=== PATIENT | female | born 1960 | race Caucasian/White ===

== ENCOUNTER 2024-01-08 13:11 | Outpatient (RCR) | payer MEDICARE, OTHER, SELFPAY ==
[2024-01-02] VITALS (9 sets, daily range): BP systolic 113–157; BP diastolic 47–86; BMI 32.2
[2024-01-02] MEDS: NSS 1000 IV (10:42)
[2024-01-02] MEDS: TYLENOL 650 MG PO (10:43)
[2024-01-02] MEDS: BENADRYL 51 MG IV (10:44)
[2024-01-02] MEDS: SOLU-CORTEF 100 MG IV (10:44)
[2024-01-02 10:47] LABS: % Basophils 0.8 % (0-2); % Eosinophils 0.8 % (0-6); % Lymphocytes 31.3 % (20.5-51.1); % Neutrophils 61.1 % (42.2-75.2); Absolute Lymphocytes 1.2 10^3/uL (1.2-3.4); Absolute Monocytes 0.2 10^3/uL (0.1-0.6); Absolute Neutrophils 2.4 10^3/uL (1.4-6.5); Hematocrit 38.1 % (37.0-47.0); Hemoglobin 13.3 g/dL (12.0-16.0); Mean Corp Hgb Conc. 34.9 g/dL (33.0-37.0); Mean Corpuscular Hgb 32.8 pg (27.0-31.0); Mean Corpuscular Volume 94.1 fL (81.0-99.0); Mean Platelet Volume 10.1 fL (7.4-10.4); Platelet Count 185 10^3/uL (130-400); Red Blood Cell Count 4.05 10^6/uL (4.20-5.40); Red Cell Dist. Width 13.3 % (11.5-14.5); White Blood Cell Count 3.8 10^3/uL (4.8-10.8)
[2024-01-02] MEDS: GAMMAGARD 50 IV (11:21)
[2024-01-02 11:45] LABS: ALT (SGPT) 18 U/L (0-35); AST (SGOT) 28 U/L (14-36); Alkaline Phosphatase 98 U/L (38-126); Blood Urea Nitrogen 9 mg/dl (7-17); Calcium 9.3 mg/dl (8.4-10.2); Carbon Dioxide 26 mmol/L (22-30); Chloride 105 mmol/L (98-107); Estimated Creatinine Clearance 57 ml/min; Glucose 118 mg/dl (70-99); IgG 1058 mg/dl (700-1600); Potassium 3.8 mmol/L (3.5-5.1); Sodium 137 mmol/L (135-145); Total Bilirubin 0.7 mg/dl (0.2-1.3); Total Protein 6.5 g/dl (6.3-8.2); eGFR > 60.00
[2024-01-02] MEDS: GAMMAGARD 300 IV (12:14)
[2024-01-08 13:24] VITALS: BP 154/94
[2024-01-08] MEDS: NUCALA 1 MG SC (13:34)
== END 2024-01-09 08:13 | disposition home or self-care (01) ==
LOC: OID 13:11
PROVIDERS: ATTENDING PHYSICIAN Internal Medicine Critical Care Medicine; FAMILY PHYSICIAN Family Medicine
DX: J45.50 Severe persistent asthma, uncomplicated (principal); L50.9 Urticaria, unspecified; J82.83 Eosinophilic asthma; D80.1 Nonfamilial hypogammaglobulinemia; R06.89 Other abnormalities of breathing; J98.4 Other disorders of lung; D80.9 Immunodeficiency with predominantly antibody defects, unspecified; R91.8 Other nonspecific abnormal finding of lung field
CPT/HCPCS: 36415; 80053; 82784; 85025; 96361; 96365; 96366; 96367; 96372; 96375; J1569; J2182

== ENCOUNTER 2024-02-04 13:23 | Outpatient (RCR) | payer MEDICARE, OTHER, SELFPAY ==
[2024-01-30] VITALS (9 sets, daily range): BP systolic 109–133; BP diastolic 63–81; BMI 31.8
[2024-01-30] MEDS: TYLENOL 650 MG PO (10:29)
[2024-01-30] MEDS: NSS 1000 IV (10:30)
[2024-01-30] MEDS: SOLU-CORTEF 100 MG IV (10:33)
[2024-01-30] MEDS: BENADRYL 51 MG IV (10:33)
[2024-01-30] MEDS: GAMMAGARD 50 IV (11:03)
[2024-01-30] MEDS: GAMMAGARD 300 IV (12:00)
[2024-02-04 13:25] VITALS: BP 146/84
[2024-02-04] MEDS: NUCALA 1 MG SC (13:42)
== END 2024-02-23 23:59 | disposition home or self-care (01) ==
LOC: OID 13:23
PROVIDERS: ATTENDING PHYSICIAN Internal Medicine Critical Care Medicine; FAMILY PHYSICIAN Family Medicine
DX: J45.50 Severe persistent asthma, uncomplicated (principal); L50.9 Urticaria, unspecified; J82.83 Eosinophilic asthma; D80.1 Nonfamilial hypogammaglobulinemia; R06.89 Other abnormalities of breathing; J98.4 Other disorders of lung; D80.9 Immunodeficiency with predominantly antibody defects, unspecified; R91.8 Other nonspecific abnormal finding of lung field
CPT/HCPCS: 96361; 96365; 96366; 96367; 96372; 96375; J1569; J2182

== ENCOUNTER 2024-03-03 12:54 | Outpatient (RCR) | payer MEDICARE, OTHER, SELFPAY ==
[2024-02-27] VITALS (10 sets, daily range): BP systolic 110–149; BP diastolic 48–82; BMI 32.0
[2024-02-27] MEDS: NSS 1000 IV (11:23)
[2024-02-27] MEDS: TYLENOL 650 MG PO (11:24)
[2024-02-27] MEDS: SOLU-CORTEF 100 MG IV (11:24)
[2024-02-27] MEDS: BENADRYL 51 MG IV (11:25)
[2024-02-27] MEDS: GAMMAGARD 50 IV (11:59)
[2024-02-27] MEDS: GAMMAGARD 300 IV (12:59)
[2024-03-03 13:25] VITALS: BP 141/79
[2024-03-03] MEDS: NUCALA 1 MG SC (13:39)
== END 2024-03-04 08:17 | disposition home or self-care (01) ==
LOC: OID 12:54
PROVIDERS: ATTENDING PHYSICIAN Internal Medicine Critical Care Medicine; FAMILY PHYSICIAN Family Medicine
DX: J45.50 Severe persistent asthma, uncomplicated (principal); L50.9 Urticaria, unspecified; J82.83 Eosinophilic asthma; D80.1 Nonfamilial hypogammaglobulinemia; R06.89 Other abnormalities of breathing; J98.4 Other disorders of lung; D80.9 Immunodeficiency with predominantly antibody defects, unspecified; R91.8 Other nonspecific abnormal finding of lung field
CPT/HCPCS: 96361; 96365; 96366; 96367; 96372; 96375; J1569; J2182

== ENCOUNTER 2024-04-23 10:02 | Outpatient (RCR) | payer MEDICARE, OTHER, SELFPAY ==
[2024-03-26] VITALS (10 sets, daily range): BP systolic 96–129; BP diastolic 55–70; BMI 32.2
[2024-03-26 11:10] LABS: % Basophils 0.2 % (0-2); % Eosinophils 0.6 % (0-6); % Immature Granulocytes 0.6 % (0-0.5); % Lymphocytes 21.2 % (20.5-51.1); % Monocytes 9.4 % (1.7-9.3); Absolute Lymphocytes 1.1 10^3/uL (1.2-3.4); Absolute Monocytes 0.5 10^3/uL (0.1-0.6); Absolute Neutrophils 3.4 10^3/uL (1.4-6.5); Hematocrit 30.7 % (37.0-47.0); Hemoglobin 10.5 g/dL (12.0-16.0); Mean Corp Hgb Conc. 34.2 g/dL (33.0-37.0); Mean Corpuscular Hgb 32.1 pg (27.0-31.0); Mean Corpuscular Volume 93.9 fL (81.0-99.0); Mean Platelet Volume 9.1 fL (7.4-10.4); Platelet Count 268 10^3/uL (130-400); Red Blood Cell Count 3.27 10^6/uL (4.20-5.40); Red Cell Dist. Width 12.5 % (11.5-14.5)
[2024-03-26] MEDS: TYLENOL 650 MG PO (11:14)
[2024-03-26] MEDS: NSS 1000 IV (11:15)
[2024-03-26] MEDS: SOLU-CORTEF 100 MG IV (11:15)
[2024-03-26] MEDS: BENADRYL 51 MG IV (11:16)
[2024-03-26] MEDS: GAMMAGARD 50 IV (11:49)
[2024-03-26 12:23] LABS: ALT (SGPT) 18 U/L (0-35); AST (SGOT) 25 U/L (14-36); Albumin 3.2 g/dl (3.5-5.0); Alkaline Phosphatase 229 U/L (38-126); Blood Urea Nitrogen 5 mg/dl (7-17); Calcium 8.9 mg/dl (8.4-10.2); Carbon Dioxide 31 mmol/L (22-30); Chloride 100 mmol/L (98-107); Estimated Creatinine Clearance 74 ml/min; Glucose 110 mg/dl (70-99); Potassium 3.3 mmol/L (3.5-5.1); Sodium 136 mmol/L (135-145); Total Bilirubin 0.8 mg/dl (0.2-1.3); Total Protein 5.9 g/dl (6.3-8.2); eGFR > 60.00
[2024-03-26] MEDS: GAMMAGARD 300 IV (13:19)
[2024-03-26 14:37] LABS: IgG 827 mg/dl (700-1600)
[2024-03-30 13:00] VITALS: BP 144/77
[2024-03-30] MEDS: NUCALA 1 MG SC (13:49)
[2024-04-23] VITALS (9 sets, daily range): BP systolic 106–156; BP diastolic 80–97; BMI 31.6
[2024-04-23] MEDS: TYLENOL 650 MG PO (10:37)
[2024-04-23] MEDS: NSS 1000 IV (10:37)
[2024-04-23] MEDS: SOLU-CORTEF 100 MG IV (10:50)
[2024-04-23] MEDS: BENADRYL 51 MG IV (10:51)
[2024-04-23] MEDS: GAMMAGARD 50 IV (11:21)
[2024-04-23] MEDS: GAMMAGARD 300 IV (12:20)
== END 2024-04-24 10:22 | disposition home or self-care (01) ==
LOC: OID 10:02
PROVIDERS: ATTENDING PHYSICIAN Internal Medicine Critical Care Medicine; FAMILY PHYSICIAN Family Medicine
DX: J45.50 Severe persistent asthma, uncomplicated (principal); L50.9 Urticaria, unspecified; J82.83 Eosinophilic asthma; D80.1 Nonfamilial hypogammaglobulinemia; R06.89 Other abnormalities of breathing; J98.4 Other disorders of lung; D80.9 Immunodeficiency with predominantly antibody defects, unspecified; R91.8 Other nonspecific abnormal finding of lung field
CPT/HCPCS: 36415; 80053; 82784; 85025; 96361; 96365; 96366; 96367; 96372; 96375; J1569; J2182

== ENCOUNTER 2024-05-21 10:17 | Outpatient (RCR) | payer MEDICARE, OTHER, SELFPAY ==
[2024-04-28 13:21] VITALS: BP 122/80
[2024-04-28] MEDS: NUCALA 1 MG SC (13:39)
[2024-05-21] VITALS (10 sets, daily range): BP systolic 107–149; BP diastolic 66–93
[2024-05-21] MEDS: NSS 1000 IV (11:24)
[2024-05-21] MEDS: TYLENOL 650 MG PO (11:24)
[2024-05-21] MEDS: BENADRYL 51 MG IV (11:27)
[2024-05-21] MEDS: SOLU-CORTEF 100 MG IV (11:32)
[2024-05-21] MEDS: GAMMAGARD 50 IV (12:33)
[2024-05-21] MEDS: GAMMAGARD 300 IV (13:39)
== END 2024-05-22 11:09 | disposition home or self-care (01) ==
LOC: OID 10:17
PROVIDERS: ATTENDING PHYSICIAN Internal Medicine Critical Care Medicine; FAMILY PHYSICIAN Family Medicine
DX: J45.50 Severe persistent asthma, uncomplicated (principal); L50.9 Urticaria, unspecified; J82.83 Eosinophilic asthma; D80.1 Nonfamilial hypogammaglobulinemia; R06.89 Other abnormalities of breathing; J98.4 Other disorders of lung; D80.9 Immunodeficiency with predominantly antibody defects, unspecified; R91.8 Other nonspecific abnormal finding of lung field
CPT/HCPCS: 96360; 96365; 96366; 96367; 96372; 96374; 96375; J1569; J2182

== ENCOUNTER → 2024-05-27 11:24 | Outpatient (REF) | payer MEDICARE, OTHER, SELFPAY | LOC: HWRCS 11:24 | PROVIDERS: ATTENDING PHYSICIAN Internal Medicine Cardiovascular Disease; FAMILY PHYSICIAN Family Medicine | DX: I45.81 Long QT syndrome (principal) | CPT/HCPCS: 93306 ==

== ENCOUNTER 2024-06-18 10:10 | Outpatient (RCR) | payer MEDICARE, OTHER, SELFPAY ==
[2024-06-02 13:10] VITALS: BP 139/69
[2024-06-02] MEDS: NUCALA 1 MG SC (13:49)
[2024-06-18] VITALS (8 sets, daily range): BP systolic 99–142; BP diastolic 48–79; BMI 31.4
[2024-06-18] MEDS: TYLENOL 650 MG PO (10:47)
[2024-06-18] MEDS: NSS 1000 IV (10:47)
[2024-06-18] MEDS: SOLU-CORTEF 100 MG IV (10:48)
[2024-06-18] MEDS: BENADRYL 51 MG IV (10:50)
[2024-06-18] MEDS: GAMMAGARD 50 IV (11:31)
[2024-06-18] MEDS: GAMMAGARD 300 IV (12:31)
== END 2024-06-19 08:19 | disposition home or self-care (01) ==
LOC: OID 10:10
PROVIDERS: ATTENDING PHYSICIAN Internal Medicine Critical Care Medicine; FAMILY PHYSICIAN Family Medicine
DX: J45.50 Severe persistent asthma, uncomplicated (principal); L50.9 Urticaria, unspecified; J82.83 Eosinophilic asthma; D80.1 Nonfamilial hypogammaglobulinemia; R06.89 Other abnormalities of breathing; J98.4 Other disorders of lung; D80.9 Immunodeficiency with predominantly antibody defects, unspecified; R91.8 Other nonspecific abnormal finding of lung field
CPT/HCPCS: 96361; 96365; 96366; 96367; 96372; 96375; J1569; J2182

== ENCOUNTER 2024-07-16 09:52 | Outpatient (RCR) | payer MEDICARE, OTHER, SELFPAY ==
[2024-07-01 13:26] VITALS: BP 148/82
[2024-07-01 13:50] LABS: % Basophils 0.2 % (0-2); % Eosinophils 0.2 % (0-6); % Immature Granulocytes 0.2 % (0-0.5); % Lymphocytes 31.3 % (20.5-51.1); % Monocytes 6.1 % (1.7-9.3); Absolute Lymphocytes 1.3 10^3/uL (1.2-3.4); Absolute Monocytes 0.3 10^3/uL (0.1-0.6); Absolute Neutrophils 2.6 10^3/uL (1.4-6.5); Hematocrit 36.9 % (37.0-47.0); Hemoglobin 12.4 g/dL (12.0-16.0); Mean Corp Hgb Conc. 33.6 g/dL (33.0-37.0); Mean Corpuscular Hgb 31.4 pg (27.0-31.0); Mean Corpuscular Volume 93.4 fL (81.0-99.0); Mean Platelet Volume 10.7 fL (7.4-10.4); Platelet Count 136 10^3/uL (130-400); Red Blood Cell Count 3.95 10^6/uL (4.20-5.40); Red Cell Dist. Width 13.5 % (11.5-14.5); White Blood Cell Count 4.1 10^3/uL (4.8-10.8)
[2024-07-01] MEDS: NUCALA 1 MG SC (13:52)
[2024-07-01 15:44] LABS: ALT (SGPT) 18 U/L (0-35); AST (SGOT) 30 U/L (14-36); Albumin 3.9 g/dl (3.5-5.0); Alkaline Phosphatase 91 U/L (38-126); Blood Urea Nitrogen 11 mg/dl (7-17); Calcium 9.1 mg/dl (8.4-10.2); Carbon Dioxide 30 mmol/L (22-30); Chloride 105 mmol/L (98-107); Glucose 111 mg/dl (70-99); Potassium 4.9 mmol/L (3.5-5.1); Sodium 139 mmol/L (135-145); Total Bilirubin 0.7 mg/dl (0.2-1.3); Total Protein 6.5 g/dl (6.3-8.2); eGFR > 60.00
[2024-07-16] VITALS (9 sets, daily range): BP systolic 94–135; BP diastolic 51–81; BMI 32.0
[2024-07-16] MEDS: NSS 1000 IV (10:37)
[2024-07-16] MEDS: TYLENOL 650 MG PO (10:37)
[2024-07-16] MEDS: SOLU-CORTEF 100 MG IV (10:43)
[2024-07-16] MEDS: BENADRYL 51 MG IV (10:44)
[2024-07-16 10:47] LABS: % Basophils 0.3 % (0-2); % Eosinophils 0.2 % (0-6); % Immature Granulocytes 0.2 % (0-0.5); % Lymphocytes 15.8 % (20.5-51.1); % Monocytes 8.8 % (1.7-9.3); % Neutrophils 74.7 % (42.2-75.2); Absolute Monocytes 0.6 10^3/uL (0.1-0.6); Absolute Neutrophils 4.8 10^3/uL (1.4-6.5); Hematocrit 33.7 % (37.0-47.0); Hemoglobin 11.5 g/dL (12.0-16.0); Mean Corp Hgb Conc. 34.1 g/dL (33.0-37.0); Mean Corpuscular Hgb 31.9 pg (27.0-31.0); Mean Corpuscular Volume 93.4 fL (81.0-99.0); Platelet Count 175 10^3/uL (130-400); Red Blood Cell Count 3.61 10^6/uL (4.20-5.40); Red Cell Dist. Width 13.7 % (11.5-14.5); White Blood Cell Count 6.5 10^3/uL (4.8-10.8)
[2024-07-16] MEDS: GAMMAGARD 50 IV (11:16)
[2024-07-16 11:20] LABS: Erythrocyte Sed Rate 59 mm/hour (0-20)
[2024-07-16 11:38] LABS: ALT (SGPT) 11 U/L (0-35); AST (SGOT) 25 U/L (14-36); Albumin 3.4 g/dl (3.5-5.0); Alkaline Phosphatase 100 U/L (38-126); Blood Urea Nitrogen 10 mg/dl (7-17); Calcium 8.9 mg/dl (8.4-10.2); Carbon Dioxide 30 mmol/L (22-30); Chloride 100 mmol/L (98-107); Estimated Creatinine Clearance 56 ml/min; Glucose 102 mg/dl (70-99); Potassium 3.9 mmol/L (3.5-5.1); Sodium 138 mmol/L (135-145); Total Protein 5.8 g/dl (6.3-8.2); eGFR > 60.00
[2024-07-16 11:50] LABS: IgG 873 mg/dl (700-1600)
[2024-07-16] MEDS: GAMMAGARD 300 IV (12:09)
== END 2024-07-17 10:50 | disposition home or self-care (01) ==
LOC: OID 09:52
PROVIDERS: ATTENDING PHYSICIAN Internal Medicine Critical Care Medicine; FAMILY PHYSICIAN Family Medicine
DX: J45.50 Severe persistent asthma, uncomplicated; J82.83 Eosinophilic asthma; L50.9 Urticaria, unspecified; D80.1 Nonfamilial hypogammaglobulinemia; R06.89 Other abnormalities of breathing; J98.4 Other disorders of lung; D80.9 Immunodeficiency with predominantly antibody defects, unspecified; R91.8 Other nonspecific abnormal finding of lung field
CPT/HCPCS: 36415; 80053; 82784; 85025; 85652; 96361; 96365; 96366; 96372; 96375; J1569; J2182

== ENCOUNTER 2024-08-13 10:12 | Outpatient (RCR) | payer MEDICARE, OTHER, SELFPAY ==
[2024-07-28 13:25] VITALS: BP 135/70
[2024-07-28] MEDS: NUCALA 1 MG SC (13:33)
[2024-08-13] VITALS (8 sets, daily range): BP systolic 136–161; BP diastolic 68–95
[2024-08-13] MEDS: NSS 1000 IV (10:59)
[2024-08-13] MEDS: TYLENOL 650 MG PO (10:59)
[2024-08-13] MEDS: SOLU-CORTEF 100 MG IV (11:00)
[2024-08-13] MEDS: BENADRYL 51 MG IV (11:02)
[2024-08-13] MEDS: GAMMAGARD 50 IV (11:32)
[2024-08-13] MEDS: GAMMAGARD 300 IV (12:17)
== END 2024-08-14 09:53 | disposition home or self-care (01) ==
LOC: OID 10:12
PROVIDERS: ATTENDING PHYSICIAN Internal Medicine Critical Care Medicine; FAMILY PHYSICIAN Family Medicine
DX: J45.50 Severe persistent asthma, uncomplicated (principal); L50.9 Urticaria, unspecified; J82.83 Eosinophilic asthma; D80.1 Nonfamilial hypogammaglobulinemia; R06.89 Other abnormalities of breathing; J98.4 Other disorders of lung; D80.9 Immunodeficiency with predominantly antibody defects, unspecified; R91.8 Other nonspecific abnormal finding of lung field
CPT/HCPCS: 96365; 96366; 96367; 96372; 96374; 96375; J1569; J2182

== ENCOUNTER 2024-09-22 13:17 | Outpatient (RCR) | payer MEDICARE, OTHER, SELFPAY ==
[2024-08-25 13:33] VITALS: BP 124/84
[2024-08-25] MEDS: NUCALA 1 MG SC (14:06)
[2024-09-10] VITALS (10 sets, daily range): BP systolic 138–159; BP diastolic 47–88; BMI 31.9
[2024-09-10] MEDS: NSS 1000 IV (10:45)
[2024-09-10] MEDS: SOLU-CORTEF 100 MG IV (10:46)
[2024-09-10] MEDS: TYLENOL 650 MG PO (10:47)
[2024-09-10] MEDS: BENADRYL 51 MG IV (10:47)
[2024-09-10] MEDS: GAMMAGARD 50 IV (11:20)
[2024-09-10] MEDS: GAMMAGARD 300 IV (12:20)
[2024-09-22 13:28] VITALS: BP 152/77
[2024-09-22] MEDS: NUCALA 1 MG SC (13:36)
== END 2024-09-23 10:25 | disposition home or self-care (01) ==
LOC: OID 13:17
PROVIDERS: ATTENDING PHYSICIAN Internal Medicine Critical Care Medicine; FAMILY PHYSICIAN Family Medicine
DX: J45.50 Severe persistent asthma, uncomplicated (principal); L50.9 Urticaria, unspecified; J82.83 Eosinophilic asthma; D80.1 Nonfamilial hypogammaglobulinemia; R06.89 Other abnormalities of breathing; J98.4 Other disorders of lung; D80.9 Immunodeficiency with predominantly antibody defects, unspecified; R91.8 Other nonspecific abnormal finding of lung field
CPT/HCPCS: 96361; 96365; 96366; 96367; 96372; 96375; J1569; J2182

== ENCOUNTER 2024-10-20 13:03 | Outpatient (RCR) | payer MEDICARE, OTHER, SELFPAY ==
[2024-09-30] VITALS (10 sets, daily range): BP systolic 91–134; BP diastolic 44–86
[2024-09-30 10:56] LABS: % Basophils 0.4 % (0-2); % Eosinophils 0.7 % (0-6); % Lymphocytes 31.3 % (20.5-51.1); % Monocytes 6.9 % (1.7-9.3); % Neutrophils 60.7 % (42.2-75.2); Absolute Lymphocytes 1.4 10^3/uL (1.2-3.4); Absolute Monocytes 0.3 10^3/uL (0.1-0.6); Absolute Neutrophils 2.7 10^3/uL (1.4-6.5); Hematocrit 37.7 % (37.0-47.0); Hemoglobin 12.9 g/dL (12.0-16.0); Mean Corp Hgb Conc. 34.2 g/dL (33.0-37.0); Mean Corpuscular Hgb 31.5 pg (27.0-31.0); Mean Corpuscular Volume 92.2 fL (81.0-99.0); Mean Platelet Volume 10.3 fL (7.4-10.4); Platelet Count 201 10^3/uL (130-400); Red Blood Cell Count 4.09 10^6/uL (4.20-5.40); Red Cell Dist. Width 13.4 % (11.5-14.5); White Blood Cell Count 4.5 10^3/uL (4.8-10.8)
[2024-09-30] MEDS: NSS 1000 IV (11:00)
[2024-09-30] MEDS: TYLENOL 650 MG PO (11:01)
[2024-09-30] MEDS: SOLU-CORTEF 100 MG IV (11:02)
[2024-09-30] MEDS: BENADRYL 51 MG IV (11:02)
[2024-09-30] MEDS: GAMMAGARD 50 IV (11:57)
[2024-09-30] MEDS: GAMMAGARD 300 IV (12:58)
[2024-09-30 13:56] LABS: ALT (SGPT) 24 U/L (0-35); AST (SGOT) 31 U/L (14-36); Albumin 4.2 g/dl (3.5-5.0); Alkaline Phosphatase 96 U/L (38-126); Blood Urea Nitrogen 19 mg/dl (7-17); Calcium 9.5 mg/dl (8.4-10.2); Carbon Dioxide 23 mmol/L (22-30); Chloride 104 mmol/L (98-107); Glucose 87 mg/dl (70-99); Potassium 3.7 mmol/L (3.5-5.1); Sodium 141 mmol/L (135-145); Total Bilirubin 1.1 mg/dl (0.2-1.3); Total Protein 6.8 g/dl (6.3-8.2); eGFR > 60.00
[2024-09-30 23:35] LABS: IgG 1174 mg/dl (700-1600)
[2024-10-20 13:10] VITALS: BP 144/89
[2024-10-20] MEDS: NUCALA 1 MG SC (13:40)
== END 2024-10-21 11:17 | disposition home or self-care (01) ==
LOC: OID 13:03
PROVIDERS: ATTENDING PHYSICIAN Internal Medicine Critical Care Medicine; FAMILY PHYSICIAN Family Medicine
DX: J45.50 Severe persistent asthma, uncomplicated (principal); L50.9 Urticaria, unspecified; J82.83 Eosinophilic asthma; D80.1 Nonfamilial hypogammaglobulinemia; R06.89 Other abnormalities of breathing; J98.4 Other disorders of lung; D80.9 Immunodeficiency with predominantly antibody defects, unspecified; R91.8 Other nonspecific abnormal finding of lung field
CPT/HCPCS: 36415; 80053; 82784; 85025; 96365; 96366; 96367; 96372; 96375; J1569; J2182

== ENCOUNTER 2024-11-17 10:20 | Outpatient (RCR) | payer MEDICARE, OTHER, SELFPAY ==
[2024-11-05] VITALS (10 sets, daily range): BP systolic 132–170; BP diastolic 72–91
[2024-11-05] MEDS: NSS 1000 IV (10:34)
[2024-11-05] MEDS: BENADRYL 51 MG IV (10:34)
[2024-11-05] MEDS: TYLENOL 650 MG PO (10:35)
[2024-11-05] MEDS: SOLU-CORTEF 100 MG IV (10:35)
[2024-11-05] MEDS: GAMMAGARD 50 IV (11:00)
[2024-11-05] MEDS: GAMMAGARD 300 IV (11:57)
[2024-11-17 10:25] VITALS: BP 152/84
[2024-11-17] MEDS: NUCALA 1 MG SC (10:42)
== END 2024-11-19 08:27 | disposition home or self-care (01) ==
LOC: OID 10:20
PROVIDERS: ATTENDING PHYSICIAN Internal Medicine Critical Care Medicine; FAMILY PHYSICIAN Family Medicine
DX: J45.50 Severe persistent asthma, uncomplicated (principal); L50.9 Urticaria, unspecified; J82.83 Eosinophilic asthma; D80.1 Nonfamilial hypogammaglobulinemia; R06.89 Other abnormalities of breathing; J98.4 Other disorders of lung; D80.9 Immunodeficiency with predominantly antibody defects, unspecified; R91.8 Other nonspecific abnormal finding of lung field
CPT/HCPCS: 96361; 96365; 96366; 96367; 96372; 96375; J1569; J2182

== ENCOUNTER 2024-12-15 13:05 | Outpatient (RCR) | payer MEDICARE, OTHER, SELFPAY ==
[2024-12-03] VITALS (9 sets, daily range): BP systolic 130–157; BP diastolic 65–83; BMI 32.9
[2024-12-03] MEDS: TYLENOL 650 MG PO (10:42)
[2024-12-03] MEDS: SOLU-CORTEF 100 MG IV (10:44)
[2024-12-03] MEDS: BENADRYL 51 MG IV (10:45)
[2024-12-03] MEDS: NSS 1000 IV (10:52)
[2024-12-03] MEDS: GAMMAGARD 50 IV (11:20)
[2024-12-03] MEDS: GAMMAGARD 300 IV (12:13)
[2024-12-15 13:30] VITALS: BP 139/75
[2024-12-15] MEDS: NUCALA 1 MG SC (13:50)
== END 2024-12-16 10:19 | disposition home or self-care (01) ==
LOC: OID 13:05
PROVIDERS: ATTENDING PHYSICIAN Internal Medicine Critical Care Medicine; FAMILY PHYSICIAN Family Medicine
DX: J45.50 Severe persistent asthma, uncomplicated (principal); L50.9 Urticaria, unspecified; J82.83 Eosinophilic asthma; D80.1 Nonfamilial hypogammaglobulinemia; R06.89 Other abnormalities of breathing; J98.4 Other disorders of lung; D80.9 Immunodeficiency with predominantly antibody defects, unspecified; R91.8 Other nonspecific abnormal finding of lung field
CPT/HCPCS: 96361; 96365; 96366; 96372; 96374; 96375; J1569; J2182

== ENCOUNTER 2025-01-12 13:11 | Outpatient (RCR) | payer MEDICARE, OTHER, SELFPAY ==
[2025-01-04] VITALS (10 sets, daily range): BP systolic 114–145; BP diastolic 63–95
[2025-01-04 11:27] LABS: % Basophils 0.5 % (0-2); % Eosinophils 0.2 % (0-6); % Lymphocytes 23.9 % (20.5-51.1); % Neutrophils 68.4 % (42.2-75.2); Absolute Monocytes 0.3 10^3/uL (0.1-0.6); Absolute Neutrophils 2.8 10^3/uL (1.4-6.5); Hemoglobin 12.3 g/dL (12.0-16.0); Mean Corp Hgb Conc. 34.2 g/dL (33.0-37.0); Mean Corpuscular Hgb 29.6 pg (27.0-31.0); Mean Corpuscular Volume 86.5 fL (81.0-99.0); Platelet Count 211 10^3/uL (130-400); Red Blood Cell Count 4.16 10^6/uL (4.20-5.40); Red Cell Dist. Width 13.6 % (11.5-14.5); White Blood Cell Count 4.1 10^3/uL (4.8-10.8)
[2025-01-04] MEDS: NSS 1000 IV (11:32)
[2025-01-04] MEDS: TYLENOL 650 MG PO (11:36)
[2025-01-04] MEDS: SOLU-CORTEF 100 MG IV (11:38)
[2025-01-04] MEDS: BENADRYL 51 MG IV (11:38)
[2025-01-04] MEDS: GAMMAGARD 50 IV (12:07)
[2025-01-04 12:47] LABS: ALT (SGPT) 21 U/L (0-35); AST (SGOT) 33 U/L (14-36); Albumin 4.3 g/dl (3.5-5.0); Alkaline Phosphatase 102 U/L (38-126); Blood Urea Nitrogen 10 mg/dl (7-17); Calcium 9.5 mg/dl (8.4-10.2); Carbon Dioxide 23 mmol/L (22-30); Chloride 100 mmol/L (98-107); Glucose 131 mg/dl (70-99); Potassium 3.8 mmol/L (3.5-5.1); Sodium 138 mmol/L (135-145); Total Bilirubin 1.3 mg/dl (0.2-1.3); Total Protein 6.6 g/dl (6.3-8.2); eGFR > 60.00
[2025-01-04] MEDS: GAMMAGARD 300 IV (13:08)
[2025-01-04 14:22] LABS: IgG 1025 mg/dl (700-1600)
[2025-01-12 13:20] VITALS: BP 134/69
[2025-01-12] MEDS: NUCALA 1 MG SC (13:47)
== END 2025-01-13 09:44 | disposition home or self-care (01) ==
LOC: OID 13:11
PROVIDERS: ATTENDING PHYSICIAN Internal Medicine Critical Care Medicine; FAMILY PHYSICIAN Family Medicine
DX: J45.50 Severe persistent asthma, uncomplicated (principal); L50.9 Urticaria, unspecified; J82.83 Eosinophilic asthma; D80.1 Nonfamilial hypogammaglobulinemia; R06.89 Other abnormalities of breathing; J98.4 Other disorders of lung; D80.9 Immunodeficiency with predominantly antibody defects, unspecified; R91.8 Other nonspecific abnormal finding of lung field
CPT/HCPCS: 36415; 80053; 82784; 85025; 96361; 96365; 96366; 96367; 96372; 96375; J1569; J2182

== ENCOUNTER 2025-02-09 13:03 | Outpatient (RCR) | payer MEDICARE, OTHER, SELFPAY ==
[2025-01-28] VITALS (10 sets, daily range): BP systolic 134–158; BP diastolic 67–90; BMI 32.4
[2025-01-28] MEDS: NSS 1000 IV (10:23)
[2025-01-28] MEDS: TYLENOL 650 MG PO (10:23)
[2025-01-28] MEDS: SOLU-CORTEF 100 MG IV (10:27)
[2025-01-28] MEDS: BENADRYL 51 MG IV (10:28)
[2025-01-28] MEDS: GAMMAGARD 50 IV (10:57)
[2025-01-28] MEDS: GAMMAGARD 300 IV (11:54)
[2025-02-09 13:45] VITALS: BP 144/90
[2025-02-09] MEDS: NUCALA 1 MG SC (13:56)
== END 2025-02-22 14:51 | disposition home or self-care (01) ==
LOC: OID 13:03
PROVIDERS: ATTENDING PHYSICIAN Internal Medicine Critical Care Medicine; FAMILY PHYSICIAN Family Medicine
DX: J45.50 Severe persistent asthma, uncomplicated (principal); L50.9 Urticaria, unspecified; J82.83 Eosinophilic asthma; D80.1 Nonfamilial hypogammaglobulinemia; R06.89 Other abnormalities of breathing; J98.4 Other disorders of lung; D80.9 Immunodeficiency with predominantly antibody defects, unspecified; R91.8 Other nonspecific abnormal finding of lung field
CPT/HCPCS: 96361; 96365; 96366; 96367; 96372; 96375; J1569; J2182

== ENCOUNTER 2025-03-09 12:59 | Outpatient (RCR) | payer MEDICARE, OTHER, SELFPAY ==
[2025-02-25] VITALS (9 sets, daily range): BP systolic 120–145; BP diastolic 66–81; BMI 32.0
[2025-02-25] MEDS: TYLENOL 650 MG PO (10:40)
[2025-02-25] MEDS: SOLU-CORTEF 100 MG IV (10:41)
[2025-02-25] MEDS: NSS 1000 IV (10:42)
[2025-02-25] MEDS: BENADRYL 51 MG IV (10:43)
[2025-02-25] MEDS: GAMMAGARD 50 IV (11:15)
[2025-02-25] MEDS: GAMMAGARD 300 IV (12:10)
[2025-03-09 13:13] VITALS: BP 153/84
[2025-03-09] MEDS: NUCALA 1 MG SC (13:28)
== END 2025-03-24 10:36 | disposition home or self-care (01) ==
LOC: OID 12:59
PROVIDERS: ATTENDING PHYSICIAN Internal Medicine Critical Care Medicine; FAMILY PHYSICIAN Family Medicine
DX: J45.50 Severe persistent asthma, uncomplicated (principal); L50.9 Urticaria, unspecified; J82.83 Eosinophilic asthma; D80.1 Nonfamilial hypogammaglobulinemia; R06.89 Other abnormalities of breathing; J98.4 Other disorders of lung; D80.9 Immunodeficiency with predominantly antibody defects, unspecified; R91.8 Other nonspecific abnormal finding of lung field
CPT/HCPCS: 96361; 96365; 96366; 96367; 96372; 96375; J1569; J2182

== ENCOUNTER 2025-04-22 10:27 | Outpatient (RCR) | payer MEDICARE, OTHER, SELFPAY ==
[2025-03-25] VITALS (10 sets, daily range): BP systolic 122–141; BP diastolic 63–83; BMI 32.2
[2025-03-25] MEDS: TYLENOL 650 MG PO (10:47)
[2025-03-25] MEDS: NSS 1000 IV (10:47)
[2025-03-25] MEDS: SOLU-CORTEF 100 MG IV (10:48)
[2025-03-25] MEDS: BENADRYL 51 MG IV (10:49)
[2025-03-25] MEDS: GAMMAGARD 50 IV (11:20)
[2025-03-25 11:34] LABS: % Basophils 0.5 % (0-2); % Eosinophils 0.7 % (0-6); % Immature Granulocytes 0.4 % (0-0.5); % Lymphocytes 20.9 % (20.5-51.1); % Monocytes 7.8 % (1.7-9.3); % Neutrophils 69.7 % (42.2-75.2); Absolute Lymphocytes 1.2 10^3/uL (1.2-3.4); Absolute Monocytes 0.4 10^3/uL (0.1-0.6); Absolute Neutrophils 3.9 10^3/uL (1.4-6.5); Hematocrit 36.6 % (37.0-47.0); Hemoglobin 12.6 g/dL (12.0-16.0); Mean Corp Hgb Conc. 34.4 g/dL (33.0-37.0); Mean Corpuscular Hgb 31.3 pg (27.0-31.0); Nucleated Red Blood Cells % 0 %; Platelet Count 184 10^3/uL (130-400); Red Blood Cell Count 4.02 10^6/uL (4.20-5.40); Red Cell Dist. Width 14.6 % (11.5-14.5); White Blood Cell Count 5.6 10^3/uL (4.8-10.8)
[2025-03-25 11:49] LABS: ALT (SGPT) 21 U/L (0-35); AST (SGOT) 26 U/L (14-36); Albumin 4.3 g/dl (3.5-5.0); Alkaline Phosphatase 88 U/L (38-126); Blood Urea Nitrogen 15 mg/dl (7-17); Calcium 9.4 mg/dl (8.4-10.2); Carbon Dioxide 27 mmol/L (22-30); Chloride 104 mmol/L (98-107); Estimated Creatinine Clearance 42 ml/min; Glucose 84 mg/dl (70-99); Potassium 3.6 mmol/L (3.5-5.1); Sodium 141 mmol/L (135-145); Total Bilirubin 1.2 mg/dl (0.2-1.3); Total Protein 6.8 g/dl (6.3-8.2); eGFR 50.55
[2025-03-25 11:57] LABS: IgG 1102 mg/dl (700-1600)
[2025-03-25] MEDS: GAMMAGARD 300 IV (12:09)
[2025-04-06 13:35] VITALS: BP 145/80
[2025-04-06] MEDS: NUCALA 1 MG SC (13:46)
[2025-04-22] VITALS (9 sets, daily range): BP systolic 122–137; BP diastolic 63–78; BMI 33.0
[2025-04-22] MEDS: NSS 1000 IV (10:46)
[2025-04-22] MEDS: TYLENOL 650 MG PO (10:47)
[2025-04-22] MEDS: SOLU-CORTEF 100 MG IV (10:50)
[2025-04-22] MEDS: BENADRYL 51 MG IV (10:51)
[2025-04-22] MEDS: GAMMAGARD 50 IV (11:21)
[2025-04-22] MEDS: GAMMAGARD 300 IV (12:21)
== END 2025-04-23 10:00 | disposition home or self-care (01) ==
LOC: OID 10:27
PROVIDERS: ATTENDING PHYSICIAN Internal Medicine Critical Care Medicine; FAMILY PHYSICIAN Family Medicine
DX: J45.50 Severe persistent asthma, uncomplicated (principal); L50.9 Urticaria, unspecified; J82.83 Eosinophilic asthma; D80.1 Nonfamilial hypogammaglobulinemia; R06.89 Other abnormalities of breathing; J98.4 Other disorders of lung; D80.9 Immunodeficiency with predominantly antibody defects, unspecified; R91.8 Other nonspecific abnormal finding of lung field
CPT/HCPCS: 80053; 82784; 85025; 96361; 96365; 96366; 96367; 96372; 96375; J1569; J2182

== ENCOUNTER 2025-05-20 10:15 | Outpatient (RCR) | payer MEDICARE, OTHER, SELFPAY ==
[2025-05-04 13:25] VITALS: BP 137/70
[2025-05-04] MEDS: NUCALA 1 MG SC (13:58)
[2025-05-20] VITALS (9 sets, daily range): BP systolic 118–157; BP diastolic 72–89; BMI 32.2
[2025-05-20] MEDS: NSS 1000 IV (10:43)
[2025-05-20] MEDS: SOLU-CORTEF 100 MG IV (10:43)
[2025-05-20] MEDS: TYLENOL 650 MG PO (10:44)
[2025-05-20] MEDS: BENADRYL 51 MG IV (10:44)
[2025-05-20] MEDS: GAMMAGARD 50 IV (11:21)
[2025-05-20] MEDS: GAMMAGARD 300 IV (12:19)
== END 2025-05-21 09:53 | disposition home or self-care (01) ==
LOC: OID 10:15
PROVIDERS: ATTENDING PHYSICIAN Internal Medicine Critical Care Medicine; FAMILY PHYSICIAN Family Medicine
DX: J45.50 Severe persistent asthma, uncomplicated (principal); L50.9 Urticaria, unspecified; J82.83 Eosinophilic asthma; D80.1 Nonfamilial hypogammaglobulinemia; R06.89 Other abnormalities of breathing; J98.4 Other disorders of lung; D80.9 Immunodeficiency with predominantly antibody defects, unspecified; R91.8 Other nonspecific abnormal finding of lung field
CPT/HCPCS: 96361; 96365; 96366; 96367; 96372; 96375; J1569; J2182

== ENCOUNTER 2025-06-17 10:19 | Outpatient (RCR) | payer MEDICARE, OTHER, SELFPAY ==
[2025-06-02 14:09] VITALS: BP 114/63
[2025-06-02] MEDS: NUCALA 1 MG SC (14:19)
[2025-06-17] VITALS (9 sets, daily range): BP systolic 115–137; BP diastolic 61–76; BMI 32.4
[2025-06-17] MEDS: NSS 1000 IV (10:54)
[2025-06-17] MEDS: TYLENOL 650 MG PO (10:54)
[2025-06-17] MEDS: SOLU-CORTEF 100 MG IV (10:55)
[2025-06-17] MEDS: BENADRYL 51 MG IV (10:56)
[2025-06-17 11:04] LABS: Hematocrit 38.1 % (37.0-47.0); Hemoglobin 12.9 g/dL (12.0-16.0); Mean Corp Hgb Conc. 33.9 g/dL (33.0-37.0); Mean Corpuscular Volume 91.1 fL (81.0-99.0); Platelet Count 208 10^3/uL (130-400); Red Cell Dist. Width 14.2 % (11.5-14.5)
[2025-06-17] MEDS: GAMMAGARD 50 IV (11:26)
[2025-06-17 11:59] LABS: ALT (SGPT) 23 U/L (0-35); AST (SGOT) 30 U/L (14-36); Albumin 4.4 g/dl (3.5-5.0); Alkaline Phosphatase 85 U/L (38-126); Blood Urea Nitrogen 9 mg/dl (7-17); Calcium 9.5 mg/dl (8.4-10.2); Carbon Dioxide 24 mmol/L (22-30); Chloride 107 mmol/L (98-107); Estimated Creatinine Clearance 50 ml/min; Glucose 90 mg/dl (70-99); Potassium 3.5 mmol/L (3.5-5.1); Sodium 139 mmol/L (135-145); Total Protein 7.1 g/dl (6.3-8.2); eGFR > 60.00
[2025-06-17] MEDS: GAMMAGARD 300 IV (12:32)
== END 2025-06-18 08:49 | disposition home or self-care (01) ==
LOC: OID 10:19
PROVIDERS: ATTENDING PHYSICIAN Internal Medicine Critical Care Medicine; FAMILY PHYSICIAN Family Medicine
DX: J45.50 Severe persistent asthma, uncomplicated (principal); J82.83 Eosinophilic asthma; L50.9 Urticaria, unspecified; D80.1 Nonfamilial hypogammaglobulinemia; R06.89 Other abnormalities of breathing; J98.4 Other disorders of lung; D80.9 Immunodeficiency with predominantly antibody defects, unspecified; R91.8 Other nonspecific abnormal finding of lung field
CPT/HCPCS: 36415; 80053; 82784; 85025; 96361; 96365; 96366; 96367; 96372; 96375; J1569; J2182

== ENCOUNTER 2025-07-15 10:17 | Outpatient (RCR) | payer MEDICARE, OTHER, SELFPAY ==
[2025-06-29 13:23] VITALS: BP 152/81
[2025-06-29] MEDS: NUCALA 1 MG SC (13:38)
[2025-07-15] VITALS (9 sets, daily range): BP systolic 135–151; BP diastolic 74–89
[2025-07-15] MEDS: TYLENOL 650 MG PO (10:30)
[2025-07-15] MEDS: BENADRYL 51 MG IV (10:46)
[2025-07-15] MEDS: NSS 1000 IV (10:47)
[2025-07-15] MEDS: SOLU-CORTEF 100 MG IV (10:52)
[2025-07-15] MEDS: GAMMAGARD 50 IV (11:21)
[2025-07-15] MEDS: GAMMAGARD 300 IV (12:37)
== END 2025-07-16 08:50 | disposition home or self-care (01) ==
LOC: OID 10:17
PROVIDERS: ATTENDING PHYSICIAN Internal Medicine Critical Care Medicine; FAMILY PHYSICIAN Family Medicine
DX: J45.50 Severe persistent asthma, uncomplicated (principal); D80.1 Nonfamilial hypogammaglobulinemia; L50.9 Urticaria, unspecified; J82.83 Eosinophilic asthma; R06.89 Other abnormalities of breathing; J98.4 Other disorders of lung; D80.9 Immunodeficiency with predominantly antibody defects, unspecified; R91.8 Other nonspecific abnormal finding of lung field
CPT/HCPCS: 96361; 96365; 96366; 96367; 96372; J1569; J2182

== ENCOUNTER 2025-08-24 11:02 | Outpatient (RCR) | payer MEDICARE, OTHER, SELFPAY ==
[2025-07-27 11:10] VITALS: BP 121/75
[2025-07-27] MEDS: NUCALA 1 MG SC (11:32)
[2025-08-12] VITALS (9 sets, daily range): BP systolic 98–150; BP diastolic 52–85
[2025-08-12] MEDS: TYLENOL 650 MG PO (10:51)
[2025-08-12] MEDS: SOLU-CORTEF 100 MG IV (10:51)
[2025-08-12] MEDS: BENADRYL 51 MG IV (10:52)
[2025-08-12] MEDS: NSS 1000 IV (10:52)
[2025-08-12] MEDS: GAMMAGARD 50 IV (11:22)
[2025-08-12] MEDS: GAMMAGARD 300 IV (12:21)
[2025-08-24 11:00] VITALS: BP 134/72
[2025-08-24] MEDS: NUCALA 1 MG SC (11:24)
== END 2025-08-24 23:59 | disposition home or self-care (01) ==
LOC: OID 11:02
PROVIDERS: ATTENDING PHYSICIAN Internal Medicine Critical Care Medicine; FAMILY PHYSICIAN Family Medicine
DX: J45.50 Severe persistent asthma, uncomplicated (principal); D80.1 Nonfamilial hypogammaglobulinemia; L50.9 Urticaria, unspecified; J82.83 Eosinophilic asthma; R06.09 Other forms of dyspnea; R06.89 Other abnormalities of breathing; J98.4 Other disorders of lung; D80.9 Immunodeficiency with predominantly antibody defects, unspecified; R91.8 Other nonspecific abnormal finding of lung field
CPT/HCPCS: 96372; 96361; 96365; 96366; 96367; 96375; J1569; J2182

== ENCOUNTER 2025-09-09 10:59 | Outpatient (RCR) | payer MEDICARE, OTHER, SELFPAY ==
[2025-09-09] VITALS (9 sets, daily range): BP systolic 135–144; BP diastolic 64–94; BMI 32.4
[2025-09-09 11:34] LABS: Hematocrit 37.5 % (37.0-47.0); Hemoglobin 12.9 g/dL (12.0-16.0); Mean Corp Hgb Conc. 34.4 g/dL (33.0-37.0); Mean Corpuscular Volume 90.1 fL (81.0-99.0); Platelet Count 217 10^3/uL (130-400); Red Cell Dist. Width 13.0 % (11.5-14.5)
[2025-09-09] MEDS: NSS 1000 IV (11:37)
[2025-09-09] MEDS: SOLU-CORTEF 100 MG IV (11:38)
[2025-09-09] MEDS: BENADRYL 51 MG IV (11:38)
[2025-09-09] MEDS: TYLENOL 650 MG PO (11:38)
[2025-09-09] MEDS: GAMMAGARD 50 IV (12:07)
[2025-09-09 12:18] LABS: ALT (SGPT) 22 U/L (0-35); AST (SGOT) 30 U/L (14-36); Albumin 4.3 g/dl (3.5-5.0); Alkaline Phosphatase 98 U/L (38-126); Blood Urea Nitrogen 10 mg/dl (7-17); Calcium 9.4 mg/dl (8.4-10.2); Carbon Dioxide 24 mmol/L (22-30); Chloride 103 mmol/L (98-107); Estimated Creatinine Clearance 56 ml/min; Glucose 115 mg/dl (70-99); Potassium 3.8 mmol/L (3.5-5.1); Sodium 136 mmol/L (135-145); Total Protein 7.0 g/dl (6.3-8.2); eGFR > 60.00
[2025-09-09] MEDS: GAMMAGARD 300 IV (13:06)
== END 2025-09-24 23:59 | disposition home or self-care (01) ==
LOC: OID 10:59
PROVIDERS: ATTENDING PHYSICIAN Internal Medicine Critical Care Medicine; FAMILY PHYSICIAN Family Medicine
DX: J45.50 Severe persistent asthma, uncomplicated (principal); D80.1 Nonfamilial hypogammaglobulinemia; L50.9 Urticaria, unspecified; J82.83 Eosinophilic asthma; R06.89 Other abnormalities of breathing; J98.4 Other disorders of lung; D80.9 Immunodeficiency with predominantly antibody defects, unspecified; R91.8 Other nonspecific abnormal finding of lung field
CPT/HCPCS: 36415; 80053; 82784; 85025; 96361; 96365; 96366; 96367; 96375; J1569

== ENCOUNTER 2025-09-21 11:11 | Outpatient (RCR) | payer MEDICARE, OTHER, SELFPAY ==
[2025-09-21 11:25] VITALS: BP 147/74
[2025-09-21] MEDS: NUCALA 1 MG SC (11:31)
== END 2025-09-24 23:59 | disposition home or self-care (01) ==
LOC: OID 11:11
PROVIDERS: ATTENDING PHYSICIAN Internal Medicine Critical Care Medicine; FAMILY PHYSICIAN Family Medicine
DX: J45.50 Severe persistent asthma, uncomplicated (principal); D80.1 Nonfamilial hypogammaglobulinemia; L50.9 Urticaria, unspecified; J82.83 Eosinophilic asthma; R06.89 Other abnormalities of breathing; J98.4 Other disorders of lung; D80.9 Immunodeficiency with predominantly antibody defects, unspecified; R91.8 Other nonspecific abnormal finding of lung field
CPT/HCPCS: 96372; J2182

== ENCOUNTER 2025-10-07 10:09 | Outpatient (RCR) | payer MEDICARE, OTHER, SELFPAY ==
[2025-10-07] VITALS (9 sets, daily range): BP systolic 125–138; BP diastolic 63–85; BMI 32.1
[2025-10-07] MEDS: NSS 1000 IV (10:57)
[2025-10-07] MEDS: SOLU-CORTEF 100 MG IV (10:58)
[2025-10-07] MEDS: BENADRYL 51 MG IV (10:59)
[2025-10-07] MEDS: TYLENOL 650 MG PO (10:59)
[2025-10-07] MEDS: GAMMAGARD 50 IV (11:32)
[2025-10-07] MEDS: GAMMAGARD 300 IV (12:25)
== END 2025-10-22 14:28 | disposition home or self-care (01) ==
LOC: OID 10:09
PROVIDERS: ATTENDING PHYSICIAN Internal Medicine Critical Care Medicine; FAMILY PHYSICIAN Family Medicine
DX: J45.50 Severe persistent asthma, uncomplicated (principal); D80.1 Nonfamilial hypogammaglobulinemia; L50.9 Urticaria, unspecified; J82.83 Eosinophilic asthma; R06.89 Other abnormalities of breathing; J98.4 Other disorders of lung; D80.9 Immunodeficiency with predominantly antibody defects, unspecified; R91.8 Other nonspecific abnormal finding of lung field
CPT/HCPCS: 96361; 96365; 96366; 96367; 96375; J1569

== ENCOUNTER 2025-10-08 14:03 | Emergency (ER) | payer MEDICARE, OTHER, SELFPAY ==
[2025-10-08 14:10] VITALS: BP 139/85
[2025-10-08 18:45] VITALS: BMI 31.9
[2025-10-08 18:52] VITALS: BP 143/88
[2025-10-08 19:00] VITALS: BP 158/91
[2025-10-08 19:10] LABS: COVID-19 Antigen Positive (Negative); Hematocrit 36.9 % (37.0-47.0); Hemoglobin 12.8 g/dL (12.0-16.0); Mean Corp Hgb Conc. 34.7 g/dL (33.0-37.0); Mean Corpuscular Volume 88.7 fL (81.0-99.0); Nucleated Red Blood Cells % 0 %; Platelet Count 160 10^3/uL (130-400); Red Cell Dist. Width 13.8 % (11.5-14.5)
[2025-10-08 19:22] LABS: ALT (SGPT) 29 U/L (0-35); AST (SGOT) 34 U/L (14-36); Albumin 4.5 g/dl (3.5-5.0); Alkaline Phosphatase 122 U/L (38-126); Blood Urea Nitrogen 5 mg/dl (7-17); Calcium 9.2 mg/dl (8.4-10.2); Carbon Dioxide 29 mmol/L (22-30); Chloride 100 mmol/L (98-107); Estimated Creatinine Clearance 63 ml/min; Glucose 95 mg/dl (70-99); Potassium 4.1 mmol/L (3.5-5.1); Sodium 136 mmol/L (135-145); Total Protein 8.3 g/dl (6.3-8.2); eGFR > 60.00
--- NOTE | 2025-10-08 19:37 | ED.GENMED ---
History of Present Illness
General
Chief Complaint: Cold/Flu/URI Symptoms
Source: patient
Exam Limitations: none
Time Seen by Provider: 10/08/25 18:32
Nursing documentation reviewed up to this point in time: agreed with
History of Present Illness
History of Present Illness:
Patient to the emergency department with complaint of fever, body aches, worsening cough, nasal congestion, headache. Symptoms started yesterday. She has a prior history of COPD and is concerned that she has pneumonia. Brought to the emergency
department by friend for evaluation.
Past History
Past History
ED Past Medical History: Asthma, COPD, HTN, Hypercholesterolemia, NIDDM and Other (IgG Immune deficiency, pulmonary emboli, Long QT, hand tremors, Degenerative disc disease)
ED Past Surgical History: Cholecystectomy, Gynecological, Orthopedic and Other (IVC filter placement and removal, Hernia,)
Social History
Tobacco: Non-smoker
Alcohol: None
Drug: None
Personal: Single
Living: with family
Family History
Family History: Negative Diabetes, Hypertension or CAD
Review of Systems
Review of Systems
Constitutional: Reports fever and fatigue
EENT: Reports no symptoms
Respiratory: Reports cough
Cardiac: Reports no symptoms
ABD/GI: Reports no symptoms
: Reports no symptoms
Musculoskeletal: Reports no symptoms
Skin: Reports no symptoms
Neurological: Reports headache
Psychiatric: Reports no symptoms
Phy Exam
General Physical Exam
General Presentation: mild distress
General age: appears stated age
General Skin: warm and dry
General Habitus: normal
General Mental: alert
Cardiovascular Exam
Cardiovascular Exam: regular rate/rhythm
Pulmonary Exam
Pulmonary Exam: lungs clear and no respiratory distress
Cough: coarse cough
Gastrointestinal Exam
Gastrointestinal Exam: non tender and soft
Musculoskeletal Exam
Musculoskeletal Exam: full ROM and neuro vasc intact
Skin Exam
Skin Exam: normal color, warm/dry and no rash
Psychiatric Exam
Psychiatric Exam: normal mood/affect
Course
Orders/Labs/Results
Orders:
Orders
10/08/25 14:15
CXR2 [CR Chest - 2 Views ] Urgent
Comment:
Reason For Exam: cough
10/08/25 14:31
INF RAPID [Influenza A+B Rapid Molecular] Urgent
[facility] Source: Nasal Swab
Specimen Description:
10/08/25 18:55
CMP [Comprehensive Metabolic Panel] Urgent
COVID-19 Antigen Urgent
Source: Nasal Swab
Complete Blood Count/With Diff Urgent
Influenza A+B Rapid Molecular Routine
[facility] Source: [facility]
Specimen Description:
Abnormal Lab Results
10/08/25
18:55
RBC 4.16 L 10^6/uL
(4.20-5.40)
Hct 36.9 L %
(37.0-47.0)
Absolute Lymphs (auto) 0.9 L 10^3/uL
(1.2-3.4)
Lymphocytes % 18.4 L %
(20.5-51.1)
Monocytes % 9.9 H %
(1.7-9.3)
BUN 5 L mg/dl
(7-17)
Total Bilirubin 1.4 H mg/dl
(0.2-1.3)
Total Protein 8.3 H g/dl
(6.3-8.2)
SARS-CoV-2 Antigen Positive A
(Negative)
10/08/25 18:55
10/08/25 18:55
Vital Signs
Initial and Last Documented VS:
Initial Vital Signs
Temp Pulse Resp BP Pulse Ox
98.6 F 89 20 139/85 100
10/08/25 14:10 10/08/25 14:10 10/08/25 14:10 10/08/25 14:10 10/08/25 14:10
Last Documented Vital Signs
Temp Pulse Resp BP Pulse Ox
98.6 F 89 20 158/91 100
10/08/25 14:10 10/08/25 14:10 10/08/25 14:10 10/08/25 19:00 10/08/25 19:37
*Radiology
Radiology exam reviewed: radiology read reviewed
*Pulse Oximetry
SaO2: 100
Oxygen Mode of Delivery: Room air
Patient hypoxic: no
*Critical Care Note
Total Time (30-74mins, 75-104mins- exclusive of procedures): Not Applicable
Update Note
Update Note:
Patient to the emergency department for evaluation of flulike symptoms. Symptoms started yesterday. On arrival she is awake alert and oriented, in no distress. Vital signs stable temp of 98.6. Pulse ox is 98% on room air. Labs reviewed WBC is
4.8. She is COVID-positive, influenza negative. Chest x-ray reviewed no acute findings noted. On exam her lungs are clear to auscultation. No evidence of respiratory distress. she is able to talk in full sentences. Cough is coarse and
productive secretions. Discussed findings of testing with her. She will continue with her nebulized treatments at home. She will be discharged home tonight and will follow-up with her family doctor on Saturday. She was given instructions on signs
and symptoms to return to the emergency department and she is agreeable with this plan.
ED Attending Note
-
Portions of this chart may have been created with voice recognition software.� Occasional wrong word or��sound alike� substitutions may have occurred due to the inherent limitations of voice recognition software.
Discharge Plan
Departure
Patient Disposition: Home (Routine Discharge)
Date of Disposition: 10/08/25
Time of Disposition: 19:37
Patient with high blood pressure during this ER visit?: No
Condition: Good
Covid-19: Not Applicable
Discharge Problem:
COVID-19
Instructions: COVID-19 in adults (DC), Coronavirus Home Quarantine
Prescriptions:
No Action
alprazolam 1 MG tablet
1 mg PO .Q12H PRN (Reason: anxiety)
Patient Comments:
PATIENT TELEVISION NEWS ANCHOR ON 08/01/21 #45
Xarelto 20 MG tablet
20 mg PO DAILY
ipratropium-albuterol 3 ML solution for nebulization
3 ml inhalation R Q4HPRN PRN (Reason: SOB) Qty: 0 0RF
ascorbic acid (vitamin C) [Vitamin C] 1,000 MG tablet
1,000 mg PO DAILY
estradiol 1 APPLIC cream
1 applic vaginal ./TH
bupropion HCl 150 MG tablet extended release 24 hr
300 mg PO DAILY
oxycodone-acetaminophen [Percocet] 1 EACH tablet
1 tab PO Q6HPRN PRN (Reason: mod-severe pain)
Patient Comments:
PATIENT TELEVISION NEWS ANCHOR ON 08/01/21 #120
metformin 500 MG tablet
500 mg PO BID@0800,1700
Patient Comments:
takes if glucose oveer 120.
fluticasone propion-salmeterol [Advair Diskus] 1 EACH blister with device
1 puff IH R BID
valacyclovir 500 MG tablet
500 mg PO DAILY
Patient Comments:
PATIENT TELEVISION NEWS ANCHOR ON 07/03/21 #90
losartan-hydrochlorothiazide 1 EACH tablet
1 tab PO DAILY
buspirone 10 MG tablet
15 mg PO BID
atorvastatin 10 MG tablet
20 mg PO QPM
albuterol sulfate 1 PUFF HFA aerosol inhaler
2 puff inhalation R Q4HPRN PRN (Reason: SOB)
Nucala 100 MG/ML recon soln
100 mg SC [id number]
famotidine 40 MG tablet
20 mg PO BID
cyclobenzaprine 10 MG tablet
1 tab PO PRN PRN (Reason: muscle pain)
fluticasone propionate 1 SPRAY spray,suspension
1 spray intranasal PRN PRN (Reason: allergies)
acetaminophen [Tylenol] 325 MG capsule
2 cap PO .Q4H PRN (Reason: pain/fever)
ivermectin [Soolantra] 45 GM cream
1 applic topical BID
pimecrolimus [Elidel] 1 APPLIC cream
1 applic topical HS
L.acidoph,paracasei,B.animalis 1 EACH capsule
1 cap PO DAILY
prednisone 10 MG tablet
6 mg PO DAILY
Patient Comments:
ALTERNATES WITH 7MG
guaifenesin [Mucus Relief ER] 600 MG tablet extended release 12hr
1,200 mg PO Q12 PRN (Reason: congestion)
Trintellix 5 mg Tablet
5 mg PO DAILY
Referrals:
Breana Paul DO [Family Provider, Family Practice] - Follow up in 2-3 days
Activity Restrictions/Additional Instructions:
Return to the emergency department immediately for any changes in/worsening of your symptoms.
Interventions
Interventions:
*Risk Screen - Suicide Last Done: 10/08/25 14:14
*General Assessment Last Done: 10/08/25 18:56
*Neglect/Abuse Screening Last Done: 10/08/25 18:56
*ED- Fall Risk Assessment Last Done: 10/08/25 18:56
*ED COVID-19 Vaccine History Last Done: 10/08/25 18:56
*ED Influenza Vaccine History Last Done: 10/08/25 18:56
ED- Pulmonary Assessment Last Done: 10/08/25 18:56
Discharge Date and Time
Print Language: PERSIAN
== END 2025-10-08 19:51 | disposition home or self-care (01) ==
LOC: EMR 14:03
PROVIDERS: Emergency Medicine; Nurse Practitioner; EMERGENCY PHYSICIAN Emergency Medicine; FAMILY PHYSICIAN Family Medicine
DX: U07.1 COVID-19 (principal); E11.9 Type 2 diabetes mellitus without complications; I10 Essential (primary) hypertension; E78.00 Pure hypercholesterolemia, unspecified; J44.89 Other specified chronic obstructive pulmonary disease; D80.3 Selective deficiency of immunoglobulin G [IgG] subclasses; M51.9 Unspecified thoracic, thoracolumbar and lumbosacral intervertebral disc disorder; Z79.84 Long term (current) use of oral hypoglycemic drugs; Z79.01 Long term (current) use of anticoagulants; Z86.711 Personal history of pulmonary embolism
CPT/HCPCS: 99284; 71046; 80053; 85025; 87502; 87811

== ENCOUNTER 2025-10-14 21:50 | Inpatient (IN) | payer MEDICARE, OTHER, SELFPAY ==
[2025-10-14] VITALS (11 sets, daily range): BP systolic 112–160; BP diastolic 72–109; BMI 33.2; BMI 32.6
--- NOTE | 2025-10-14 15:45 | ED.GENMED ---
History of Present Illness
<ALINE Woodall - Last Filed: 10/14/25 21:16>
General
Chief Complaint: Breathing Problem
Source: patient
Exam Limitations: none
Time Seen by Provider: 10/14/25 15:45
Nursing documentation reviewed up to this point in time: agreed with
History of Present Illness
History of Present Illness:
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 Patient was
seen here 6 days ago for fever body aches cough nasal congestion and headache and diagnosed with COVID. Patient reports she has had increased shortness of breath and wheezing. She is typically on 6 mg of steroids alternating with 7 mg every other
day but reports that she increase her steroids to 30 mg both yesterday and the day prior. She did not take any steroids today. She is followed by pulmonology here at [facility]. She does have history of intubation in the past( had COVID in 2020
) patient denies any fevers. .
Past History
<ALINE Woodall - Last Filed: 10/14/25 21:16>
Past History
ED Past Medical History: Asthma, COPD, HTN, Hypercholesterolemia, NIDDM and Other (IgG Immune deficiency, pulmonary emboli, Long QT, hand tremors, Degenerative disc disease)
ED Past Surgical History: Cholecystectomy, Gynecological, Orthopedic and Other (IVC filter placement and removal, Hernia,)
Social History
Tobacco: Non-smoker
Alcohol: None
Drug: None
Personal: Single
Living: with family
Family History
Family History: Negative Diabetes, Hypertension or CAD
Phy Exam
<ALINE Woodall - Last Filed: 10/14/25 21:16>
General Physical Exam
General Presentation: no apparent distress
General age: appears stated age
General Skin: warm and dry
General Habitus: normal
General Mental: alert
General Hydration: appears well hydrated
Cardiovascular Exam
Cardiovascular Exam: regular rate/rhythm, no murmur and normal peripheral pulses
Pulmonary Exam
Pulmonary Exam: no respiratory distress and other (wheezing throughout b/l )
Neurological Exam
Neurological Exam: alert and oriented x3
Musculoskeletal Exam
Musculoskeletal Exam: full ROM
Skin Exam
Skin Exam: normal color and warm/dry
Psychiatric Exam
Psychiatric Exam: normal mood/affect
Scores
<ALINE Woodall - Last Filed: 10/14/25 21:16>
Heart Failure Risk
Heart Failure Risk Score: Not Applicable
Course
<ALINE Woodall - Last Filed: 10/14/25 21:16>
Orders/Labs/Results
Orders:
Orders
10/14/25 Breakfast
Regular
At Your Request: Full Participation
10/14/25 15:17
EKG [Electrocardiogram (*1)] Urgent
Reason for Study: Chest Pain
EKG- Treatment ONCE
10/14/25 15:57
Cardiac Monitoring- Treatment ONCE
IV Insert/Care/Rem.- Treatment PRN
Albuterol Sulfate [Ventolin Nebules] 7.5 mg INH R NOW STA
Dexamethasone Sod Phosphate [Decadron] 10 mg IV NOW STA
Ipratropium Nebs [Atrovent Nebules] 1 mg INH R NOW STA
10/14/25 16:00
Chest [CR Chest - 2 Views ] Urgent
Comment:
Reason For Exam: SOB
10/14/25 16:38
Complete Blood Count/With Diff Urgent
Comprehensive Metabolic Panel Urgent
10/14/25 21:08
Admit/Transfer Patient As Directed
Co-Sign Provider:
Level of Care: Inpatient admission
Assign to:: Telemetry
Physician / Group: Osmany
Diagnosis: Asthma with Acute Exacerbation, COVID-19
Reason for Telemetry: Arrhythmia
Date to Stop Telemetry: 10/17/25
Time to Stop Telemetry: 11:00
Reason for Hospitalization: Asthma with Acute Exacerbation, COVID-19
Expected length of stay greater than two midnights?: Yes
ELOS- Estimated Length of Stay in days: 3
I certify the patient meets the requirements for IP care: Yes
10/14/25 21:09
PRN Pain Medication Management As Directed
May give lesser potent ordered pain med per pt: Yes
preference::
Protocol:: Medication orders for pain may be administered in a
manner that supports deferring to patient preference
when the pt is:
- Requesting an ordered lesser potent pain medication.
Least to most potent pain medications are defined
as: acetaminophen < NSAID < tramadol < opioids
(morphine, oxycodone, hydromorphone).
- Requesting a lesser dose of the same medication IF
ORDERED.
- Requesting a less intrusive route of administration
if both routes are prescribed by the provider (PO <
IV).
10/14/25 21:12
Code Status As Directed
Resuscitation Status: Full Code
10/14/25 21:29
ABG [Arterial Blood Gas] Routine
%Oxygen/Room Air: Hypoxemia / Resp Failure
10/14/25 23:15
Acetaminophen [Tylenol] 650 mg PO Q4HPRN PRN
Albuterol [ProAIR HFA INHALER] 2 puff INH R Q4HPRN PRN SOB
Alprazolam [Xanax] 1 mg PO [id number] PRN anxiety
Dextrose 50%-Water [Dextrose 50% Syringe] 12.5 grams IV [id number] PRN
Doxycycline [Vibramycin] 100 mg PO Q12
Glucagon [GlucaGen] 1 mg IM PRN PRN
Guaifenesin [Mucinex] 1,200 mg PO Q12 PRN congestion
oxycodone-acetaminophen [Percocet] 1 tablet PO Q6HPRN PRN
10/14/25 23:15
PULMONARY CONSULT Routine
Consulting Provider: Manny Longoria
Was physician already notified: Yes
Reason for consult: Asthma with Acute Exacerbation, COVID-19
Activity As Directed
Activity Level: Ambulate
With Assistance
Bedside Glucose Monitoring As Directed
Frequency: AC&HS
Additional Instructions:: Change to q6h if pt on TPN, tube feeding or not eating
EKG with chest pain [ECG as needed] As Directed
ECG as needed for:: Chest Pain
I/O [Intake/ Output] As Directed
Frequency: Per unit guidelines
Precautions As Directed
Type of Precautions: Droplet
Vital Signs As Directed
Frequency: Per unit guidelines
Weight As Directed
Frequency: Daily
Oxygen Therapy [O2 Therapy] [RESP] Routine
Titrate/Wean O2 to maintain O2 sat greater than (%): 94
10/15/25 00:00
CefTRIAXone [Rocephin] 1,000 mg IV Q24H
Dexamethasone Sod Phosphate [Decadron] 4 mg IV Q8H
10/15/25 06:15
Basic Metabolic Panel IN AM
Complete Blood Count/No Diff IN AM
Glycohemoglobin (HgbA1c) IN AM
10/15/25 07:30
Insulin Aspart Corrective Low [Novolog Flexpen-Low Resistance] See Protocol SC AC
10/15/25 08:00
Bupropion(24Hr)Extended Releas [WELLBUTRIN XL (24 hour extended release)] 150 mg PO DAILY
Buspirone [Buspar] 15 mg PO TID
Famotidine [Pepcid] 20 mg PO BID
Fluticasone/Salmeterol 115/21 [Advair Hfa 115/21 Mcg Inhaler] 2 puff INH R BID
Rivaroxaban [Xarelto] 20 mg PO DAILY
Valacyclovir HCl [Valtrex] 500 mg PO DAILY
vortioxetine [Trintellix] See Dose Instructions PO DAILY
10/15/25 18:00
Atorvastatin [Lipitor] 20 mg PO QPM
10/17/25 11:00
DC Protocol for Telemetry ONCE
Abnormal Lab Results
10/14/25 10/14/25
16:38 21:29
RBC 3.95 L 10^6/uL
(4.20-5.40)
Hct 34.7 L %
(37.0-47.0)
MPV 10.5 H fL
(7.4-10.4)
Abs Immat Gran (auto) 0.1 H 10^3/uL
(0-0.05)
Absolute Lymphs (auto) 1.1 L 10^3/uL
(1.2-3.4)
Immature Gran % 0.8 H %
(0-0.5)
Neutrophils % 78.6 H %
(42.2-75.2)
Lymphocytes % 15.1 L %
(20.5-51.1)
ABG O2 Sat (Measured) 98.5 H %
(94-98)
Glucose 141 H mg/dl
(70-99)
10/14/25 16:38
10/14/25 16:38
Vital Signs
Initial and Last Documented VS:
Initial Vital Signs
Temp Pulse Resp BP Pulse Ox
97.3 F 91 16 157/99 99
10/14/25 15:14 10/14/25 15:14 10/14/25 15:14 10/14/25 15:14 10/14/25 15:14
Last Documented Vital Signs
Temp Pulse Resp BP Pulse Ox
97.7 F 85 18 135/84 93
10/18/25 08:07 10/18/25 08:07 10/18/25 08:07 10/18/25 09:35 10/18/25 08:07
Property Developer consulted with Physician
Property Developer consulted with physician?: Yes
Name of Physician Consulted: Sterling
<Jose Daniel Katz MD - Last Filed: 10/14/25 20:26>
Orders/Labs/Results
Orders:
Orders
10/14/25 Breakfast
Regular
At Your Request: Full Participation
10/14/25 15:17
EKG [Electrocardiogram (*1)] Urgent
Reason for Study: Chest Pain
EKG- Treatment ONCE
10/14/25 15:57
Cardiac Monitoring- Treatment ONCE
IV Insert/Care/Rem.- Treatment PRN
Albuterol Sulfate [Ventolin Nebules] 7.5 mg INH R NOW STA
Dexamethasone Sod Phosphate [Decadron] 10 mg IV NOW STA
Ipratropium Nebs [Atrovent Nebules] 1 mg INH R NOW STA
10/14/25 16:00
Chest [CR Chest - 2 Views ] Urgent
Comment:
Reason For Exam: SOB
10/14/25 16:38
Complete Blood Count/With Diff Urgent
Comprehensive Metabolic Panel Urgent
10/14/25 21:08
Admit/Transfer Patient As Directed
Co-Sign Provider:
Level of Care: Inpatient admission
Assign to:: Telemetry
Physician / Group: Osmany
Diagnosis: Asthma with Acute Exacerbation, COVID-19
Reason for Telemetry: Arrhythmia
Date to Stop Telemetry: 10/17/25
Time to Stop Telemetry: 11:00
Reason for Hospitalization: Asthma with Acute Exacerbation, COVID-19
Expected length of stay greater than two midnights?: Yes
ELOS- Estimated Length of Stay in days: 3
I certify the patient meets the requirements for IP care: Yes
10/14/25 21:09
PRN Pain Medication Management As Directed
May give lesser potent ordered pain med per pt: Yes
preference::
Protocol:: Medication orders for pain may be administered in a
manner that supports deferring to patient preference
when the pt is:
- Requesting an ordered lesser potent pain medication.
Least to most potent pain medications are defined
as: acetaminophen < NSAID < tramadol < opioids
(morphine, oxycodone, hydromorphone).
- Requesting a lesser dose of the same medication IF
ORDERED.
- Requesting a less intrusive route of administration
if both routes are prescribed by the provider (PO <
IV).
10/14/25 21:12
Code Status As Directed
Resuscitation Status: Full Code
10/14/25 21:29
ABG [Arterial Blood Gas] Routine
%Oxygen/Room Air: Hypoxemia / Resp Failure
10/14/25 23:15
Acetaminophen [Tylenol] 650 mg PO Q4HPRN PRN
Albuterol [ProAIR HFA INHALER] 2 puff INH R Q4HPRN PRN SOB
Alprazolam [Xanax] 1 mg PO [id number] PRN anxiety
Dextrose 50%-Water [Dextrose 50% Syringe] 12.5 grams IV [id number] PRN
Doxycycline [Vibramycin] 100 mg PO Q12
Glucagon [GlucaGen] 1 mg IM PRN PRN
Guaifenesin [Mucinex] 1,200 mg PO Q12 PRN congestion
oxycodone-acetaminophen [Percocet] 1 tablet PO Q6HPRN PRN
10/14/25 23:15
PULMONARY CONSULT Routine
Consulting Provider: Manny Longoria
Was physician already notified: Yes
Reason for consult: Asthma with Acute Exacerbation, COVID-19
Activity As Directed
Activity Level: Ambulate
With Assistance
Bedside Glucose Monitoring As Directed
Frequency: AC&HS
Additional Instructions:: Change to q6h if pt on TPN, tube feeding or not eating
EKG with chest pain [ECG as needed] As Directed
ECG as needed for:: Chest Pain
I/O [Intake/ Output] As Directed
Frequency: Per unit guidelines
Precautions As Directed
Type of Precautions: Droplet
Vital Signs As Directed
Frequency: Per unit guidelines
Weight As Directed
Frequency: Daily
Oxygen Therapy [O2 Therapy] [RESP] Routine
Titrate/Wean O2 to maintain O2 sat greater than (%): 94
10/15/25 00:00
CefTRIAXone [Rocephin] 1,000 mg IV Q24H
Dexamethasone Sod Phosphate [Decadron] 4 mg IV Q8H
10/15/25 06:15
Basic Metabolic Panel IN AM
Complete Blood Count/No Diff IN AM
Glycohemoglobin (HgbA1c) IN AM
10/15/25 07:30
Insulin Aspart Corrective Low [Novolog Flexpen-Low Resistance] See Protocol SC AC
10/15/25 08:00
Bupropion(24Hr)Extended Releas [WELLBUTRIN XL (24 hour extended release)] 150 mg PO DAILY
Buspirone [Buspar] 15 mg PO TID
Famotidine [Pepcid] 20 mg PO BID
Fluticasone/Salmeterol 115/21 [Advair Hfa 115/21 Mcg Inhaler] 2 puff INH R BID
Rivaroxaban [Xarelto] 20 mg PO DAILY
Valacyclovir HCl [Valtrex] 500 mg PO DAILY
vortioxetine [Trintellix] See Dose Instructions PO DAILY
10/15/25 18:00
Atorvastatin [Lipitor] 20 mg PO QPM
10/17/25 11:00
DC Protocol for Telemetry ONCE
Abnormal Lab Results
10/14/25 10/14/25
16:38 21:29
RBC 3.95 L 10^6/uL
(4.20-5.40)
Hct 34.7 L %
(37.0-47.0)
MPV 10.5 H fL
(7.4-10.4)
Abs Immat Gran (auto) 0.1 H 10^3/uL
(0-0.05)
Absolute Lymphs (auto) 1.1 L 10^3/uL
(1.2-3.4)
Immature Gran % 0.8 H %
(0-0.5)
Neutrophils % 78.6 H %
(42.2-75.2)
Lymphocytes % 15.1 L %
(20.5-51.1)
ABG O2 Sat (Measured) 98.5 H %
(94-98)
Glucose 141 H mg/dl
(70-99)
10/14/25 16:38
10/14/25 16:38
Vital Signs
Initial and Last Documented VS:
Initial Vital Signs
Temp Pulse Resp BP Pulse Ox
97.3 F 91 16 157/99 99
10/14/25 15:14 10/14/25 15:14 10/14/25 15:14 10/14/25 15:14 10/14/25 15:14
Last Documented Vital Signs
Temp Pulse Resp BP Pulse Ox
97.7 F 85 18 135/84 93
10/18/25 08:07 10/18/25 08:07 10/18/25 08:07 10/18/25 09:35 10/18/25 08:07
<ALINE Woodall - Last Filed: 10/14/25 21:16>
MDM/Problems Addressed
Differential Diagnosis Includes:
Not limited to COPD exacerbation caused from COVID/viral syndrome, pneumonia
MDM/Problems Addressed:
As documented patient is a 65-year-old female with COPD presents for wheezing shortness of breath. Patient was seen here several days ago diagnosed with COVID however complains of persistent cough. She does have inhalers at home. She presents
with scattered wheezing however not hypoxic. Patient is afebrile with normal white count. Patient was given an hour-long neb here and Decadron. Though she is in no acute distress she has continued scattered wheezing and still complains of
shortness of breath. Will require admission especially with history of intubated in the past with history of COPD and asthma. Case discussed ED physician evaluated patient.
Chronic conditions affecting care:
Asthma COPD
<ALINE Woodall - Last Filed: 10/14/25 21:16>
*Radiology
Radiology exam reviewed: preliminary read by ED provider (madeline )
*Pulse Oximetry
SaO2: 99
Oxygen Mode of Delivery: Room air
Patient hypoxic: no
*Critical Care Note
Total Time (30-74mins, 75-104mins- exclusive of procedures): Not Applicable
ED Attending Note
<ALINE Woodall - Last Filed: 10/14/25 21:16>
-
Portions of this chart may have been created with voice recognition software.� Occasional wrong word or��sound alike� substitutions may have occurred due to the inherent limitations of voice recognition software.
<Jose Daniel Katz MD - Last Filed: 10/14/25 20:26>
ED Attending Note
Patient seen and examined by attending physician: Yes
ED Attending Note:
I have seen and evaluated the patient with a [id number] encounter. I have spoken to the advance practicer provider and involved in the medical history, the physical exam, medical decision making.
Evaluation and management service: agree unless noted differently below.
Results interpretation: agree unless noted differently below.
Focused HPI: 65-year-old female with history as noted significant for COPD, PE on Xarelto who presents to the ER for evaluation of cough and shortness of breath in the setting of recent COVID infection. Patient says that she started feeling malaise
last was having some congestion and mild cough. Over the weekend started having increasing shortness of breath and wheezing, worsening cough. Last night could not catch her breath. Came to the ER for evaluation.
Physical exam: Awake and alert not in distress. She is tachypneic but not hypoxic. Mild hypertension, heart rate acceptable. She has diffuse bilateral wheezing with prolonged expiration and frequent hacking cough. No edema in the legs. No
cardiac rubs gallops or murmurs appreciated.
Medical Decision Makin-year-old female presents for evaluation of worsening cough and shortness of breath, wheezing in the setting of recent COVID infection. Vitals and exam as above. X-ray no pneumonia. Labs unremarkable. She received IV
steroids and nebs here with only marginal improvement�will need admission for continued treatment of COPD exacerbation likely triggered by viral illness.
Discharge Plan
Departure
Patient Disposition: Admit
Date of Disposition: 10/14/25
Time of Disposition: 20:40
Admit to doctor: Gian
Presentation/result/management discussed w/ accepting MD/DO: Hospitalist
Patient with high blood pressure during this ER visit?: Yes
Discharge Problem:
COPD exacerbation, COVID-19
Interventions
Interventions:
*Risk Screen - Suicide Last Done: 10/14/25 15:14
*General Assessment Last Done: 10/14/25 16:41
*Neglect/Abuse Screening Last Done: 10/14/25 15:14
*ED- Fall Risk Assessment Last Done: 10/14/25 16:41
*ED COVID-19 Vaccine History Last Done: 10/14/25 16:41
*ED Influenza Vaccine History Last Done: 10/14/25 16:41
*Nursing Disposition Last Done: 10/14/25 23:11
ED- Cardiac Assessment Last Done: 10/14/25 16:41
ED- Pulmonary Assessment Last Done: 10/14/25 16:41
Discharge Date and Time
Discharge Date/Time: 10/14/25 23:11
[2025-10-14] MEDS: ATROVENT NEBULES 1 MG INH (16:20)
[2025-10-14] MEDS: VENTOLIN NEBULES 7.5 MG INH (16:20)
[2025-10-14] MEDS: DECADRON 10 MG IV (16:37)
[2025-10-14 16:52] LABS: Hematocrit 34.7 % (37.0-47.0); Hemoglobin 12.1 g/dL (12.0-16.0); Mean Corp Hgb Conc. 34.9 g/dL (33.0-37.0); Mean Corpuscular Volume 87.8 fL (81.0-99.0); Nucleated Red Blood Cells % 0 %; Platelet Count 211 10^3/uL (130-400); Red Cell Dist. Width 13.3 % (11.5-14.5)
[2025-10-14 17:09] LABS: ALT (SGPT) 22 U/L (0-35); AST (SGOT) 26 U/L (14-36); Albumin 4.1 g/dl (3.5-5.0); Alkaline Phosphatase 111 U/L (38-126); Blood Urea Nitrogen 10 mg/dl (7-17); Calcium 9.8 mg/dl (8.4-10.2); Carbon Dioxide 27 mmol/L (22-30); Chloride 101 mmol/L (98-107); Estimated Creatinine Clearance 70 ml/min; Glucose 141 mg/dl (70-99); Potassium 4.3 mmol/L (3.5-5.1); Sodium 135 mmol/L (135-145); Total Protein 7.5 g/dl (6.3-8.2); eGFR > 60.00
--- NOTE | 2025-10-14 21:18 | HPS.HSE ---
Family Physician
-
Family Physician: Breana Paul
Chief Complaint
-
Cough, Wheeze, SOB
History of Present Illness
Patient is a 65y F with PMH significant for severe persistent asthma, immunoglobulin deficiency, long QT and prior VTE who presents to ED complaining of cough, wheezing and shortness of breath. Patient notes that she started with headache, sinus
congestion and sore throat about 1 week ago. She was seen in the ED here on 10/08 and diagnosed with COVID-19 at that time. Patient was not hypoxemic and had no cough, etc at that time. She states that she went home and increased her nebs to 4
times daily and increased her usual prednisone (6-7mg daily) to 30mg daily. Her symptoms did not significantly improve. About 2 days ago she began to develop cough and wheezing. Her symptoms have become progressively more severe and she presented
to the ED for further evaluation.
Patient is followed by Dr. Menjivar of the pulmonary group.
She has monthly IVIG infusions (last was ) and monthly Nucala injections.
Patient had her last SARS-CoV-2 vaccination 09/2022.
In the ED, patient has conversational dyspnea and audible wheezing. She is saturating well at rest, but has significant desaturations (70s-80s) with activity / ambulation.
Medical History
Past Medical History
Past Medical History: Reports Other
Additional Past Medical History:
IgG Deficiency
Severe Persistent Asthma
Chronic Steroid Dependence
History of DVT / PE
Hypertension
DM-II
Prolonged QT Syndrome
Breast Cancer
h/o Respiratory Failure / VDRF
Anxiety / Depression
Past Surgical History: Reports Other
Additional Past Surgical History:
Bilateral Mastectomies
Bilateral Breast Reconstruction
Left Breast Implant Removal
Cholecystectomy
Cervical Fusion
Bilateral TSA
Bilateral TKA
T&A
IVC Filter
Social History
Tobacco: Former Smoker (Quit smoking > 10 years ago.)
Alcohol: None
Drug: None
Family History
Family History: Not pertinent
Allergies / Home Medications
Allergies reflects when Allergies were last updated in [facility].
Home Medications with original date entered in [facility]
Allergy/Medication List:
Allergies
Allergy/AdvReac Type Severity Reaction Status Date / Time
levofloxacin (From Levaquin) Allergy Intermediate Swelling Verified 10/14/25 15:14
bee pollen Allergy Unknown-STI Verified 10/14/25 15:14
NGS
latex Allergy Itching Verified 10/14/25 15:14
methylprednisolone Allergy Swelling Verified 10/14/25 15:18
mirabegron Allergy Unknown Verified 10/14/25 15:14
prolonged QT syndrome Allergy Unknown Uncoded 10/14/25 15:14
Home Medications
alprazolam 1 mg tablet 1 mg PO .Q12H PRN anxiety 01/31/15
rivaroxaban 20 mg tablet (Xarelto) 20 mg PO DAILY Blood clot prevention/tx 01/31/15
ipratropium 0.5 mg-albuterol 3 mg (2.5 mg base)/3 mL nebulization soln 3 ml inhalation R Q4HPRN PRN SOB ##0 08/24/15
ascorbic acid (vitamin C) 1,000 mg tablet (Vitamin C) 1,000 mg PO DAILY Supplement 10/09/16
estradiol 0.01% (0.1 mg/gram) vaginal cream 1 applic vaginal .QM/TH Hormonal agent 10/09/16
bupropion HCl 150 mg 24 hr tablet, extended release 300 mg PO DAILY Mental Health/Anxiety 12/26/17
fluticasone 250 mcg-salmeterol 50 mcg/dose blistr powdr for inhalation (Advair Diskus) 1 puff IH R BID Lung/breathing issues 01/20/18
metformin 500 mg tablet 500 mg PO BID@0800,1700 Diabetes 01/20/18
oxycodone-acetaminophen 10 mg-325 mg tablet (Percocet) 1 tab PO Q6HPRN PRN mod-severe pain 01/20/18
valacyclovir 500 mg tablet 500 mg PO DAILY Infection 01/20/18
losartan 100 mg-hydrochlorothiazide 12.5 mg tablet 1 tab PO DAILY Blood pressure 07/24/18
buspirone 10 mg tablet 15 mg PO BID Mental Health/Anxiety 08/13/18
albuterol sulfate 90 mcg/actuation aerosol inhaler 2 puff inhalation R Q4HPRN PRN SOB 08/07/21
atorvastatin 10 mg tablet 20 mg PO QPM High cholesterol 08/07/21
mepolizumab 100 mg subcutaneous solution (Nucala) 100 mg SC .[id number] Lung/breathing issues 08/07/21
famotidine 40 mg tablet 20 mg PO BID Gastrointestinal issue 08/10/21
L.acidoph,paracasei,B.animalis 10 billion cell capsule 1 cap PO DAILY 08/31/21
acetaminophen 325 mg capsule (Tylenol) 2 cap PO .Q4H PRN pain/fever 08/31/21
cyclobenzaprine 10 mg tablet 1 tab PO PRN PRN muscle pain 08/31/21
fluticasone propionate 50 mcg/actuation nasal spray,suspension 1 spray intranasal PRN PRN allergies 08/31/21
ivermectin 1 % topical cream (Soolantra) 1 applic topical BID 08/31/21
pimecrolimus 1 % topical cream (Elidel) 1 applic topical HS 08/31/21
prednisone 10 mg tablet 6 mg PO DAILY 08/31/21
guaifenesin 600 mg tablet, extended release 12 hr (Mucus Relief ER) 1,200 mg PO Q12 PRN congestion 12/05/23
vortioxetine 5 mg tablet (Trintellix) 5 mg PO DAILY 01/02/24
Review of Systems
-
History Source: Patient
A 12 point ROS was completed and negative except as noted: Yes
Constitutional: Reports Fatigue; Denies Fever or Chills
EENT: Denies Sore Throat
Respiratory: Reports Cough and Trouble Breathing; Denies Hemoptysis
Cardiac: Denies Chest Pain or Palpitations
Abdomen/GI: Denies Abdominal Pain, Nausea, Vomiting or Diarrhea
: Denies Dysuria or Frequency
Musculoskeletal: Denies Joint Pain or Edema
Neurological: Denies Dizzy or Headache
Psych: Denies Depression or Anxiety
Physical Exam
Vital Signs
Vital Signs
Temp Pulse Resp BP Pulse Ox
97.3 F 93 26 141/78 97
10/14/25 15:14 10/14/25 19:45 10/14/25 19:45 10/14/25 19:00 10/14/25 19:45
Physical Exam
General: Other (65y F in mild distress secondary to dyspnea. Increased WOB and conversational dyspnea.)
HEENT: Moist mucous membranes and PERRLA
Respiratory: Other (Diffuse wheezing. No focal rhonchi.)
Cardiac: S1/S2 and Tachycardia; No Murmur
GI: Soft, Non Tender, Non Distended and Normal Bowel Sounds
Musculoskeletal: No Clubbing, No Cyanosis and No Edema
Neuro: AO x 3
Laboratory Results
-
10/14/25 16:38
10/14/25 16:38
Laboratory Results
Total Bilirubin 0.8 mg/dl (0.2-1.3) 10/14/25 16:38
AST 26 U/L (14-36) 10/14/25 16:38
ALT 22 U/L (0-35) 10/14/25 16:38
Alkaline Phosphatase 111 U/L (38-126) 10/14/25 16:38
Impression/Plan
-
A/P: Patient is a 65y F with PMH significant for severe asthma, chronic steroid dependence and IgG deficiency who presents to ED complainig of cough and SOB.
Severe Persistent Asthma with Acute Exacerbation
COVID-19 Infection
IgG Deficiency
Chronic Steroid Dependence
- Admit for further evaluation and treatment.
- COVID positive on 10/08. Not up to date with vaccinations.
- Continue IV steroids, O2 support, albuterol MDI PRN.
- Will cover with abx for now given secondary change in symptoms in the past few days, immunocompromised state, etc.
- Follow temp curve, symptoms, etc.
- Follow proper precautions for now as patient remains symptomatic.
- Pulmonary evaluation for additional recommendations.
- Continue prophylactic valacyclovir.
Benign Hypertension
- Stable. Needs formal med rec as patient does not have current list with her.
DM-II
- Hold PO meds acutely.
- Follow glucose and cover with SSI as needed - especially while on IV steroids.
- Update A1C.
Anxiety / Depression
- Confirm / continue usual meds in the AM.
- Continue alprazolam PRN (confirmed via PDMP).
Chronic Pain Syndrome
- Continue Percocet PRN pain.
- Rx confirmed via PDMP.
History of DVT
DVT Prophylaxis
- Continue Xarelto
Code Status: Full
[2025-10-14 21:38] LABS: B.E. -2.3 mmol/L; HCO3 21.2 mmol/L (21-28); O2 Saturation % 98.5 % (94-98); PCO2 32 mmHg (32-35); PO2 87 mmHg (83-108)
[2025-10-14 23:22] LABS: Glucose - Point of Care 164 mg/dl (70-99)
[2025-10-14] MEDS: ROCEPHIN 1000 MG IV (23:29)
[2025-10-14] MEDS: VIBRAMYCIN 100 MG PO (23:29)
[2025-10-14] MEDS: DECADRON 4 MG IV (23:30)
[2025-10-14] MEDS: STERILE WATER FOR INJECTION 10 ML IV (23:37)
[2025-10-15] VITALS (8 sets, daily range): BP systolic 109–146; BP diastolic 65–99; BMI 32.5
[2025-10-15] MEDS: XANAX 1 MG PO ×2 (00:10→20:52)
[2025-10-15] MEDS: AMBIEN 5 MG PO ×2 (00:10→22:42)
[2025-10-15] MEDS: PHENERGAN SYRUP 12.5 MG PO (01:47)
[2025-10-15 07:08] LABS: Hematocrit 32.4 % (37.0-47.0); Hemoglobin 11.2 g/dL (12.0-16.0); Mean Corp Hgb Conc. 34.6 g/dL (33.0-37.0); Mean Corpuscular Volume 87.6 fL (81.0-99.0); Platelet Count 198 10^3/uL (130-400); Red Cell Dist. Width 13.2 % (11.5-14.5)
--- NOTE | 2025-10-15 07:18 | W.PN.HOSP.TC ---
Today's Communication/Plan
-
Continue steroids, antibiotics, continue to monitor on telemetry
See plan
Assessment / Plan
Assessment / Plan
Physical Exam
General: Not in acute distress
HEENT: Moist mucous membranes
Respiratory: Decreased breath sounds, some wheezing bilaterally
Cardiac: S1/S2 and RRR
GI: Soft, Non Tender, Non Distended and Normal Bowel Sounds
Musculoskeletal: No Cyanosis and No Edema
Neuro: AAO x 3
Assessment/Plan
65y F with H significant for severe persistent asthma (followed outpatient by Dr. Menjivar), immunoglobulin deficiency, long QT and prior VTE who presented to [facility] ED complaining of cough, wheezing and shortness of breath. Patient notes that she
started with headache, sinus congestion and sore throat around 10/07/25-10/08/25. She was seen in the ED here on 10/08/25 and diagnosed with COVID-19 at that time. Patient was not hypoxemic and had no cough, etc at that time. She stated that she
went home and increased her nebs to 4 times daily and increased her usual prednisone (6-7mg daily) to 30mg daily. Her symptoms did not significantly improve. About 2 days prior to presentation, she began to develop cough and wheezing. Her symptoms
have become progressively more severe and she presented to the emergency room for further evaluation.
Severe Persistent Asthma (on outpatient Nucala) with Acute Exacerbation
COVID-19 Infection
History respiratory failure/ventilator dependence when had COVID years ago
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
Chronic Steroid Dependence
Immunocompromised State
- COVID positive on 10/08. Not up to date with vaccinations.
- Continue IV steroids, O2 support, albuterol MDI PRN.
- Continue abx for now given secondary change in symptoms in the past few days, immunocompromised state, etc.
- Follow temp curve, symptoms, etc.
- Follow proper precautions for now as patient remains symptomatic.
- Pulmonary evaluation for additional recommendations.
- Continue prophylactic valacyclovir.
Prolonged QT syndrome
- Avoid QTc prolonging medications
Benign Hypertension
- Stable.
DM-II
- Hold PO meds acutely.
- Follow glucose and cover with SSI as needed - especially while on IV steroids.
- A1C 5.0%
History of lung nodules
Urticaria
Atopy
Chronic sinusitis
History of Breast cancer status post bilateral mastectomy/reconstruction.
GERD
Cholecystectomy
Cervical fusion
Bilateral total knee replacement
Tonsillectomy.
Right shoulder replacement.
Bunionectomy.
Anxiety / Depression
- Confirm / continue usual meds in the AM.
- Continue alprazolam PRN (confirmed via PDMP).
Chronic Pain Syndrome
- Continue Percocet PRN pain.
- Rx confirmed via PDMP.
Resting Tremor
History of DVT/PE -- IVC filter-removed 2019.
-Continue Xarelto
DVT Prophylaxis: Xarelto
Code Status: Full
Anticipated Discharge: > 48 hours
Subjective/Interval History
-
Date of Service: October 15, 2025
Patient was seen and examined. She reported still feeling shortness of breath, no new symptoms, somewhat better compared to when she came in.
Objective Data
-
Labs:
Laboratory Results
10/14/25 10/15/25
21:29 06:15
WBC 6.6
Hgb 11.2 L
Hct 32.4 L
Plt Count 198
HCO3 21.2
Sodium Pending
Potassium Pending
Chloride Pending
Carbon Dioxide Pending
BUN Pending
Creatinine Pending
Glucose Pending
Calcium Pending
Vital Signs:
Vital Signs
Temp Pulse Resp BP Pulse Ox
98.5 F 90 16 109/65 96
10/15/25 03:07 10/15/25 03:07 10/15/25 03:07 10/15/25 03:07 10/15/25 03:07
I&O
10/14/25 10/15/25 10/16/25
06:59 06:59 06:59
Intake Total 720 / 720
Balance 720 / 720
[2025-10-15] MEDS: ADVAIR HFA 115/21 MCG INHALER 2 PUFF INH ×2 (07:40→19:42)
[2025-10-15 07:52] LABS: Blood Urea Nitrogen 9 mg/dl (7-17); Calcium 9.2 mg/dl (8.4-10.2); Carbon Dioxide 27 mmol/L (22-30); Chloride 100 mmol/L (98-107); Estimated Creatinine Clearance 70 ml/min; Glucose 214 mg/dl (70-99); Potassium 4.4 mmol/L (3.5-5.1); Sodium 132 mmol/L (135-145); eGFR > 60.00
[2025-10-15 08:26] LABS: Glycohemoglobin (HgbA1c) 5.0 % (4.0-5.9)
[2025-10-15] MEDS: BUSPAR 15 MG PO ×3 (08:59→22:38)
[2025-10-15] MEDS: VIBRAMYCIN 100 MG PO ×2 (08:59→20:29)
[2025-10-15] MEDS: PEPCID 20 MG PO ×2 (08:59→20:29)
[2025-10-15] MEDS: XARELTO 20 MG PO (08:59)
[2025-10-15] MEDS: WELLBUTRIN XL (24 hour extended release) 150 MG PO (09:00)
[2025-10-15] MEDS: VALTREX 500 MG PO (09:00)
[2025-10-15] MEDS: DECADRON 4 MG IV ×2 (09:00→16:54)
[2025-10-15 09:04] LABS: Glucose - Point of Care 171 mg/dl (70-99)
--- NOTE | 2025-10-15 09:17 | CON.PUL ---
Consultation
Consultation Request
Date/Time Consultation Requested: 10/15/2025-7:30 AM
Date/Time Consultation Performed: 10/15/2025-8 AM
Requesting Provider: Hospitalist
Performing Provider: Dr. Guidry
Reason for Consultation: Shortness of breath/asthma exacerbation
Medical History
-
Chief Complaint: Shortness of breath and wheezing
History of Present Illness:
65-year-old former smoking female with history of severe persistent asthma on immunoglobulin replacement therapy as well as IL-5 inhibitor, long QT, DVT and pulm embolism, hypertension, diabetes and breast cancer presented with covid infection 1
week ago and had increasing wheezing, cough, shortness of breath presented to the emergency room with an asthma exacerbation-pulmonary consulted for asthma exacerbation/ covid infection 10/15/2025. The patient feels much improved since she came.
She got a dose of Decadron which she feels like this helped her significantly. She continues to have some wheezing, some mild chest tightness but no productive cough or chest congestion. She denies any abdominal pain, nausea, leg swelling or focal
weakness.
Past Medical History
Past Medical History: None (Asthma-severe persistent on IL-5 inhibitor. History respiratory failure/ventilator dependence. Prolonged QT syndrome. 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 Chronic steroid dependence. History of DVT/PE.
Hypertension. Diabetes. Breast cancer. Anxiety/depression.) and Hypothyroidism
Past Surgical History: None (Bilateral mastectomy/reconstruction. Cholecystectomy. Cervical fusion. Bilateral total knee replacement. Tonsillectomy. IVC filter.)
Social History
Tobacco: Former Smoker (Quit years ago greater than 10)
Alcohol: None
Drug: None
Living: With Family
Occupational Exposures: No known asbestos exposure
Environmental Exposures: No known tuberculosis exposure
Family History
Family History: Reviewed & Not Pertinent
Allergies / Home Medications
Allergies
Allergy/AdvReac Type Severity Reaction Status Date / Time
levofloxacin (From Levaquin) Allergy Intermediate Swelling Verified 10/14/25 15:14
bee pollen Allergy Unknown-STI Verified 10/14/25 15:14
NGS
latex Allergy Itching Verified 10/14/25 15:14
methylprednisolone Allergy Swelling Verified 10/14/25 15:18
mirabegron Allergy Unknown Verified 10/14/25 15:14
prolonged QT syndrome Allergy Unknown Uncoded 10/14/25 15:14
Home Medications
�Medication �Instructions �Recorded �Confirmed �Last Taken �Type
alprazolam 1 mg tablet 1 mg PO .Q12H PRN anxiety 01/31/15 10/07/25 10/06/25 History
rivaroxaban 20 mg tablet (Xarelto) 20 mg PO DAILY Blood clot 01/31/15 09/21/25 10/07/25 History
prevention/tx
ipratropium 0.5 mg-albuterol 3 mg 3 ml inhalation R Q4HPRN PRN SOB 08/24/15 10/07/25 10/06/25 Rx
(2.5 mg base)/3 mL nebulization ##0
soln
ascorbic acid (vitamin C) 1,000 mg 1,000 mg PO DAILY Supplement 10/09/16 10/07/25 10/06/25 History
tablet (Vitamin C)
estradiol 0.01% (0.1 mg/gram) 1 applic vaginal .QM/TH Hormonal 10/09/16 10/07/25 10/06/25 History
vaginal cream agent
bupropion HCl 150 mg 24 hr tablet, 300 mg PO DAILY Mental 12/26/17 10/07/25 10/07/25 History
extended release Health/Anxiety
fluticasone 250 mcg-salmeterol 50 1 puff IH R BID Lung/breathing 01/20/18 10/07/25 10/06/25 History
mcg/dose blistr powdr for issues
inhalation (Advair Diskus)
metformin 500 mg tablet 500 mg PO BID@0800,1700 Diabetes 01/20/18 10/07/25 10/07/25 History
oxycodone-acetaminophen 10 mg-325 1 tab PO Q6HPRN PRN mod-severe pain 01/20/18 10/07/25 10/06/25 History
mg tablet (Percocet)
valacyclovir 500 mg tablet 500 mg PO DAILY Infection 01/20/18 10/07/25 10/06/25 History
losartan 100 1 tab PO DAILY Blood pressure 07/24/18 10/07/25 10/07/25 History
mg-hydrochlorothiazide 12.5 mg
tablet
buspirone 10 mg tablet 15 mg PO BID Mental Health/Anxiety 08/13/18 10/07/25 10/07/25 History
albuterol sulfate 90 mcg/actuation 2 puff inhalation R Q4HPRN PRN SOB 08/07/21 10/07/25 10/06/25 History
aerosol inhaler
atorvastatin 10 mg tablet 20 mg PO QPM High cholesterol 08/07/21 10/07/25 10/06/25 History
mepolizumab 100 mg subcutaneous 100 mg SC .[id number] Lung/breathing 08/07/21 10/07/25 09/21/25 History
solution (Nucala) issues
famotidine 40 mg tablet 20 mg PO BID Gastrointestinal issue 08/10/21 10/07/25 10/07/25 History
L.acidoph,paracasei,B.animalis 10 1 cap PO DAILY 08/31/21 10/07/25 10/06/25 History
billion cell capsule
acetaminophen 325 mg capsule 2 cap PO .Q4H PRN pain/fever 08/31/21 10/07/25 10/07/25 History
(Tylenol)
cyclobenzaprine 10 mg tablet 1 tab PO PRN PRN muscle pain 08/31/21 10/07/25 10/06/25 History
fluticasone propionate 50 1 spray intranasal PRN PRN 08/31/21 10/07/25 07/15/25 History
mcg/actuation nasal allergies
spray,suspension
ivermectin 1 % topical cream 1 applic topical BID 08/31/21 10/07/25 10/06/25 History
(Soolantra)
pimecrolimus 1 % topical cream 1 applic topical HS 08/31/21 10/07/25 10/06/25 History
(Elidel)
prednisone 10 mg tablet 6 mg PO DAILY 08/31/21 10/07/25 10/06/25 History
guaifenesin 600 mg tablet, 1,200 mg PO Q12 PRN congestion 12/05/23 10/07/25 07/15/25 History
extended release 12 hr (Mucus
Relief ER)
vortioxetine 5 mg tablet 5 mg PO DAILY 01/02/24 10/07/25 10/07/25 History
(Trintellix)
zolpidem 5 mg tablet (Ambien) 5 mg PO HS 10/15/25 10/15/25 10/15/25 History
Review of Systems
-
Unable to Obtain full review of systems at this time due to: Other ( Per HPI)
Vitals / Labs / Diagnostic Testing
Vital Signs
Temp Pulse Resp BP Pulse Ox
98.7 F 91 20 125/73 96
10/15/25 07:00 10/15/25 07:00 10/15/25 07:00 10/15/25 07:00 10/15/25 07:00
Lab Data
10/15/25 06:15
10/15/25 06:15
Laboratory Results
10/14/25
21:29
pH 7.43
pCO2 32
pO2 87
HCO3 21.2
O2 Delivery Level
Diagnostic Testing:
Physical Exam
-
Exam:
well-nourished and well-developed in no apparent distress
HEENT-atraumatic, normocephalic
Neck-supple, no JVD, no bruit
Heart-regular rate and rhythm-no murmurs, rubs or gallops
Chest with diminished breath sounds, prolonged expiratory time, expiratory wheezes and no crackles
Back-no tenderness
Abdomen-soft, nontender, nondistended, no hepatosplenomegaly
Extremities-no cyanosis, clubbing, edema and good peripheral pulses
Integument-intact, no rashes, lesions or ecchymosis
Neurology-alert and oriented, nonfocal motor and sensory exam
Assessment
-
65-year-old former smoking female with history of severe persistent asthma on immunoglobulin replacement therapy as well as IL-5 inhibitor, long QT, DVT and pulm embolism, hypertension, diabetes and breast cancer presented with covid infection 1
week ago and had increasing wheezing, cough, shortness of breath presented to the emergency room with an asthma exacerbation-pulmonary consulted for asthma exacerbation/ covid infection 10/15/2025.
Asthma-severe persistent with acute exacerbation
Covid infection
IgG deficiency
Chronic steroid dependence
Mild normocytic anemia-hemoglobin 11.2
Hyperglycemia
Conditions present prior to admission:
Asthma-severe persistent on IL-5 inhibitor Nucala
History respiratory failure/ventilator dependence.
History of lung nodules
Urticaria
Atopy
Chronic sinusitis
Prolonged QT syndrome.
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
Chronic steroid dependence.
History of DVT/PE.
Hypertension.
Diabetes.
Breast cancer.
Anxiety/depression
Resting tremor
GERD
Bilateral mastectomy/reconstruction. Cholecystectomy. Cervical fusion. Bilateral total knee replacement. Tonsillectomy. IVC filter-removed 2019. Right shoulder replacement. Bunionectomy.
Plan
Respiratory decompensation likely due to viral infection inducing asthma exacerbation in a patient with severe persistent asthma
Of note patient had multiple repetitive hospitalizations until IV GG and IL-5 inhibitor was initiated-has been wheeze free for nearly 2 years prior to this event
20 pages of office notes were reviewed and radiographs, echocardiogram, pulmonary function tests and labs are summarized below
Supplemental oxygen if needed-currently on 2 L-attempt to wean off
Assess discharge supplemental oxygen needs prior to discharge
Aspiration precautions
Advair continues
Nebulizers
Decadron 4 mg IV every 8 hours-fairly rapid taper-patient on chronic low-dose prednisone
Mucolytic's
No obvious bacterial infection
Covid infection 7 days ago-not a candidate for antivirals
Of note patient with 3 previous vaccinations and 1 natural infection leading to significant immunity
IV GG as outpatient
Check cultures
Sputum culture if possible
Ceftriaxone and doxycycline initiated empirically
DVT prophylaxis-on Xarelto
Nutrition
Early mobilization
Reviewed with nursing
Patient last saw Dr. Menjivar 10/19 and has an appointment with Christel MIRELES 10/27/2025 at 11 AM
Diagnostic data:
Chest x-ray 10/08/2025-lungs clear
Chest x-ray 10/14/2025-NAD
Echocardiogram 05/27/2024-EF 56%, trace mitral regurgitation,
PFTs 01/14/25:Spirometry demonstrated mild restrictive lung disease. Total lung capacity was 73% of predicted and previously was 73% of predictedand previously was 78% predicted.Forced vital capacity was 2.15 L or 83% of predicted and previously 1.87
L or 71% of predicted and 2.16 L, 1.98 L,, 1.86 L, 1.93 L, 2.10 L 2.09 LFEV1 was 1.76 L or 89% of predicted and previously 1.57 L or 78% of predicted, 1.78 L, 1.64 L, 1.57 L, 1.76 L, 1.84 L and 1.63 L,Total lung capacity was 73% of predicted
indicating mild restrictive lung disease. The total lung capacity was stable.
04-12-09: IgG level 876. IgG 3 low at 16. IgA 124. IgM 2244-5-10:
RAST screen-[place]- high specific IgE antibody titers
Data Reviewed
-
PFT: Report reviewed by me
EKG: Report reviewed by me
Radiology: Image personally visualized and interpreted and Report reviewed by me
CT Scan: Report reviewed by me
Medical Tests (Nuc Med, Echo etc): Report reviewed by me
Labs: Labs reviewed by me
Old Records: Reviewed
Total Time Spent with Patient (in minutes): 65
[2025-10-15] MEDS: NOVOLOG FLEXPEN-LOW RESISTANCE SC (11:33)
[2025-10-15] MEDS: DUONEB 3 ML INH ×3 (11:38→19:42)
--- NOTE | 2025-10-15 12:38 | CM ---
Addendum entered by Maritza Moses 10/15/25 12:55:
Spoke with pt who is upset about pending discharge. States she hasn't practiced walking in the boot yet and wants to speak to DR. Ochoa. Dr. Ochoa TT
Original Note:
Met with patient bedside. IA completed. IMM given verbally and placed on chart.
Pt is independent in ADLs and IADLs. [facility] with 2 steps at the entrance and 13 steps to the 2nd floor where the full bath is located. DME : dual nebulizer.Does not know DME provider. Remote HX of VN with Ellie
redeemer. REmote hx of SNF; unknown. NO food insecurities identified. NO hx of home O2. Confirmed PCP, rx, insurance and drug coverage.
ON room air. +Covid. IV steroids and IV ABXs continue
Plan: Home no needs. Will watch for dc needs.
[2025-10-15 13:02] LABS: Glucose - Point of Care 334 mg/dl (70-99)
[2025-10-15] MEDS: NOVOLOG FLEXPEN-LOW RESISTANCE 4 UNITS SC (13:18)
[2025-10-15 16:19] LABS: Glucose - Point of Care 280 mg/dl (70-99)
[2025-10-15] MEDS: LIPITOR 20 MG PO (16:55)
[2025-10-15] MEDS: NOVOLOG FLEXPEN-LOW RESISTANCE 3 UNITS SC (16:55)
[2025-10-15] MEDS: MUCINEX 1200 MG PO (20:52)
[2025-10-15 21:35] LABS: Glucose - Point of Care 330 mg/dl (70-99)
[2025-10-15] MEDS: NOVOLOG FLEXPEN 4 UNITS SC (22:37)
[2025-10-16] MEDS: ROCEPHIN 1000 MG IV (00:07)
[2025-10-16] MEDS: STERILE WATER FOR INJECTION 10 ML IV (00:07)
[2025-10-16] MEDS: DECADRON 4 MG IV ×3 (00:08→17:07)
[2025-10-16] MEDS: ROBITUSSIN DM 5 ML PO (01:50)
[2025-10-16 03:31] VITALS: BP 140/85
[2025-10-16 06:00] VITALS: BMI 32.6
[2025-10-16 07:02] LABS: Glucose - Point of Care 183 mg/dl (70-99)
[2025-10-16 07:05] VITALS: BP 154/100
[2025-10-16 07:15] LABS: Hematocrit 36.3 % (37.0-47.0); Hemoglobin 12.4 g/dL (12.0-16.0); Mean Corp Hgb Conc. 34.2 g/dL (33.0-37.0); Mean Corpuscular Volume 91.4 fL (81.0-99.0); Platelet Count 215 10^3/uL (130-400); Red Cell Dist. Width 13.3 % (11.5-14.5)
[2025-10-16] MEDS: ADVAIR HFA 115/21 MCG INHALER 2 PUFF INH (07:17)
[2025-10-16] MEDS: DUONEB 3 ML INH ×4 (07:17→19:36)
[2025-10-16 07:58] LABS: Blood Urea Nitrogen 12 mg/dl (7-17); Calcium 9.3 mg/dl (8.4-10.2); Carbon Dioxide 25 mmol/L (22-30); Chloride 101 mmol/L (98-107); Estimated Creatinine Clearance 61 ml/min; Glucose 200 mg/dl (70-99); Potassium 4.3 mmol/L (3.5-5.1); Sodium 134 mmol/L (135-145); eGFR > 60.00
[2025-10-16 08:08] LABS: Magnesium 1.9 mg/dl (1.6-2.3)
[2025-10-16] MEDS: WELLBUTRIN XL (24 hour extended release) 150 MG PO (08:22)
[2025-10-16] MEDS: VALTREX 500 MG PO (08:22)
[2025-10-16] MEDS: XARELTO 20 MG PO (08:22)
[2025-10-16] MEDS: BUSPAR 15 MG PO ×3 (08:22→21:50)
[2025-10-16] MEDS: VIBRAMYCIN 100 MG PO ×2 (08:22→21:27)
[2025-10-16] MEDS: PEPCID 20 MG PO ×2 (08:22→21:27)
[2025-10-16] MEDS: NOVOLOG FLEXPEN-LOW RESISTANCE 1 UNITS SC (08:23)
[2025-10-16 11:40] VITALS: BP 152/89
[2025-10-16 12:09] LABS: Glucose - Point of Care 345 mg/dl (70-99)
[2025-10-16] MEDS: COZAAR 100 MG PO (12:16)
[2025-10-16] MEDS: XANAX 1 MG PO (12:16)
[2025-10-16] MEDS: NOVOLOG FLEXPEN-LOW RESISTANCE 4 UNITS SC (12:16)
[2025-10-16] MEDS: ORETIC 12.5 MG PO (12:16)
--- NOTE | 2025-10-16 15:00 | W.PN.PUL3 ---
Today's Communication / Plan
-
- Continue IV steroids and scheduled DuoNeb
- Hold Advair, initiate budesonide nebulized twice a day
- Continue doxycycline. Discontinue ceftriaxone, chest x-ray essentially unremarkable
- Additional as needed albuterol
- O2 support as needed
- Anticipate transition to oral steroids over next 24 to 48 hours
Assessment
-
65-year-old former smoking female with history of severe persistent asthma on immunoglobulin replacement therapy as well as IL-5 inhibitor, long QT, DVT and pulm embolism, hypertension, diabetes and breast cancer presented with covid infection 1
week ago and had increasing wheezing, cough, shortness of breath presented to the emergency room with an asthma exacerbation-pulmonary consulted for asthma exacerbation/ covid infection 10/15/2025.
Asthma-severe persistent with acute exacerbation
Covid-19 infection, recent (10/08/2025)
IgG deficiency
Chronic steroid dependence
Mild normocytic anemia-hemoglobin 11.2
Hyperglycemia
Conditions present prior to admission:
Asthma-severe persistent on IL-5 inhibitor Nucala
History respiratory failure/ventilator dependence.
History of lung nodules
Urticaria
Atopy
Chronic sinusitis
Prolonged QT syndrome.
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
Chronic steroid dependence.
History of DVT/PE.
Hypertension.
Diabetes.
Breast cancer.
Anxiety/depression
Resting tremor
GERD
Bilateral mastectomy/reconstruction. Cholecystectomy. Cervical fusion. Bilateral total knee replacement. Tonsillectomy. IVC filter-removed 2019. Right shoulder replacement. Bunionectomy.
Plan
Respiratory decompensation likely due to viral infection inducing asthma exacerbation in a patient with severe persistent asthma
Of note patient had multiple repetitive hospitalizations until IvIg and IL-5 inhibitor were initiated-has been wheeze free for nearly 2 years prior to this event
Continue DuoNeb 4 times daily, IV Decadron for now. Switch Advair to budesonide nebulized twice a day.
No obvious consolidation noted on chest x-ray, discontinue ceftriaxone. Can continue doxycycline for presumed acute bronchitis.
No obvious bacterial infection
Covid infection 7 days ago-not a candidate for antivirals
Of note patient with 3 previous vaccinations and 1 natural infection leading to significant immunity
Resume Nucala and IVIG post discharge.
WBC count normal, afebrile.
DVT prophylaxis-on Xarelto
Nutrition
Early mobilization
Reviewed with nursing
Patient last saw Dr. Menjivar 10/19 and has an appointment with Christel MIRELES 10/27/2025 at 11 AM
Diagnostic data:
Chest x-ray 10/08/2025-lungs clear
Chest x-ray 10/14/2025-NAD
Echocardiogram 05/27/2024-EF 56%, trace mitral regurgitation,
PFTs 01/14/25:Spirometry demonstrated mild restrictive lung disease. Total lung capacity was 73% of predicted and previously was 73% of predictedand previously was 78% predicted.Forced vital capacity was 2.15 L or 83% of predicted and previously 1.87
L or 71% of predicted and 2.16 L, 1.98 L,, 1.86 L, 1.93 L, 2.10 L 2.09 LFEV1 was 1.76 L or 89% of predicted and previously 1.57 L or 78% of predicted, 1.78 L, 1.64 L, 1.57 L, 1.76 L, 1.84 L and 1.63 L,Total lung capacity was 73% of predicted
indicating mild restrictive lung disease. The total lung capacity was stable.
04-12-09: IgG level 876. IgG 3 low at 16. IgA 124. IgM 2244-5-10:
RAST screen-[place]- high specific IgE antibody titers
Subjective Data
-
Date of Service:
Date of Service: October 16, 2025
Subjective:
Patient comfortably lying in bed in no acute distress, reports feeling overall better than her initial presentation to emergency room
Review of Systems
Genitourinary: Other (All 14 systems reviewed and negative except as stated above in the history of present illness.)
Objective Data
Data Reviewed
Vital Signs / I&O / Oxygen:
Vital Signs
Temp Pulse Resp BP Pulse Ox
98.3 F 77 16 152/89 99
10/16/25 11:40 10/16/25 12:06 10/16/25 12:06 10/16/25 11:40 10/16/25 12:06
Intake and Output
10/15/25 10/16/25 10/17/25
06:59 06:59 06:59
Intake Total 720 / 720 1140 / 1140
Balance 720 / 720 1140 / 1140
SaO2 99
Physical Exam
General: Comfortable
HEENT: Normocephalic
Cardiovascular: S1-S2
Respiratory: Wheeze
GI: Soft and Non Distended
Neurology: Awake and Alert
Skin: Warm
Labs/Micro/Reports
Lab Data
10/16/25 06:12
10/16/25 06:12
[2025-10-16 15:15] VITALS: BP 131/89
--- NOTE | 2025-10-16 15:57 | W.PN.HOSP.TC ---
Today's Communication/Plan
-
See plan
Assessment / Plan
Assessment / Plan
Physical Exam
General: Not in acute distress
HEENT: Moist mucous membranes
Respiratory: Decreased breath sounds and expiratory wheezing bilaterally
Cardiac: S1/S2 and RRR
GI: Soft, Non Tender, Non Distended and Normal Bowel Sounds
Musculoskeletal: No Cyanosis and No Edema
Neuro: AAO x 3
Assessment/Plan
65y F with [facility] significant for severe persistent asthma (followed outpatient by Dr. Menjivar), immunoglobulin deficiency, long QT and prior VTE who presented to [facility] ED complaining of cough, wheezing and shortness of breath. Patient notes that she
started with headache, sinus congestion and sore throat around 10/07/25-10/08/25. She was seen in the ED here on 10/08/25 and diagnosed with COVID-19 at that time. Patient was not hypoxemic and had no cough, etc at that time. She stated that she
went home and increased her nebs to 4 times daily and increased her usual prednisone (6-7mg daily) to 30mg daily. Her symptoms did not significantly improve. About 2 days prior to presentation, she began to develop cough and wheezing. Her symptoms
have become progressively more severe and she presented to the emergency room for further evaluation.
[facility] with Acute Exacerbation
COVID-19 Infection
History respiratory failure/ventilator dependence when had COVID years ago
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
Chronic Steroid Dependence
Immunocompromised State
- COVID positive on 10/08. Not up to date with vaccinations.
- Continue scheduled Duonebs, IV steroids, O2 support, budesonide. Hold home Advair.
- Continue antibiotics for now given secondary change in symptoms in the past few days, immunocompromised state, etc.
- Follow temp curve, symptoms, etc.
- Follow proper precautions for now as patient remains symptomatic.
- Pulmonary evaluation for additional recommendations.
- Continue prophylactic valacyclovir.
Prolonged QT syndrome
- Avoid QTc prolonging medications
Benign Hypertension
History of Hypertensive Emergency with Ocular Side Effects
- Stable.
- Resume home Losartan-HCTZ
DM-II
- Hold PO meds acutely.
- Follow glucose and cover with SSI as needed - especially while on IV steroids.
- A1C 5.0%
- On 10/16/25, I communicated via [facility] [employer] with pharmacist Alana Foley and we noted that patient's blood glucose had been elevated despite sliding scale insulin with being on Dexamethasone, the decision was made to start insulin glargine 8 units
this evening and increase the sliding scale to moderate resistance
History of lung nodules
Urticaria
Atopy
Chronic sinusitis
History of Breast cancer status post bilateral mastectomy/reconstruction.
GERD
Cholecystectomy
Cervical fusion
Bilateral total knee replacement
Tonsillectomy.
Right shoulder replacement.
Bunionectomy.
Anxiety / Depression
- Confirm / continue usual meds in the AM.
- Continue alprazolam PRN (confirmed via PDMP).
Chronic Pain Syndrome
- Continue Percocet PRN pain.
- Rx confirmed via PDMP.
Resting Tremor
History of DVT/PE -- IVC filter-removed 2019.
-Continue Xarelto
DVT Prophylaxis: Xarelto
Code Status: Full
Anticipated Discharge: 24 - 48 hours
Subjective/Interval History
-
Date of Service: October 16, 2025
Patient was seen and examined. She reported shortness of breath is better but still wheezing a lot.
Objective Data
-
Labs:
Laboratory Results
10/16/25
06:12
WBC 7.9
Hgb 12.4
Hct 36.3 L
Plt Count 215
Sodium 134 L
Potassium 4.3
Chloride 101
Carbon Dioxide 25
BUN 12
Creatinine 0.8
Glucose 200 H
Calcium 9.3
Vital Signs:
Vital Signs
Temp Pulse Resp BP Pulse Ox
98.3 F 80 16 131/89 99
10/16/25 15:15 10/16/25 15:16 10/16/25 15:16 10/16/25 15:15 10/16/25 15:16
I&O
10/15/25 10/16/25 10/17/25
06:59 06:59 06:59
Intake Total 720 / 720 1140 / 1140
Balance 720 / 720 1140 / 1140
[2025-10-16 16:57] LABS: Glucose - Point of Care 255 mg/dl (70-99)
[2025-10-16] MEDS: LIPITOR 20 MG PO (17:07)
[2025-10-16] MEDS: NOVOLOG FLEXPEN-MODERATE RESISTANCE 5 UNITS SC (17:08)
[2025-10-16 19:13] VITALS: BP 128/82
[2025-10-16] MEDS: PULMICORT 0.5 MG INH (19:37)
[2025-10-16] MEDS: AMBIEN 5 MG PO (21:51)
[2025-10-16] MEDS: LANTUS 0.08 UNITS SC (21:59)
[2025-10-16 22:08] LABS: Glucose - Point of Care 337 mg/dl (70-99)
[2025-10-16 23:21] VITALS: BP 147/83
[2025-10-17] MEDS: DECADRON 4 MG IV ×3 (00:50→15:51)
[2025-10-17 03:32] VITALS: BP 138/87
[2025-10-17 06:00] VITALS: BMI 32.7
[2025-10-17 07:15] LABS: Hematocrit 35.1 % (37.0-47.0); Hemoglobin 12.0 g/dL (12.0-16.0); Mean Corp Hgb Conc. 34.2 g/dL (33.0-37.0); Mean Corpuscular Volume 89.3 fL (81.0-99.0); Platelet Count 196 10^3/uL (130-400); Red Cell Dist. Width 13.2 % (11.5-14.5)
[2025-10-17] MEDS: PULMICORT 0.5 MG INH ×2 (07:31→19:24)
[2025-10-17] MEDS: DUONEB 3 ML INH ×4 (07:31→19:22)
[2025-10-17 07:32] LABS: Blood Urea Nitrogen 17 mg/dl (7-17); Calcium 9.4 mg/dl (8.4-10.2); Carbon Dioxide 26 mmol/L (22-30); Chloride 101 mmol/L (98-107); Estimated Creatinine Clearance 54 ml/min; Glucose 200 mg/dl (70-99); Potassium 4.6 mmol/L (3.5-5.1); Sodium 131 mmol/L (135-145); eGFR > 60.00
[2025-10-17 08:00] VITALS: BP 158/85
[2025-10-17 09:26] LABS: Glucose - Point of Care 166 mg/dl (70-99)
[2025-10-17] MEDS: BUSPAR 15 MG PO ×3 (11:12→22:04)
[2025-10-17] MEDS: VIBRAMYCIN 100 MG PO ×2 (11:13→19:46)
[2025-10-17] MEDS: ORETIC 12.5 MG PO (11:22)
[2025-10-17] MEDS: VALTREX 500 MG PO (11:23)
[2025-10-17] MEDS: NOVOLOG FLEXPEN-MODERATE RESISTANCE 1 UNITS SC ×2 (11:26→17:18)
[2025-10-17] MEDS: WELLBUTRIN XL (24 hour extended release) 150 MG PO (11:27)
[2025-10-17] MEDS: XARELTO 20 MG PO (11:27)
[2025-10-17] MEDS: COZAAR 100 MG PO (11:28)
[2025-10-17] MEDS: PEPCID PO (11:30)
[2025-10-17 12:23] LABS: Glucose - Point of Care 228 mg/dl (70-99)
[2025-10-17 12:24] VITALS: BP 150/85
[2025-10-17] MEDS: NOVOLOG FLEXPEN-MODERATE RESISTANCE 3 UNITS SC (12:37)
--- NOTE | 2025-10-17 14:32 | W.PN.PUL3 ---
Today's Communication / Plan
-
- Continue current dose of IV steroid for another day, gradually improving wheezing
- Continue scheduled DuoNeb and budesonide
Assessment
-
65-year-old former smoking female with history of severe persistent asthma on immunoglobulin replacement therapy as well as IL-5 inhibitor, long QT, DVT and pulm embolism, hypertension, diabetes and breast cancer presented with covid infection 1
week ago and had increasing wheezing, cough, shortness of breath presented to the emergency room with an asthma exacerbation-pulmonary consulted for asthma exacerbation/ covid infection 10/15/2025.
Asthma-severe persistent with acute exacerbation
Covid-19 infection, recent (10/08/2025)
IgG deficiency
Chronic steroid dependence
Mild normocytic anemia-hemoglobin 11.2
Hyperglycemia
Conditions present prior to admission:
Asthma-severe persistent on IL-5 inhibitor Nucala
History respiratory failure/ventilator dependence.
History of lung nodules
Urticaria
Atopy
Chronic sinusitis
Prolonged QT syndrome.
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
Chronic steroid dependence.
History of DVT/PE.
Hypertension.
Diabetes.
Breast cancer.
Anxiety/depression
Resting tremor
GERD
Bilateral mastectomy/reconstruction. Cholecystectomy. Cervical fusion. Bilateral total knee replacement. Tonsillectomy. IVC filter-removed 2019. Right shoulder replacement. Bunionectomy.
Plan
Respiratory decompensation likely due to viral infection inducing asthma exacerbation in a patient with severe persistent asthma
Of note patient had multiple repetitive hospitalizations until IvIg and IL-5 inhibitor were initiated-has been wheeze free for nearly 2 years prior to this event
Continue DuoNeb 4 times daily, IV Decadron for now. Switched Advair to budesonide nebulized twice a day.
No obvious consolidation noted on chest x-ray, discontinued ceftriaxone. Can continue doxycycline for presumed acute bronchitis x 5 days.
No obvious bacterial infection
Covid-19 infection 7 days ago-not a candidate for antivirals
Of note patient with 3 previous vaccinations and 1 natural infection leading to significant immunity
Resume Nucala and IVIG post discharge.
WBC count normal, afebrile.
DVT prophylaxis-on Xarelto
Nutrition
Early mobilization
Patient last saw Dr. Menjivar 10/19 and has an appointment with Christel MIRELES 10/27/2025 at 11 AM
Diagnostic data:
Chest x-ray 10/08/2025-lungs clear
Chest x-ray 10/14/2025-NAD
Echocardiogram 05/27/2024-EF 56%, trace mitral regurgitation,
PFTs 01/14/25:Spirometry demonstrated mild restrictive lung disease. Total lung capacity was 73% of predicted and previously was 73% of predictedand previously was 78% predicted.Forced vital capacity was 2.15 L or 83% of predicted and previously 1.87
L or 71% of predicted and 2.16 L, 1.98 L,, 1.86 L, 1.93 L, 2.10 L 2.09 LFEV1 was 1.76 L or 89% of predicted and previously 1.57 L or 78% of predicted, 1.78 L, 1.64 L, 1.57 L, 1.76 L, 1.84 L and 1.63 L,Total lung capacity was 73% of predicted
indicating mild restrictive lung disease. The total lung capacity was stable.
04-12-09: IgG level 876. IgG 3 low at 16. IgA 124. IgM 2244-5-10:
RAST screen-[place]- high specific IgE antibody titers
Subjective Data
-
Date of Service:
Date of Service: October 17, 2025
Subjective:
Comfortably lying in bed, on room air, reports mild improvement.
Review of Systems
Genitourinary: Other (All 14 systems reviewed and negative except as stated above in the history of present illness.)
Objective Data
Data Reviewed
Vital Signs / I&O / Oxygen:
Vital Signs
Temp Pulse Resp BP Pulse Ox
98.3 F 98 18 150/85 96
10/17/25 12:24 10/17/25 12:24 10/17/25 12:24 10/17/25 12:24 10/17/25 12:24
Intake and Output
10/16/25 10/17/25 10/18/25
06:59 06:59 06:59
Intake Total 1140 / 1140 1440 / 1440
Balance 1140 / 1140 1440 / 1440
SaO2 96
Physical Exam
General: Comfortable
HEENT: Normocephalic
Cardiovascular: S1-S2
Respiratory: Wheeze (Gradually improving wheezing)
GI: Soft and Non Distended
Neurology: Awake and Alert
Skin: Warm
Labs/Micro/Reports
Lab Data
10/17/25 06:14
10/17/25 06:14
[2025-10-17] MEDS: FLUSH (NSS) 2 FLUSH IV (15:45)
[2025-10-17 16:49] LABS: Glucose - Point of Care 171 mg/dl (70-99)
[2025-10-17 16:55] VITALS: BP 161/98
[2025-10-17] MEDS: LIPITOR 20 MG PO (17:17)
[2025-10-17] MEDS: XANAX 1 MG PO (17:23)
--- NOTE | 2025-10-17 17:35 | W.PN.HOSP.TC ---
Today's Communication/Plan
-
Still coughing and wheezing a lot
Continue IV steroids
See plan
Assessment / Plan
Assessment / Plan
Physical Exam
General: Not in acute distress
HEENT: Moist mucous membranes
Respiratory: Decreased breath sounds and expiratory wheezing bilaterally
Cardiac: S1/S2 and RRR
GI: Soft, Non Tender, Non Distended and Normal Bowel Sounds
Musculoskeletal: No Cyanosis and No Edema
Neuro: AAO x 3
Assessment/Plan
65y F with [facility] significant for severe persistent asthma (followed outpatient by Dr. Menjivar), immunoglobulin deficiency, long QT and prior VTE who presented to [facility] ED complaining of cough, wheezing and shortness of breath. Patient notes that she
started with headache, sinus congestion and sore throat around 10/07/25-10/08/25. She was seen in the ED here on 10/08/25 and diagnosed with COVID-19 at that time. Patient was not hypoxemic and had no cough, etc at that time. She stated that she
went home and increased her nebs to 4 times daily and increased her usual prednisone (6-7mg daily) to 30mg daily. Her symptoms did not significantly improve. About 2 days prior to presentation, she began to develop cough and wheezing. Her symptoms
have become progressively more severe and she presented to the emergency room for further evaluation.
Severe Persistent Asthma (on outpatient Nucala) with Acute Exacerbation
COVID-19 Infection
History respiratory failure/ventilator dependence when had COVID years ago
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
Chronic Steroid Dependence
Immunocompromised State
- COVID positive on 10/08. Not up to date with vaccinations.
- Continue scheduled Duonebs, IV steroids, O2 support, budesonide. Hold home Advair.
- Continue antibiotics for now given secondary change in symptoms in the past few days, immunocompromised state, etc.
- Follow temp curve, symptoms, etc.
- Follow proper precautions for now as patient remains symptomatic.
- Pulmonary evaluation for additional recommendations.
- Continue prophylactic valacyclovir.
Prolonged QT syndrome
- Avoid QTc prolonging medications
Benign Hypertension
History of Hypertensive Emergency with Ocular Side Effects
- Stable.
- Continue home Losartan-HCTZ
DM-II
- Hold PO meds acutely.
- Follow glucose and cover with SSI as needed - especially while on IV steroids.
- A1C 5.0%
- Lantus Insulin -- will likely need to be reduced/stopped as patient is tapered off steroids/steroids dose decreased
- Sliding Scale Insulin
History of lung nodules
Urticaria
Atopy
Chronic sinusitis
History of Breast cancer status post bilateral mastectomy/reconstruction.
GERD
Cholecystectomy
Cervical fusion
Bilateral total knee replacement
Tonsillectomy.
Right shoulder replacement.
Bunionectomy.
Anxiety / Depression
- Confirm / continue usual meds in the AM.
- Continue alprazolam PRN (confirmed via PDMP).
Chronic Pain Syndrome
- Continue Percocet PRN pain.
- Rx confirmed via PDMP.
Resting Tremor
History of DVT/PE -- IVC filter-removed 2019.
-Continue Xarelto
DVT Prophylaxis: Xarelto
Code Status: Full
Anticipated Discharge: 24 - 48 hours
Subjective/Interval History
-
Date of Service: October 17, 2025
Patient was seen and examined. She reported continued SOB and cough.
Objective Data
-
Labs:
Laboratory Results
10/17/25
06:14
WBC 9.1
Hgb 12.0
Hct 35.1 L
Plt Count 196
Sodium 131 L
Potassium 4.6
Chloride 101
Carbon Dioxide 26
BUN 17
Creatinine 0.9
Glucose 200 H
Calcium 9.4
Vital Signs:
Vital Signs
Temp Pulse Resp BP Pulse Ox
98.5 F 99 18 161/98 100
10/17/25 16:55 10/17/25 16:55 10/17/25 16:55 10/17/25 16:55 10/17/25 16:55
I&O
10/16/25 10/17/25 10/18/25
06:59 06:59 06:59
Intake Total 1140 / 1140 1440 / 1440
Balance 1140 / 1140 1440 / 1440
[2025-10-17 19:20] VITALS: BP 150/84
[2025-10-17 21:56] LABS: Glucose - Point of Care 303 mg/dl (70-99)
[2025-10-17] MEDS: MUCINEX 1200 MG PO (22:10)
[2025-10-17] MEDS: AMBIEN 5 MG PO (22:11)
[2025-10-17] MEDS: LANTUS 0.05 UNITS SC (22:11)
[2025-10-17] MEDS: NOVOLOG FLEXPEN 7 UNITS SC (22:38)
[2025-10-17 23:33] VITALS: BP 136/87
[2025-10-18] MEDS: DECADRON 4 MG IV ×4 (00:30→23:23)
[2025-10-18] MEDS: DUONEB 3 ML INH ×5 (02:32→19:20)
[2025-10-18 03:35] VITALS: BP 122/73
[2025-10-18 04:29] LABS: Glucose - Point of Care 197 mg/dl (70-99)
[2025-10-18 06:00] VITALS: BMI 32.6
[2025-10-18 07:01] LABS: Hematocrit 34.1 % (37.0-47.0); Hemoglobin 12.0 g/dL (12.0-16.0); Mean Corp Hgb Conc. 35.2 g/dL (33.0-37.0); Mean Corpuscular Volume 89.3 fL (81.0-99.0); Platelet Count 197 10^3/uL (130-400); Red Cell Dist. Width 13.4 % (11.5-14.5)
[2025-10-18 07:31] LABS: Blood Urea Nitrogen 22 mg/dl (7-17); Calcium 9.2 mg/dl (8.4-10.2); Carbon Dioxide 26 mmol/L (22-30); Chloride 103 mmol/L (98-107); Estimated Creatinine Clearance 54 ml/min; Glucose 191 mg/dl (70-99); Potassium 4.6 mmol/L (3.5-5.1); Sodium 133 mmol/L (135-145); eGFR > 60.00
[2025-10-18] MEDS: PULMICORT 0.5 MG INH ×2 (07:55→19:20)
[2025-10-18 08:06] LABS: Glucose - Point of Care 171 mg/dl (70-99)
[2025-10-18 08:07] VITALS: BP 135/84
--- NOTE | 2025-10-18 08:20 | W.PN.HOSP.TC ---
Today's Communication/Plan
-
see a/p
Assessment / Plan
Assessment / Plan
Physical Exam
General: Not in acute distress
HEENT: Moist mucous membranes
Respiratory: Decreased breath sounds and expiratory wheezing bilaterally
Cardiac: S1/S2 and RRR
GI: Soft, Non Tender, Non Distended and Normal Bowel Sounds
Musculoskeletal: No Cyanosis and No Edema
Neuro: AAO x 3
Assessment/Plan
65y F with [facility] significant for severe persistent asthma (followed outpatient by Dr. Menjivar), immunoglobulin deficiency, long QT and prior VTE who presented to [facility] ED complaining of cough, wheezing and shortness of breath. Patient notes that she
started with headache, sinus congestion and sore throat around 10/07/25-10/08/25. She was seen in the ED here on 10/08/25 and diagnosed with COVID-19 at that time. Patient was not hypoxemic and had no cough, etc at that time. She stated that she
went home and increased her nebs to 4 times daily and increased her usual prednisone (6-7mg daily) to 30mg daily. Her symptoms did not significantly improve. About 2 days prior to presentation, she began to develop cough and wheezing. Her symptoms
have become progressively more severe and she presented to the emergency room for further evaluation.
[facility] with Acute Exacerbation
COVID-19 Infection
History respiratory failure/ventilator dependence when had COVID years ago
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
Chronic Steroid Dependence
Immunocompromised State
- COVID positive on 10/08. Completed Hospital Quarantine protocols.
- Continue scheduled Duonebs, IV steroids, O2 support, budesonide. Hold home Advair.
- Continue doxycycline total 5 days planned
- Pulmonary eval appreciated
- Continue prophylactic valacyclovir.
Prolonged QT syndrome
- Avoid QTc prolonging medications
Benign Hypertension
History of Hypertensive Emergency with Ocular Side Effects
- Stable.
- Continue home Losartan-HCTZ
reported hx DM-II (no A1c on record consist w/ DM however)
Steroid induced hyperglycemia
Obesity
- A1C 5.0%
- Metformin resumed
-cont sliding scale
History of lung nodules
Urticaria
Atopy
Chronic sinusitis
History of Breast cancer status post bilateral mastectomy/reconstruction.
GERD
Cholecystectomy
Cervical fusion
Bilateral total knee replacement
Tonsillectomy.
Right shoulder replacement.
Bunionectomy.
Anxiety / Depression
- Confirm / continue usual meds in the AM.
- Continue alprazolam PRN (confirmed via PDMP).
Chronic Pain Syndrome
- Continue Percocet PRN pain.
- Rx confirmed via PDMP.
Resting Tremor
History of DVT/PE -- IVC filter-removed 2019.
-Continue Xarelto
DVT Prophylaxis: Xarelto
Code Status: Full
Discussed with patient and patient's sister Roseline
I spent a total of 40 minutes with the patient or on the floor. More than 50% of this time involved counseling and coordination of care.
Anticipated Discharge: 24 - 48 hours
Subjective/Interval History
-
Date of Service: October 18, 2025
No acute distress, ambulatory without need for assist device, stable respiratory status on room air. Wheezing persists. Sister Roseline present during evaluation.
Objective Data
-
Labs:
Laboratory Results
10/18/25
06:14
WBC 9.1
Hgb 12.0
Hct 34.1 L
Plt Count 197
Sodium 133 L
Potassium 4.6
Chloride 103
Carbon Dioxide 26
BUN 22 H
Creatinine 0.9
Glucose 191 H
Calcium 9.2
Vital Signs:
Vital Signs
Temp Pulse Resp BP Pulse Ox
97.7 F 85 18 135/84 93
10/18/25 08:07 10/18/25 08:07 10/18/25 08:07 10/18/25 08:07 10/18/25 08:07
I&O
10/17/25 10/18/25 10/19/25
06:59 06:59 06:59
Intake Total 1440 / 1440 480 / 480
Balance 1440 / 1440 480 / 480
--- NOTE | 2025-10-18 09:24 | W.PN.PUL3 ---
Today's Communication / Plan
-
Remains on IV steroids, but does not feel ready to transition to p.o. yet
Has ongoing cough, wheezing complaints
Encouraged I-S, out of bed as tolerated
Outpatient follow-up as scheduled
Assessment
-
65-year-old former smoking female with history of severe persistent asthma on immunoglobulin replacement therapy as well as IL-5 inhibitor, long QT, DVT and pulm embolism, hypertension, diabetes and breast cancer presented with covid infection 1
week ago and had increasing wheezing, cough, shortness of breath presented to the emergency room with an asthma exacerbation-pulmonary consulted for asthma exacerbation/ covid infection 10/15/2025.
Asthma-severe persistent with acute exacerbation
Covid-19 infection, recent (10/08/2025)
IgG deficiency
Chronic steroid dependence
Mild normocytic anemia-hemoglobin 11.2
Hyperglycemia
Conditions present prior to admission:
Asthma-severe persistent on IL-5 inhibitor Nucala
History respiratory failure/ventilator dependence.
History of lung nodules
Urticaria
Atopy
Chronic sinusitis
Prolonged QT syndrome.
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
Chronic steroid dependence.
History of DVT/PE.
Hypertension.
Diabetes.
Breast cancer.
Anxiety/depression
Resting tremor
GERD
Bilateral mastectomy/reconstruction. Cholecystectomy. Cervical fusion. Bilateral total knee replacement. Tonsillectomy. IVC filter-removed 2019. Right shoulder replacement. Bunionectomy.
Plan
Respiratory decompensation likely due to viral infection inducing asthma exacerbation in a patient with severe persistent asthma
Of note patient had multiple repetitive hospitalizations until IVIG and IL-5 inhibitor were initiated-has been wheeze free for nearly 2 years prior to this event
Continue DuoNeb 4 times daily, IV Decadron for now. Switched Advair to budesonide nebulized twice a day.
No obvious consolidation noted on chest x-ray, discontinued ceftriaxone. Can continue doxycycline for presumed acute bronchitis x 5 days.
She does not feel ready to wean her steroid dosing today
No obvious bacterial infection
Covid-19 infection 7 days ago-not a candidate for antivirals
Of note patient with 3 previous vaccinations and 1 natural infection leading to significant immunity
Resume Nucala and IVIG post discharge.
WBC count normal, afebrile.
DVT prophylaxis-on Xarelto
Nutrition
Early mobilization
Patient last saw Dr. Menjivar 10/19 and has an appointment with Christel MIRELES 10/27/2025 at 11 AM
She will be transitioning to Dr. Longoria
Diagnostic data:
Chest x-ray 10/08/2025-lungs clear
Chest x-ray 10/14/2025-NAD
Echocardiogram 05/27/2024-EF 56%, trace mitral regurgitation,
PFTs 01/14/25:Spirometry demonstrated mild restrictive lung disease. Total lung capacity was 73% of predicted and previously was 73% of predictedand previously was 78% predicted.Forced vital capacity was 2.15 L or 83% of predicted and previously 1.87
L or 71% of predicted and 2.16 L, 1.98 L,, 1.86 L, 1.93 L, 2.10 L 2.09 LFEV1 was 1.76 L or 89% of predicted and previously 1.57 L or 78% of predicted, 1.78 L, 1.64 L, 1.57 L, 1.76 L, 1.84 L and 1.63 L,Total lung capacity was 73% of predicted
indicating mild restrictive lung disease. The total lung capacity was stable.
04-12-09: IgG level 876. IgG 3 low at 16. IgA 124. IgM 2244-5-10:
RAST screen-[place]- high specific IgE antibody titers
Total time spent on this consultation/encounter __51__ minutes which includes review of history, physical exam, medications, laboratory data, personal review of imaging, extensive review of outpatient records, discussion with care team and
respiratory therapy.
Subjective Data
-
Date of Service:
Date of Service: October 18, 2025
Chief Complaint: Pulmonary Follow Up
Subjective:
Still does not feel 'over the hump'
Does not want to change her IV steroid dosing
Objective Data
Data Reviewed
Vital Signs / I&O / Oxygen:
Vital Signs
Temp Pulse Resp BP Pulse Ox
97.7 F 85 18 135/84 93
10/18/25 08:07 10/18/25 08:07 10/18/25 08:07 10/18/25 08:07 10/18/25 08:07
Intake and Output
10/17/25 10/18/25 10/19/25
06:59 06:59 06:59
Intake Total 1440 / 1440 480 / 480
Balance 1440 / 1440 480 / 480
SaO2 93
Physical Exam
General: Comfortable and Other (NAD)
HEENT: Normocephalic and Anicteric
Cardiovascular: S1-S2 and Regular Rhythm
Respiratory: Wheeze (Gradually improving wheezing), Rhonchi and Non-Labored Respirations
GI: Soft and Non Distended
Neurology: Awake, Alert, Oriented and No Motor Deficits
Skin: Warm
Labs/Micro/Reports
Lab Data
10/18/25 06:14
10/18/25 06:14
[2025-10-18] MEDS: NOVOLOG FLEXPEN-MODERATE RESISTANCE 1 UNITS SC ×2 (09:33→17:47)
[2025-10-18] MEDS: ORETIC 12.5 MG PO (09:34)
[2025-10-18] MEDS: XARELTO 20 MG PO (09:34)
[2025-10-18] MEDS: WELLBUTRIN XL (24 hour extended release) 150 MG PO (09:34)
[2025-10-18] MEDS: VIBRAMYCIN 100 MG PO ×2 (09:34→21:12)
[2025-10-18] MEDS: VALTREX 500 MG PO (09:34)
[2025-10-18] MEDS: BUSPAR 15 MG PO ×3 (09:35→21:12)
[2025-10-18] MEDS: COZAAR 100 MG PO (09:35)
[2025-10-18] MEDS: PEPCID 20 MG PO (09:35)
--- NOTE | 2025-10-18 10:13 | PTCARENOTE ---
pt off covid precautions after discussion with infection prevention this morning. pt made aware.
[2025-10-18 11:05] VITALS: BP 145/76
[2025-10-18 12:13] LABS: Glucose - Point of Care 323 mg/dl (70-99)
[2025-10-18] MEDS: NOVOLOG FLEXPEN-MODERATE RESISTANCE 7 UNITS SC (12:47)
--- NOTE | 2025-10-18 14:51 | CM ---
CM following re: discharge planning.
Reviewed pt's chart, met with pt.
Pt stated she will be reassessed tomorrow regarding her discharge.
IMM reviewed, placed on chart, pt has a copy.
Pt reports she lives with a friend in a 2SH and pt is independent in all areas [employer].
D/C plan: home no needs.
[2025-10-18 15:07] VITALS: BP 148/82
[2025-10-18 17:38] LABS: Glucose - Point of Care 168 mg/dl (70-99)
[2025-10-18] MEDS: NON-FORMULARY ITEM 5 MG PO (17:45)
[2025-10-18] MEDS: GLUCOPHAGE 500 MG PO (17:46)
[2025-10-18] MEDS: LIPITOR 20 MG PO (17:52)
[2025-10-18] MEDS: AMBIEN 5 MG PO (21:13)
[2025-10-18 21:41] LABS: Glucose - Point of Care 332 mg/dl (70-99)
[2025-10-18 23:18] VITALS: BP 146/90
[2025-10-18] MEDS: NOVOLOG FLEXPEN 7 UNITS SC (23:23)
[2025-10-19] MEDS: DUONEB 3 ML INH ×5 (01:18→19:30)
[2025-10-19 05:37] VITALS: BMI 32.8
[2025-10-19 05:55] LABS: Glucose - Point of Care 233 mg/dl (70-99)
[2025-10-19 06:18] LABS: Hematocrit 34.3 % (37.0-47.0); Hemoglobin 11.7 g/dL (12.0-16.0); Mean Corp Hgb Conc. 34.1 g/dL (33.0-37.0); Mean Corpuscular Volume 88.4 fL (81.0-99.0); Platelet Count 220 10^3/uL (130-400); Red Cell Dist. Width 13.7 % (11.5-14.5)
[2025-10-19 07:00] VITALS: BP 130/76
[2025-10-19] MEDS: PULMICORT 0.5 MG INH ×2 (07:06→19:30)
[2025-10-19 07:10] LABS: Blood Urea Nitrogen 22 mg/dl (7-17); Calcium 9.2 mg/dl (8.4-10.2); Carbon Dioxide 24 mmol/L (22-30); Chloride 102 mmol/L (98-107); Estimated Creatinine Clearance 61 ml/min; Glucose 205 mg/dl (70-99); Potassium 4.4 mmol/L (3.5-5.1); Sodium 132 mmol/L (135-145); eGFR > 60.00
--- NOTE | 2025-10-19 07:42 | W.PN.HOSP.TC ---
Today's Communication/Plan
-
steroids bronchodilators
last day for Doxycycline
Encourage Incentive Spirometer use
sputum cx if possible
glycemic control
scheduled mucinex, prn robitussin tessalon cough
Assessment / Plan
Assessment / Plan
Physical Exam
General: Not in acute distress
HEENT: Moist mucous membranes
Respiratory: Decreased breath sounds and expiratory wheezing bilaterally
Cardiac: S1/S2 and RRR
GI: Soft, Non Tender, Non Distended and Normal Bowel Sounds
Musculoskeletal: No Cyanosis and No Edema
Neuro: AAO x 3
Assessment/Plan
65y F with H significant for severe persistent asthma (followed outpatient by Dr. Menjivar), immunoglobulin deficiency, long QT and prior VTE who presented to [facility] ED complaining of cough, wheezing and shortness of breath. Patient notes that she
started with headache, sinus congestion and sore throat around 10/07/25-10/08/25. She was seen in the ED here on 10/08/25 and diagnosed with COVID-19 at that time. Patient was not hypoxemic and had no cough, etc at that time. She stated that she
went home and increased her nebs to 4 times daily and increased her usual prednisone (6-7mg daily) to 30mg daily. Her symptoms did not significantly improve. About 2 days prior to presentation, she began to develop cough and wheezing. Her symptoms
have become progressively more severe and she presented to the emergency room for further evaluation.
Severe Persistent Asthma (on outpatient Nucala) with Acute Exacerbation
COVID-19 Infection
History respiratory failure/ventilator dependence when had COVID years ago
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
Chronic Steroid Dependence
Immunocompromised State
- COVID positive on 10/08. Completed Hospital Quarantine protocols.
- Continue scheduled Duonebs, IV steroids, O2 support, budesonide. Hold home Advair.
- completed 5 days Doxycycline
- Pulmonary eval appreciated
- Continue prophylactic valacyclovir
- supportive care cough, scheduled mucinex prn Robitussin Tessalon, sputum cx if able
- CXR 10/19 appreciated no acute abn's
Prolonged QT syndrome
- Avoid QTc prolonging medications
Benign Hypertension
History of Hypertensive Emergency with Ocular Side Effects
- Stable.
- Continue home Losartan-HCTZ
reported hx DM-II (no A1c on record consist w/ DM however)
Steroid induced hyperglycemia
Obesity
- A1C 5.0%
- Metformin resumed
-cont sliding scale
History of lung nodules
Urticaria
Atopy
Chronic sinusitis
History of Breast cancer status post bilateral mastectomy/reconstruction.
GERD
Cholecystectomy
Cervical fusion
Bilateral total knee replacement
Tonsillectomy.
Right shoulder replacement.
Bunionectomy.
Anxiety / Depression
- Confirm / continue usual meds in the AM.
- Continue alprazolam PRN
Chronic Pain Syndrome
- Continue Percocet PRN pain.
Resting Tremor
History of DVT/PE -- IVC filter-removed 2019.
-Continue Xarelto
DVT Prophylaxis: Xarelto
Code Status: Full
I spent a total of 40 minutes with the patient or on the floor. More than 50% of this time involved counseling and coordination of care.
Anticipated Discharge: 24 - 48 hours
Subjective/Interval History
-
Date of Service: October 19, 2025
wheezing coughing persists. productive thick yellow sputum. Respiratory status otherwise remains stable on room air.
Objective Data
-
Labs:
Laboratory Results
10/19/25
05:32
WBC 9.8
Hgb 11.7 L
Hct 34.3 L
Plt Count 220
Sodium 132 L
Potassium 4.4
Chloride 102
Carbon Dioxide 24
BUN 22 H
Creatinine 0.8
Glucose 205 H
Calcium 9.2
Vital Signs:
Vital Signs
Temp Pulse Resp BP Pulse Ox
98.0 F 101 22 146/90 98
10/18/25 23:18 10/19/25 07:09 10/19/25 07:09 10/18/25 23:18 10/19/25 07:09
I&O
10/18/25 10/19/25 10/20/25
06:59 06:59 06:59
Intake Total 480 / 480 360 / 360
Balance 480 / 480 360 / 360
[2025-10-19 08:14] LABS: Glucose - Point of Care 175 mg/dl (70-99)
[2025-10-19] MEDS: VALTREX 500 MG PO (08:29)
[2025-10-19] MEDS: WELLBUTRIN XL (24 hour extended release) 150 MG PO (08:29)
[2025-10-19] MEDS: VIBRAMYCIN 100 MG PO ×2 (08:29→21:24)
[2025-10-19] MEDS: NON-FORMULARY ITEM 5 MG PO (08:29)
[2025-10-19] MEDS: BUSPAR 15 MG PO ×3 (08:29→21:25)
[2025-10-19] MEDS: ORETIC 12.5 MG PO (08:29)
[2025-10-19] MEDS: GLUCOPHAGE 500 MG PO ×2 (08:29→16:55)
[2025-10-19] MEDS: NOVOLOG FLEXPEN-MODERATE RESISTANCE 1 UNITS SC (08:30)
[2025-10-19] MEDS: DECADRON 4 MG IV ×3 (08:30→23:26)
[2025-10-19] MEDS: XARELTO 20 MG PO (08:30)
[2025-10-19] MEDS: COZAAR 100 MG PO (08:30)
[2025-10-19] MEDS: PEPCID 20 MG PO (08:30)
--- NOTE | 2025-10-19 09:23 | W.PN.PUL3 ---
Today's Communication / Plan
-
She does not wish to reduce her IV steroid dosing today, she can otherwise be easily transitioned to PO course when she feels ready
Sputum culture if able
I encouraged her to use her IS, her effort is <1L, which is likely not causing her to make any progress in her care
Encouraged OOB/PT, ambulation
Assessment
-
65-year-old former smoking female with history of severe persistent asthma on immunoglobulin replacement therapy as well as IL-5 inhibitor, long QT, DVT and pulm embolism, hypertension, diabetes and breast cancer presented with covid infection 1
week ago and had increasing wheezing, cough, shortness of breath presented to the emergency room with an asthma exacerbation-pulmonary consulted for asthma exacerbation/ covid infection 10/15/2025.
Asthma-severe persistent with acute exacerbation
Covid-19 infection, recent (10/08/2025)
IgG deficiency
Chronic steroid dependence
Mild normocytic anemia-hemoglobin 11.2
Hyperglycemia
Conditions present prior to admission:
Asthma-severe persistent on IL-5 inhibitor Nucala
History respiratory failure/ventilator dependence.
History of lung nodules
Urticaria
Atopy
Chronic sinusitis
Prolonged QT syndrome.
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
Chronic steroid dependence.
History of DVT/PE.
Hypertension.
Diabetes.
Breast cancer.
Anxiety/depression
Resting tremor
GERD
Bilateral mastectomy/reconstruction. Cholecystectomy. Cervical fusion. Bilateral total knee replacement. Tonsillectomy. IVC filter-removed 2019. Right shoulder replacement. Bunionectomy.
Plan
Respiratory decompensation likely due to viral infection inducing asthma exacerbation in a patient with severe persistent asthma
Of note patient had multiple repetitive hospitalizations until IVIG and IL-5 inhibitor were initiated-has been wheeze free for nearly 2 years prior to this event
Continue DuoNeb 4 times daily, IV Decadron for now. Switched Advair to budesonide nebulized twice a day.
No obvious consolidation noted on chest x-ray, discontinued ceftriaxone. Can continue doxycycline for presumed acute bronchitis x 5 days.
She does not feel ready to wean her steroid dosing again today, I advised her against increasing her dose of steroids as this would likely just induce more side effects
Sputum culture if able
Encouraged IS
No obvious bacterial infection
Covid-19 infection 7 days ago-not a candidate for antivirals
Of note patient with 3 previous vaccinations and 1 natural infection leading to significant immunity
Resume Nucala and IVIG post discharge.
WBC count normal, afebrile.
DVT prophylaxis-on Xarelto
Nutrition
Early mobilization
Patient last saw Dr. Menjivar 10/19 and has an appointment with Christel MIRELES 10/27/2025 at 11 AM
She will be transitioning to Dr. Longoria
Diagnostic data:
Chest x-ray 10/08/2025-lungs clear
Chest x-ray 10/14/2025-NAD
Echocardiogram 05/27/2024-EF 56%, trace mitral regurgitation,
PFTs 01/14/25:Spirometry demonstrated mild restrictive lung disease. Total lung capacity was 73% of predicted and previously was 73% of predictedand previously was 78% predicted.Forced vital capacity was 2.15 L or 83% of predicted and previously 1.87
L or 71% of predicted and 2.16 L, 1.98 L,, 1.86 L, 1.93 L, 2.10 L 2.09 LFEV1 was 1.76 L or 89% of predicted and previously 1.57 L or 78% of predicted, 1.78 L, 1.64 L, 1.57 L, 1.76 L, 1.84 L and 1.63 L,Total lung capacity was 73% of predicted
indicating mild restrictive lung disease. The total lung capacity was stable.
04-12-09: IgG level 876. IgG 3 low at 16. IgA 124. IgM 2244-5-10:
RAST screen-[place]- high specific IgE antibody titers
Total time spent on this consultation/encounter __45__ minutes which includes review of history, physical exam, medications, laboratory data, personal review of imaging, extensive review of outpatient records, discussion with care team and
respiratory therapy.
Subjective Data
-
Date of Service:
Date of Service: October 19, 2025
Chief Complaint: Pulmonary Follow Up
Subjective:
Was feeling better, but had bad night, she therefore wants to keep her IV steroids
Coughing but not able to give sputum specimen
She is not doing her IS, <1L attempts
Objective Data
Data Reviewed
Vital Signs / I&O / Oxygen:
Vital Signs
Temp Pulse Resp BP Pulse Ox
97.9 F 101 22 146/90 98
10/19/25 07:00 10/19/25 07:09 10/19/25 07:09 10/19/25 08:30 10/19/25 07:09
Intake and Output
10/18/25 10/19/25 10/20/25
06:59 06:59 06:59
Intake Total 480 / 480 360 / 360
Balance 480 / 480 360 / 360
SaO2 98
Physical Exam
General: Comfortable and Other (NAD)
HEENT: Normocephalic and Anicteric
Cardiovascular: S1-S2 and Regular Rhythm
Respiratory: Rhonchi and Non-Labored Respirations
GI: Soft and Non Distended
Neurology: Awake, Alert, Oriented and No Motor Deficits
Skin: Warm
Labs/Micro/Reports
Lab Data
10/19/25 05:32
10/19/25 05:32
[2025-10-19 12:00] LABS: Glucose - Point of Care 261 mg/dl (70-99)
[2025-10-19] MEDS: NOVOLOG FLEXPEN-MODERATE RESISTANCE 5 UNITS SC (13:34)
--- NOTE | 2025-10-19 14:45 | CM ---
Patient seen at bedside in [address] [place] [address]. Patient states she felt worse today and is awaiting chest x-ray. Patient plan continues to be to return home with no needs at this time, pending medical treatment plan. CM will continue to follow for discharge
planning needs.
Plan; home with no need vs home with VN; watch for medical treatment plan
[2025-10-19 15:25] VITALS: BP 152/88
[2025-10-19] MEDS: LIPITOR 20 MG PO (16:55)
[2025-10-19] MEDS: ROBITUSSIN 200 MG PO (16:55)
[2025-10-19 17:02] LABS: Glucose - Point of Care 221 mg/dl (70-99)
[2025-10-19] MEDS: NOVOLOG FLEXPEN-MODERATE RESISTANCE 3 UNITS SC (18:26)
[2025-10-19] MEDS: MUCINEX 600 MG PO (21:25)
[2025-10-19] MEDS: AMBIEN 5 MG PO (21:27)
[2025-10-19 21:35] LABS: Glucose - Point of Care 298 mg/dl (70-99)
[2025-10-19 23:30] VITALS: BP 146/94
[2025-10-20] MEDS: DUONEB 3 ML INH ×5 (00:58→19:38)
[2025-10-20 06:00] VITALS: BMI 32.8
[2025-10-20 07:00] VITALS: BP 136/87
[2025-10-20] MEDS: PULMICORT 0.5 MG INH ×2 (07:20→19:39)
[2025-10-20 07:23] LABS: Hematocrit 33.5 % (37.0-47.0); Hemoglobin 11.9 g/dL (12.0-16.0); Mean Corp Hgb Conc. 35.5 g/dL (33.0-37.0); Mean Corpuscular Volume 87.0 fL (81.0-99.0); Platelet Count 227 10^3/uL (130-400); Red Cell Dist. Width 13.8 % (11.5-14.5)
[2025-10-20 08:00] LABS: Glucose - Point of Care 162 mg/dl (70-99)
--- NOTE | 2025-10-20 08:07 | W.PN.HOSP.TC ---
Today's Communication/Plan
-
cont steroids bronchodilators
encourage incentive spirometer use
supportive care cough
Assessment / Plan
Assessment / Plan
Physical Exam
General: Not in acute distress
HEENT: Moist mucous membranes
Respiratory: Decreased breath sounds and expiratory wheezing bilaterally, some improvement noted
Cardiac: S1/S2 and RRR
GI: Soft, Non Tender, Non Distended and Normal Bowel Sounds
Musculoskeletal: No Cyanosis and No Edema
Neuro: AAO x 3
Assessment/Plan
65y F with [facility] significant for severe persistent asthma (followed outpatient by Dr. Menjivar), immunoglobulin deficiency, long QT and prior VTE who presented to [facility] ED complaining of cough, wheezing and shortness of breath. Patient notes that she
started with headache, sinus congestion and sore throat around 10/07/25-10/08/25. She was seen in the ED here on 10/08/25 and diagnosed with COVID-19 at that time. Patient was not hypoxemic and had no cough, etc at that time. She stated that she
went home and increased her nebs to 4 times daily and increased her usual prednisone (6-7mg daily) to 30mg daily. Her symptoms did not significantly improve. About 2 days prior to presentation, she began to develop cough and wheezing. Her symptoms
have become progressively more severe and she presented to the emergency room for further evaluation.
Severe Persistent Asthma (on outpatient Nucala) with Acute Exacerbation
COVID-19 Infection
History respiratory failure/ventilator dependence when had COVID years ago
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
Chronic Steroid Dependence
Immunocompromised State
- COVID positive on 10/08. Completed Hospital Quarantine protocols.
- Continue scheduled Duonebs, IV steroids, O2 support, budesonide. Hold home Advair.
- completed 5 days Doxycycline
- Pulmonary eval appreciated
- Continue prophylactic valacyclovir
- supportive care cough, scheduled mucinex prn Robitussin Tessalon, sputum cx if able
- CXR 10/19 appreciated no acute abn's
Prolonged QT syndrome
- Avoid QTc prolonging medications
Benign Hypertension
History of Hypertensive Emergency with Ocular Side Effects
- Stable.
- Continue home Losartan-HCTZ
reported hx DM-II (no A1c on record consist w/ DM however)
Steroid induced hyperglycemia
Obesity
- A1C 5.0%
- Metformin resumed
-cont sliding scale
History of lung nodules
Urticaria
Atopy
Chronic sinusitis
History of Breast cancer status post bilateral mastectomy/reconstruction.
GERD
Cholecystectomy
Cervical fusion
Bilateral total knee replacement
Tonsillectomy.
Right shoulder replacement.
Bunionectomy.
Anxiety / Depression
- Confirm / continue usual meds in the AM.
- Continue alprazolam PRN
Chronic Pain Syndrome
- Continue Percocet PRN pain.
Resting Tremor
History of DVT/PE -- IVC filter-removed 2019.
-Continue Xarelto
DVT Prophylaxis: Xarelto
Code Status: Full
I spent a total of 40 minutes with the patient or on the floor. More than 50% of this time involved counseling and coordination of care.
Anticipated Discharge: 24 - 48 hours
Subjective/Interval History
-
Date of Service: October 20, 2025
Some improvement in wheezing noted.
Objective Data
-
Labs:
Laboratory Results
10/20/25
07:01
WBC 11.1 H
Hgb 11.9 L
Hct 33.5 L
Plt Count 227
Sodium Pending
Potassium Pending
Chloride Pending
Carbon Dioxide Pending
BUN Pending
Creatinine Pending
Glucose Pending
Calcium Pending
Vital Signs:
Vital Signs
Temp Pulse Resp BP Pulse Ox
98.0 F 90 20 146/94 98
10/19/25 23:30 10/20/25 07:23 10/20/25 07:23 10/19/25 23:30 10/20/25 07:23
I&O
10/19/25 10/20/25 10/21/25
06:59 06:59 06:59
Intake Total 360 / 360 1020 / 1020
Balance 360 / 360 1020 / 1020
[2025-10-20 08:09] LABS: Blood Urea Nitrogen 26 mg/dl (7-17); Calcium 8.7 mg/dl (8.4-10.2); Carbon Dioxide 24 mmol/L (22-30); Chloride 100 mmol/L (98-107); Estimated Creatinine Clearance 61 ml/min; Glucose 183 mg/dl (70-99); Magnesium 2.1 mg/dl (1.6-2.3); Potassium 4.8 mmol/L (3.5-5.1); Sodium 130 mmol/L (135-145); eGFR > 60.00
[2025-10-20] MEDS: BUSPAR 15 MG PO ×3 (08:49→21:26)
[2025-10-20] MEDS: MUCINEX 600 MG PO ×2 (08:49→21:24)
[2025-10-20] MEDS: GLUCOPHAGE 500 MG PO ×2 (08:49→17:14)
[2025-10-20] MEDS: NOVOLOG FLEXPEN-MODERATE RESISTANCE 1 UNITS SC ×3 (08:49→17:16)
[2025-10-20] MEDS: VALTREX 500 MG PO (08:50)
[2025-10-20] MEDS: ORETIC 12.5 MG PO (08:51)
[2025-10-20] MEDS: DECADRON 4 MG IV ×3 (08:51→23:27)
[2025-10-20] MEDS: COZAAR 100 MG PO (08:51)
[2025-10-20] MEDS: XARELTO 20 MG PO (08:51)
[2025-10-20] MEDS: WELLBUTRIN XL (24 hour extended release) 150 MG PO (08:51)
[2025-10-20] MEDS: NON-FORMULARY ITEM 5 MG PO (08:52)
[2025-10-20] MEDS: PEPCID 20 MG PO (08:52)
--- NOTE | 2025-10-20 09:26 | W.PN.PUL3 ---
Today's Communication / Plan
-
Patient has declined oral steroids for the past 3 days, again stating today she does not feel ready
I discussed with her the similar dosing of PO prednisone and q12 dosing of IV--she feels the IV is 'better'
IMO she can be transitioned but she again has declined
FU again tomorrow
Assessment
-
65-year-old former smoking female with history of severe persistent asthma on immunoglobulin replacement therapy as well as IL-5 inhibitor, long QT, DVT and pulm embolism, hypertension, diabetes and breast cancer presented with covid infection 1
week ago and had increasing wheezing, cough, shortness of breath presented to the emergency room with an asthma exacerbation-pulmonary consulted for asthma exacerbation/ covid infection 10/15/2025.
Asthma-severe persistent with acute exacerbation
Covid-19 infection, recent (10/08/2025)
IgG deficiency
Chronic steroid dependence
Mild normocytic anemia-hemoglobin 11.2
Hyperglycemia
Conditions present prior to admission:
Asthma-severe persistent on IL-5 inhibitor Nucala
History respiratory failure/ventilator dependence.
History of lung nodules
Urticaria
Atopy
Chronic sinusitis
Prolonged QT syndrome.
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
Chronic steroid dependence.
History of DVT/PE.
Hypertension.
Diabetes.
Breast cancer.
Anxiety/depression
Resting tremor
GERD
Bilateral mastectomy/reconstruction. Cholecystectomy. Cervical fusion. Bilateral total knee replacement. Tonsillectomy. IVC filter-removed 2019. Right shoulder replacement. Bunionectomy.
Plan
Respiratory decompensation likely due to viral infection inducing asthma exacerbation in a patient with severe persistent asthma
Of note patient had multiple repetitive hospitalizations until IVIG and IL-5 inhibitor were initiated-has been wheeze free for nearly 2 years prior to this event
Continue DuoNeb 4 times daily, IV Decadron for now. Switched Advair to budesonide nebulized twice a day.
No obvious consolidation noted on chest x-ray, discontinued ceftriaxone. Can continue doxycycline for presumed acute bronchitis x 5 days.
She does not feel ready to wean her steroid dosing again today, I advised her against increasing her dose of steroids as this would likely just induce more side effects
She again does not feel ready for transition to PO course despite appearance of doing well and being stable
Sputum culture if able
Encouraged IS
No obvious bacterial infection
Covid-19 infection 7 days ago-not a candidate for antivirals
Of note patient with 3 previous vaccinations and 1 natural infection leading to significant immunity
Resume Nucala and IVIG post discharge.
WBC count normal, afebrile.
DVT prophylaxis-on Xarelto
Nutrition
Early mobilization
Patient last saw Dr. Menjivar 10/19 and has an appointment with Christel MIRELES 10/27/2025 at 11 AM
She will be transitioning to Dr. Longoria
Diagnostic data:
Chest x-ray 10/08/2025-lungs clear
Chest x-ray 10/14/2025-NAD
Echocardiogram 05/27/2024-EF 56%, trace mitral regurgitation,
PFTs 01/14/25:Spirometry demonstrated mild restrictive lung disease. Total lung capacity was 73% of predicted and previously was 73% of predictedand previously was 78% predicted.Forced vital capacity was 2.15 L or 83% of predicted and previously 1.87
L or 71% of predicted and 2.16 L, 1.98 L,, 1.86 L, 1.93 L, 2.10 L 2.09 LFEV1 was 1.76 L or 89% of predicted and previously 1.57 L or 78% of predicted, 1.78 L, 1.64 L, 1.57 L, 1.76 L, 1.84 L and 1.63 L,Total lung capacity was 73% of predicted
indicating mild restrictive lung disease. The total lung capacity was stable.
04-12-09: IgG level 876. IgG 3 low at 16. IgA 124. IgM 2244-5-10:
RAST screen-[place]- high specific IgE antibody titers
Total time spent on this consultation/encounter __45__ minutes which includes review of history, physical exam, medications, laboratory data, personal review of imaging, extensive review of outpatient records, discussion with care team and
respiratory therapy.
Subjective Data
-
Date of Service:
Date of Service: October 20, 2025
Chief Complaint: Pulmonary Follow Up
Subjective:
Subjectively appears in NAD, no SOB with conversation
She still does not feel ready for transition to PO course
Objective Data
Data Reviewed
Vital Signs / I&O / Oxygen:
Vital Signs
Temp Pulse Resp BP Pulse Ox
98.3 F 90 20 136/87 98
10/20/25 07:00 10/20/25 07:23 10/20/25 07:23 10/20/25 07:00 10/20/25 07:23
Intake and Output
10/19/25 10/20/25 10/21/25
06:59 06:59 06:59
Intake Total 360 / 360 1020 / 1020
Balance 360 / 360 1020 / 1020
SaO2 98
Physical Exam
General: Comfortable and Other (NAD)
HEENT: Normocephalic and Anicteric
Cardiovascular: S1-S2 and Regular Rhythm
Respiratory: Rhonchi and Non-Labored Respirations
GI: Soft and Non Distended
Neurology: Awake, Alert, Oriented and No Motor Deficits
Skin: Warm
Labs/Micro/Reports
Lab Data
10/20/25 07:01
10/20/25 07:01
Microbiology
10/19/25 21:48 Sputum Respiratory Culture - Final
10/19/25 21:48 Sputum Gram Stain - Final
[2025-10-20 12:13] LABS: Glucose - Point of Care 187 mg/dl (70-99)
[2025-10-20 15:00] VITALS: BP 145/90
--- NOTE | 2025-10-20 15:38 | CM ---
CM following re: discharge planning.
Reviewed pt's chart, met with pt.
Pt reports she lives with a friend in a 2SH and pt is independent in all areas [employer].
D/C plan: home no needs.
[2025-10-20 16:44] LABS: Glucose - Point of Care 189 mg/dl (70-99)
[2025-10-20] MEDS: LIPITOR 20 MG PO (17:14)
[2025-10-20] MEDS: AMBIEN 5 MG PO (21:24)
[2025-10-20 22:00] LABS: Glucose - Point of Care 212 mg/dl (70-99)
[2025-10-20] MEDS: XANAX 1 MG PO (22:26)
[2025-10-20 23:15] VITALS: BP 151/85
[2025-10-21 06:31] LABS: Hematocrit 33.4 % (37.0-47.0); Hemoglobin 11.7 g/dL (12.0-16.0); Mean Corp Hgb Conc. 35.0 g/dL (33.0-37.0); Mean Corpuscular Volume 89.8 fL (81.0-99.0); Platelet Count 210 10^3/uL (130-400); Red Cell Dist. Width 13.7 % (11.5-14.5)
[2025-10-21 07:00] VITALS: BP 139/79
[2025-10-21 07:00] LABS: Blood Urea Nitrogen 28 mg/dl (7-17); Calcium 9.0 mg/dl (8.4-10.2); Carbon Dioxide 27 mmol/L (22-30); Chloride 100 mmol/L (98-107); Estimated Creatinine Clearance 54 ml/min; Glucose 183 mg/dl (70-99); Magnesium 2.2 mg/dl (1.6-2.3); Potassium 4.8 mmol/L (3.5-5.1); Sodium 132 mmol/L (135-145); eGFR > 60.00
[2025-10-21 07:36] LABS: Glucose - Point of Care 181 mg/dl (70-99)
[2025-10-21] MEDS: DUONEB 3 ML INH ×4 (07:39→21:02)
[2025-10-21] MEDS: PULMICORT 0.5 MG INH ×2 (07:39→21:02)
--- NOTE | 2025-10-21 08:08 | W.PN.HOSP.TC ---
Today's Communication/Plan
-
steroid taper
supportive care cough
encourage incentive spirometer acapella use
Assessment / Plan
Assessment / Plan
Physical Exam
General: Not in acute distress
HEENT: Moist mucous membranes
Respiratory: Decreased breath sounds and expiratory wheezing bilaterally, some improvement noted. stable resp status room air
Cardiac: S1/S2 and RRR
GI: Soft, Non Tender, Non Distended and Normal Bowel Sounds
Musculoskeletal: No Cyanosis and No Edema
Neuro: AAO x 3 conversant coherent
Assessment/Plan
65y F with H significant for severe persistent asthma (followed outpatient by Dr. Menjivar), immunoglobulin deficiency, long QT and prior VTE who presented to [facility] ED complaining of cough, wheezing and shortness of breath. Patient notes that she
started with headache, sinus congestion and sore throat around 10/07/25-10/08/25. She was seen in the ED here on 10/08/25 and diagnosed with COVID-19 at that time. Patient was not hypoxemic and had no cough, etc at that time. She stated that she
went home and increased her nebs to 4 times daily and increased her usual prednisone (6-7mg daily) to 30mg daily. Her symptoms did not significantly improve. About 2 days prior to presentation, she began to develop cough and wheezing. Her symptoms
have become progressively more severe and she presented to the emergency room for further evaluation.
Severe Persistent Asthma (on outpatient Nucala) with Acute Exacerbation
COVID-19 Infection
History respiratory failure/ventilator dependence when had COVID years ago
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
Chronic Steroid Dependence
Immunocompromised State
- COVID positive on 10/08. Completed Hospital Quarantine protocols.
- stable respiratory status room air
- Continue scheduled Duonebs, IV steroids tapered to Decadron 4 mg Q12, budesonide. Hold home Advair.
- completed 5 days Doxycycline
- Pulmonary eval appreciated
- Continue prophylactic valacyclovir
- supportive care cough, scheduled mucinex prn Robitussin Tessalon, sputum cx if able
- CXR 10/19 appreciated no acute abn's
Prolonged QT syndrome
- Avoid QTc prolonging medications
Benign Hypertension
History of Hypertensive Emergency with Ocular Side Effects
- Stable.
- Continue home Losartan-HCTZ
reported hx DM-II
Steroid induced hyperglycemia
Obesity
- A1C 5.0% (non-diabetic level)
- Metformin resumed (for obesity)
- cont sliding scale
History of lung nodules
Urticaria
Atopy
Chronic sinusitis
History of Breast cancer status post bilateral mastectomy/reconstruction.
GERD
Cholecystectomy
Cervical fusion
Bilateral total knee replacement
Tonsillectomy.
Right shoulder replacement.
Bunionectomy.
Anxiety / Depression
- Confirm / continue usual meds in the AM.
- Continue alprazolam PRN
Chronic Pain Syndrome
- Continue Percocet PRN pain.
Resting Tremor
History of DVT/PE -- IVC filter-removed 2019.
-Continue Xarelto
DVT Prophylaxis: Xarelto
Code Status: Full
I spent a total of 40 minutes with the patient or on the floor. More than 50% of this time involved counseling and coordination of care.
Anticipated Discharge: 24 - 48 hours
Subjective/Interval History
-
Date of Service: October 21, 2025
some symptoms improvement noted. No acute distress, resting comfortably in bed. Agreeable to steroid tapers, IV decadron reduced to 4mg Q12H.
Objective Data
-
Labs:
Laboratory Results
10/21/25
06:08
WBC 11.2 H
Hgb 11.7 L
Hct 33.4 L
Plt Count 210
Sodium 132 L
Potassium 4.8
Chloride 100
Carbon Dioxide 27
BUN 28 H
Creatinine 0.9
Glucose 183 H
Calcium 9.0
Vital Signs:
Vital Signs
Temp Pulse Resp BP Pulse Ox
98.5 F 92 18 151/85 98
10/20/25 23:15 10/21/25 07:43 10/21/25 07:43 10/20/25 23:15 10/21/25 07:43
I&O
10/20/25 10/21/25 10/22/25
06:59 06:59 06:59
Intake Total 1020 / 1020 1779
Balance 1020 / 1020 1779
[2025-10-21] MEDS: NOVOLOG FLEXPEN-MODERATE RESISTANCE 1 UNITS SC ×3 (08:44→17:17)
[2025-10-21] MEDS: PEPCID 20 MG PO (08:45)
[2025-10-21] MEDS: MUCINEX 600 MG PO ×2 (08:45→20:56)
[2025-10-21] MEDS: WELLBUTRIN XL (24 hour extended release) 150 MG PO (08:45)
[2025-10-21] MEDS: BUSPAR 15 MG PO ×3 (08:46→22:03)
[2025-10-21] MEDS: XARELTO 20 MG PO (08:46)
[2025-10-21] MEDS: ORETIC 12.5 MG PO (08:46)
[2025-10-21] MEDS: VALTREX 500 MG PO (08:46)
[2025-10-21] MEDS: GLUCOPHAGE 500 MG PO ×2 (08:46→17:16)
[2025-10-21] MEDS: COZAAR 100 MG PO (08:46)
[2025-10-21] MEDS: NON-FORMULARY ITEM 5 MG PO (08:47)
[2025-10-21] MEDS: DECADRON 4 MG IV ×2 (08:47→20:56)
[2025-10-21 12:39] LABS: Glucose - Point of Care 152 mg/dl (70-99)
[2025-10-21 15:00] VITALS: BP 135/77
--- NOTE | 2025-10-21 16:17 | W.PN.PUL3 ---
Today's Communication / Plan
-
Patient has declined oral steroids stating today she does not feel ready
Will continue to wean down her IV Decadron, now down to 4 mg IV q12hr from 4mg IV q8hr
Dr. Woodard discussed with her the similar dosing of PO prednisone and q12 dosing of IV--she feels the IV is 'better'
Start anti-tussants with scheduled tessalon perles and prn codeine cough syrup, evelyn if she needs something for sleep and coughing spells
s/p course of Doxy (and 2 doses of rocephin)
Pulmonary service will continue to follow along
Assessment
-
65-year-old former smoking female with history of severe persistent asthma on immunoglobulin replacement therapy as well as IL-5 inhibitor, long QT, DVT and pulm embolism, hypertension, diabetes and breast cancer presented with covid infection 1
week ago and had increasing wheezing, cough, shortness of breath presented to the emergency room with an asthma exacerbation-pulmonary consulted for asthma exacerbation/ covid infection 10/15/2025.
Asthma-severe persistent with acute exacerbation
Covid-19 infection, recent (10/08/2025)
IgG deficiency
Chronic steroid dependence
Mild normocytic anemia
Hyperglycemia
Conditions present prior to admission:
Asthma-severe persistent on IL-5 inhibitor Nucala
History respiratory failure/ventilator dependence.
History of lung nodules
Urticaria
Atopy
Chronic sinusitis
Prolonged QT syndrome.
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
Chronic steroid dependence.
History of DVT/PE.
Hypertension.
Diabetes.
Breast cancer.
Anxiety/depression
Resting tremor
GERD
Bilateral mastectomy/reconstruction. Cholecystectomy. Cervical fusion. Bilateral total knee replacement. Tonsillectomy. IVC filter-removed 2019. Right shoulder replacement. Bunionectomy.
Plan
Respiratory decompensation likely due to recent viral infection inducing asthma exacerbation in a patient with severe persistent asthma
Of note patient had multiple repetitive hospitalizations until IVIG and IL-5 inhibitor were initiated-has been wheeze free for nearly 2 years prior to this event
Continue DuoNeb 4 times daily, IV Decadron for now. Switched Advair to budesonide nebulized twice a day.
No obvious consolidation noted on chest x-ray, discontinued ceftriaxone. s/p doxy from 10/14 - 10/19 for presumed acute bronchitis x 5 days.
Weaned down Decadron from 4 mg IV q8hr to 4mg IV q12hr
She again does not feel ready for transition to PO course despite appearance of doing well and being stable
Given her significant cough, I will start her on scheduled Tessalon Perles and prn codeine cough syrup, especially if she needs something to help her fall/stay asleep
Sputum culture collected on 10/19, however there was over contamination with oropharyngeal guillermo
Encouraged IS
No obvious bacterial infection
Covid-19 infection 7 days ago-not a candidate for antivirals
Of note patient with 3 previous vaccinations and 1 natural infection leading to significant immunity
Resume Nucala and IVIG post discharge.
Trend WBC and monitor temperature curve
DVT prophylaxis-on Xarelto
Nutrition
Early mobilization
Patient last saw Dr. Menjivar 10/19 and has an appointment with Christel MIRELES 10/27/2025 at 11 AM
She will be transitioning to Dr. Longoria
Diagnostic data:
Chest x-ray 10/08/2025-lungs clear
Chest x-ray 10/14/2025-NAD
Echocardiogram 05/27/2024-EF 56%, trace mitral regurgitation,
PFTs 01/14/25:Spirometry demonstrated mild restrictive lung disease. Total lung capacity was 73% of predicted and previously was 73% of predictedand previously was 78% predicted.Forced vital capacity was 2.15 L or 83% of predicted and previously 1.87
L or 71% of predicted and 2.16 L, 1.98 L,, 1.86 L, 1.93 L, 2.10 L 2.09 LFEV1 was 1.76 L or 89% of predicted and previously 1.57 L or 78% of predicted, 1.78 L, 1.64 L, 1.57 L, 1.76 L, 1.84 L and 1.63 L,Total lung capacity was 73% of predicted
indicating mild restrictive lung disease. The total lung capacity was stable.
04-12-09: IgG level 876. IgG 3 low at 16. IgA 124. IgM 4-5-:
RAST screen-[place]- high specific IgE antibody titers
Total time spent on this consultation/encounter __41__ minutes which includes review of history, physical exam, medications, laboratory data, personal review of imaging, extensive review of outpatient records, discussion with care team and
respiratory therapy.
Subjective Data
-
Date of Service:
Date of Service: October 21, 2025
Chief Complaint: Pulmonary Follow Up
Subjective:
Patient seen and evaluated today at bedside (late note entry). Patient currently on room air breathing comfortably, saturating 98%. Still coughing and wheezing. She says she overall is improving but not quick enough. She does not feel ready to
go home yet.
Review of Systems
General: Other (Negative unless mentioned above)
Objective Data
Data Reviewed
Vital Signs / I&O / Oxygen:
Vital Signs
Temp Pulse Resp BP Pulse Ox
97.9 F 92 18 139/79 98
10/21/25 07:00 10/21/25 07:43 10/21/25 07:43 10/21/25 07:00 10/21/25 07:43
Intake and Output
10/20/25 10/21/25 10/22/25
06:59 06:59 06:59
Intake Total 1020 / 1020 1779
Balance 1020 / 1020 1779
SaO2 98
Physical Exam
General: Respiratory Distress (n), Comfortable and Other (NAD)
HEENT: Normocephalic and Anicteric
Cardiovascular: S1-S2 and Peripheral Edema (n)
Respiratory: Wheeze ([place] bilaterally when patient is coughing), Crackles (n), Rhonchi ([place] bilaterally), Non-Labored Respirations and Stridor (n)
GI: Soft, Non Distended, Non Tender and Normal Bowel Sounds
Neurology: Awake, Alert, Oriented and Tremors (n)
Skin: Warm, Dry, Cyanosis (n) and Jaundice (n)
Labs/Micro/Reports
Lab Data
10/21/25 06:08
10/21/25 06:08
Microbiology
10/19/25 21:48 Sputum Respiratory Culture - Final
10/19/25 21:48 Sputum Gram Stain - Final
[2025-10-21 17:14] LABS: Glucose - Point of Care 198 mg/dl (70-99)
[2025-10-21] MEDS: LIPITOR 20 MG PO (17:16)
[2025-10-21] MEDS: TESSALON PERLES 200 MG PO (22:03)
[2025-10-21] MEDS: AMBIEN 5 MG PO (22:04)
[2025-10-21 22:08] LABS: Glucose - Point of Care 164 mg/dl (70-99)
[2025-10-21 23:19] VITALS: BP 131/85
[2025-10-22] MEDS: TYLENOL 325 MG PO (00:59)
[2025-10-22] MEDS: ROBITUSSIN 200 MG PO (00:59)
[2025-10-22] MEDS: ROXICODONE 10 MG PO (01:00)
[2025-10-22] MEDS: DUONEB 3 ML INH ×6 (01:13→23:30)
[2025-10-22 06:35] LABS: Hematocrit 34.8 % (37.0-47.0); Hemoglobin 11.7 g/dL (12.0-16.0); Mean Corp Hgb Conc. 33.6 g/dL (33.0-37.0); Mean Corpuscular Volume 89.9 fL (81.0-99.0); Platelet Count 232 10^3/uL (130-400); Red Cell Dist. Width 14.1 % (11.5-14.5)
[2025-10-22 06:47] LABS: Blood Urea Nitrogen 31 mg/dl (7-17); Calcium 8.4 mg/dl (8.4-10.2); Carbon Dioxide 27 mmol/L (22-30); Chloride 100 mmol/L (98-107); Estimated Creatinine Clearance 54 ml/min; Glucose 155 mg/dl (70-99); Magnesium 2.2 mg/dl (1.6-2.3); Potassium 4.6 mmol/L (3.5-5.1); Sodium 130 mmol/L (135-145); eGFR > 60.00
[2025-10-22 07:00] VITALS: BP 115/77
[2025-10-22 07:22] LABS: Glucose - Point of Care 118 mg/dl (70-99)
[2025-10-22] MEDS: PULMICORT 0.5 MG INH ×2 (07:41→17:54)
--- NOTE | 2025-10-22 07:46 | W.PN.HOSP.TC ---
Today's Communication/Plan
-
steroid taper to 50 mg daily
cont scheduled duonebs
supportive care cough
encourage incentive spirometer, acapella use
Assessment / Plan
Assessment / Plan
Physical Exam
General: Not in acute distress
HEENT: Moist mucous membranes
Respiratory: Decreased breath sounds and expiratory wheezing bilaterally, some improvement noted. stable resp status room air
Cardiac: S1/S2 and RRR
GI: Soft, Non Tender, Non Distended and Normal Bowel Sounds
Musculoskeletal: No Cyanosis and No Edema
Neuro: AAO x 3 conversant coherent
Assessment/Plan
65y F with [facility] significant for severe persistent asthma (followed outpatient by Dr. Menjivar), immunoglobulin deficiency, long QT and prior VTE who presented to [facility] ED complaining of cough, wheezing and shortness of breath. Patient notes that she
started with headache, sinus congestion and sore throat around 10/07/25-10/08/25. She was seen in the ED here on 10/08/25 and diagnosed with COVID-19 at that time. Patient was not hypoxemic and had no cough, etc at that time. She stated that she
went home and increased her nebs to 4 times daily and increased her usual prednisone (6-7mg daily) to 30mg daily. Her symptoms did not significantly improve. About 2 days prior to presentation, she began to develop cough and wheezing. Her symptoms
have become progressively more severe and she presented to the emergency room for further evaluation.
Severe Persistent Asthma (on outpatient Nucala) with Acute Exacerbation
COVID-19 Infection
History respiratory failure/ventilator dependence when had COVID years ago
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
Chronic Steroid Dependence
Immunocompromised State
- COVID positive on 10/08. Completed Hospital Quarantine protocols.
- stable respiratory status room air
- Continue scheduled Duonebs, IV Decadron steroids tapered to Prednisone 50 mg daily, budesonide. Hold home Advair.
- completed 5 days Doxycycline
- Pulmonary eval appreciated
- Continue prophylactic valacyclovir
- supportive care cough, scheduled mucinex prn Robitussin Tessalon, sputum cx if able
- CXR 10/19 appreciated no acute abn's
Prolonged QT syndrome
- Avoid QTc prolonging medications
Benign Hypertension
History of Hypertensive Emergency with Ocular Side Effects
- Stable.
- Continue home Losartan-HCTZ
reported hx DM-II
Steroid induced hyperglycemia
Obesity
- A1C 5.0% (non-diabetic level)
- Metformin resumed (for obesity)
- cont sliding scale
History of lung nodules
Urticaria
Atopy
Chronic sinusitis
History of Breast cancer status post bilateral mastectomy/reconstruction.
GERD
Cholecystectomy
Cervical fusion
Bilateral total knee replacement
Tonsillectomy.
Right shoulder replacement.
Bunionectomy.
Anxiety / Depression
- Confirm / continue usual meds in the AM.
- Continue alprazolam PRN
Chronic Pain Syndrome
- Continue Percocet PRN pain.
Resting Tremor
History of DVT/PE -- IVC filter-removed 2019.
-Continue Xarelto
DVT Prophylaxis: Xarelto
Code Status: Full
I spent a total of 40 minutes with the patient or on the floor. More than 50% of this time involved counseling and coordination of care.
Anticipated Discharge: 24 - 48 hours
Subjective/Interval History
-
Date of Service: October 22, 2025
notes some symptoms improvement. agreeable to taper to PO prednisone.
Objective Data
-
Labs:
Laboratory Results
10/22/25
06:02
WBC 12.7 H
Hgb 11.7 L
Hct 34.8 L
Plt Count 232
Sodium 130 L
Potassium 4.6
Chloride 100
Carbon Dioxide 27
BUN 31 H
Creatinine 0.9
Glucose 155 H
Calcium 8.4
Vital Signs:
Vital Signs
Temp Pulse Resp BP Pulse Ox
98.2 F 88 14 131/85 99
10/21/25 23:19 10/22/25 07:45 10/22/25 07:45 10/21/25 23:19 10/22/25 00:04
I&O
10/21/25 10/22/25 10/23/25
06:59 06:59 06:59
Intake Total 1780 / 1780 2560 / 2560
Balance 1780 / 1780 2560 / 2560
[2025-10-22] MEDS: NOVOLOG FLEXPEN-MODERATE RESISTANCE SC (08:26)
[2025-10-22] MEDS: BUSPAR 15 MG PO ×3 (08:26→22:38)
[2025-10-22] MEDS: COZAAR 100 MG PO (08:27)
[2025-10-22] MEDS: TESSALON PERLES 200 MG PO ×3 (08:27→22:37)
[2025-10-22] MEDS: WELLBUTRIN XL (24 hour extended release) 150 MG PO (08:27)
[2025-10-22] MEDS: ORETIC 12.5 MG PO (08:28)
[2025-10-22] MEDS: VALTREX 500 MG PO (08:28)
[2025-10-22] MEDS: GLUCOPHAGE 500 MG PO ×2 (08:28→17:19)
[2025-10-22] MEDS: MUCINEX 600 MG PO ×2 (08:28→20:44)
[2025-10-22] MEDS: PEPCID 20 MG PO (08:28)
[2025-10-22] MEDS: XARELTO 20 MG PO (08:28)
[2025-10-22] MEDS: NON-FORMULARY ITEM 5 MG PO (08:29)
[2025-10-22] MEDS: DECADRON 4 MG IV (08:29)
--- NOTE | 2025-10-22 09:21 | W.PN.PUL3 ---
Today's Communication / Plan
-
Stable on RA, no acute distress, no new complaints
She notes that she will transition to PO course
Observation
Ok for d/c planning per team, she has appt next Saturday for FU in our office
Assessment
-
65-year-old former smoking female with history of severe persistent asthma on immunoglobulin replacement therapy as well as IL-5 inhibitor, long QT, DVT and pulm embolism, hypertension, diabetes and breast cancer presented with covid infection 1
week ago and had increasing wheezing, cough, shortness of breath presented to the emergency room with an asthma exacerbation-pulmonary consulted for asthma exacerbation/ covid infection 10/15/2025.
Asthma-severe persistent with acute exacerbation
Covid-19 infection, recent (10/08/2025)
IgG deficiency
Chronic steroid dependence
Mild normocytic anemia
Hyperglycemia
Conditions present prior to admission:
Asthma-severe persistent on IL-5 inhibitor Nucala
History respiratory failure/ventilator dependence.
History of lung nodules
Urticaria
Atopy
Chronic sinusitis
Prolonged QT syndrome.
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
Chronic steroid dependence.
History of DVT/PE.
Hypertension.
Diabetes.
Breast cancer.
Anxiety/depression
Resting tremor
GERD
Bilateral mastectomy/reconstruction. Cholecystectomy. Cervical fusion. Bilateral total knee replacement. Tonsillectomy. IVC filter-removed 2019. Right shoulder replacement. Bunionectomy.
Plan
Respiratory decompensation likely due to recent viral infection inducing asthma exacerbation in a patient with severe persistent asthma
Of note patient had multiple repetitive hospitalizations until IVIG and IL-5 inhibitor were initiated-has been wheeze free for nearly 2 years prior to this event
Continue DuoNeb 4 times daily, IV Decadron for now. Switched Advair to budesonide nebulized twice a day.
No obvious consolidation noted on chest x-ray, discontinued ceftriaxone. s/p doxy from 10/14 - 10/19 for presumed acute bronchitis x 5 days.
Weaned down Decadron from 4 mg IV q8hr to 4mg IV q12hr
She is willing to try PO course today, will change
Given her significant cough, I will start her on scheduled Tessalon Perles and prn codeine cough syrup, especially if she needs something to help her fall/stay asleep
Sputum culture collected on 10/19, however there was over contamination with oropharyngeal guillermo
Encouraged IS
No obvious bacterial infection
Covid-19 infection 7 days ago-not a candidate for antivirals
Of note patient with 3 previous vaccinations and 1 natural infection leading to significant immunity
Resume Nucala and IVIG post discharge.
Trend WBC and monitor temperature curve
DVT prophylaxis-on Xarelto
Nutrition
Early mobilization
Patient last saw Dr. Menjivar 10/19 and has an appointment with Christel MIRELES 10/27/2025 at 11 AM
She will be transitioning to Dr. Longoria
Diagnostic data:
Chest x-ray 10/08/2025-lungs clear
Chest x-ray 10/14/2025-NAD
Echocardiogram 05/27/2024-EF 56%, trace mitral regurgitation,
PFTs 01/14/25:Spirometry demonstrated mild restrictive lung disease. Total lung capacity was 73% of predicted and previously was 73% of predictedand previously was 78% predicted.Forced vital capacity was 2.15 L or 83% of predicted and previously 1.87
L or 71% of predicted and 2.16 L, 1.98 L,, 1.86 L, 1.93 L, 2.10 L 2.09 LFEV1 was 1.76 L or 89% of predicted and previously 1.57 L or 78% of predicted, 1.78 L, 1.64 L, 1.57 L, 1.76 L, 1.84 L and 1.63 L,Total lung capacity was 73% of predicted
indicating mild restrictive lung disease. The total lung capacity was stable.
04-12-09: IgG level 876. IgG 3 low at 16. IgA 124. IgM 2244-5-10:
RAST screen-[place]- high specific IgE antibody titers
Total time spent on this consultation/encounter __41__ minutes which includes review of history, physical exam, medications, laboratory data, personal review of imaging, extensive review of outpatient records, discussion with care team and
respiratory therapy.
Subjective Data
-
Date of Service:
Date of Service: October 22, 2025
Chief Complaint: Pulmonary Follow Up
Subjective:
Remains clinically unchanged, stable on RA, NAD
Has minimally been getting OOB
Objective Data
Data Reviewed
Vital Signs / I&O / Oxygen:
Vital Signs
Temp Pulse Resp BP Pulse Ox
97.9 F 89 14 115/77 97
10/22/25 07:00 10/22/25 08:27 10/22/25 07:45 10/22/25 08:27 10/22/25 07:00
Intake and Output
10/21/25 10/22/25 10/23/25
06:59 06:59 06:59
Intake Total 1780 / 1780 2560 / 2560
Balance 1780 / 1780 2560 / 2560
SaO2 97
Physical Exam
General: Respiratory Distress (n), Comfortable and Other (NAD)
HEENT: Normocephalic and Anicteric
Cardiovascular: S1-S2 and Peripheral Edema (n)
Respiratory: Wheeze ([place] bilaterally when patient is coughing), Crackles (n), Rhonchi ([place] bilaterally), Non-Labored Respirations and Stridor (n)
GI: Soft, Non Distended, Non Tender and Normal Bowel Sounds
Neurology: Awake, Alert, Oriented and Tremors (n)
Skin: Warm, Dry, Cyanosis (n) and Jaundice (n)
Labs/Micro/Reports
Lab Data
10/22/25 06:02
10/22/25 06:02
Microbiology
10/19/25 21:48 Sputum Respiratory Culture - Final
10/19/25 21:48 Sputum Gram Stain - Final
[2025-10-22 12:07] LABS: Glucose - Point of Care 202 mg/dl (70-99)
[2025-10-22] MEDS: NOVOLOG FLEXPEN-MODERATE RESISTANCE 3 UNITS SC ×2 (12:26→17:20)
--- NOTE | 2025-10-22 15:29 | CM ---
CM following re: discharge planning.
Reviewed pt's chart, met with pt.
Pt reports she lives with a friend in a [place] and pt is independent in all areas [employer].
D/C plan: home no needs.
[2025-10-22 16:17] VITALS: BP 124/68
[2025-10-22 16:42] LABS: Glucose - Point of Care 219 mg/dl (70-99)
[2025-10-22] MEDS: LIPITOR 20 MG PO (17:19)
[2025-10-22] MEDS: DELTASONE 50 MG PO (20:44)
[2025-10-22] MEDS: FLUSH (NSS) 1 FLUSH IV (20:45)
[2025-10-22 21:20] LABS: Glucose - Point of Care 104 mg/dl (70-99)
[2025-10-22] MEDS: AMBIEN 5 MG PO (22:38)
[2025-10-22 23:08] VITALS: BP 146/74
[2025-10-23 06:00] VITALS: BMI 32.9
[2025-10-23 06:49] LABS: Hematocrit 33.8 % (37.0-47.0); Hemoglobin 12.3 g/dL (12.0-16.0); Mean Corp Hgb Conc. 36.4 g/dL (33.0-37.0); Mean Corpuscular Volume 86.9 fL (81.0-99.0); Platelet Count 188 10^3/uL (130-400); Red Cell Dist. Width 13.8 % (11.5-14.5)
[2025-10-23 07:00] VITALS: BP 122/74
[2025-10-23 07:12] LABS: Blood Urea Nitrogen 26 mg/dl (7-17); Calcium 8.5 mg/dl (8.4-10.2); Carbon Dioxide 28 mmol/L (22-30); Chloride 98 mmol/L (98-107); Estimated Creatinine Clearance 55 ml/min; Glucose 151 mg/dl (70-99); Magnesium 2.2 mg/dl (1.6-2.3); Potassium 4.8 mmol/L (3.5-5.1); Sodium 130 mmol/L (135-145); eGFR > 60.00
[2025-10-23] MEDS: PULMICORT 0.5 MG INH ×2 (07:35→17:36)
[2025-10-23] MEDS: DUONEB 3 ML INH ×4 (07:36→17:35)
--- NOTE | 2025-10-23 07:36 | W.PN.HOSP.TC ---
Today's Communication/Plan
-
cont prednisone
start clotrimazole oral thrush
incetive spirometer/acapella
Duoneb
possible discharge tomorrow if remains stable/cont to improve
Assessment / Plan
Assessment / Plan
Physical Exam
General: Not in acute distress
HEENT: Moist mucous membranes, oral thrush
Respiratory: Decreased breath sounds and expiratory wheezing bilaterally, some improvement noted. stable resp status room air. Wheezing notably better when breathing thru mouth instead of nose.
Cardiac: S1/S2 and RRR
GI: Soft, Non Tender, Non Distended and Normal Bowel Sounds
Musculoskeletal: No Cyanosis and No Edema
Neuro: AAO x 3 conversant coherent
Psych: calm
Assessment/Plan
65y F with [facility] significant for severe persistent asthma (followed outpatient by Dr. Menjivar), immunoglobulin deficiency, long QT and prior VTE who presented to [facility] ED complaining of cough, wheezing and shortness of breath. Patient notes that she
started with headache, sinus congestion and sore throat around 10/07/25-10/08/25. She was seen in the ED here on 10/08/25 and diagnosed with COVID-19 at that time. Patient was not hypoxemic and had no cough, etc at that time. She stated that she
went home and increased her nebs to 4 times daily and increased her usual prednisone (6-7mg daily) to 30mg daily. Her symptoms did not significantly improve. About 2 days prior to presentation, she began to develop cough and wheezing. Her symptoms
have become progressively more severe and she presented to the emergency room for further evaluation.
Severe Persistent Asthma (on outpatient Nucala) with Acute Exacerbation
COVID-19 Infection
History respiratory failure/ventilator dependence when had COVID years ago
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
Chronic Steroid Dependence
Immunocompromised State
- COVID positive on 10/08. Completed Hospital Quarantine protocols.
- stable respiratory status room air
- Continue scheduled Duonebs, IV Decadron steroids tapered to Prednisone 50 mg daily, budesonide. Hold home Advair.
- completed 5 days Doxycycline
- Pulmonary eval appreciated
- Continue prophylactic valacyclovir
- supportive care cough, scheduled mucinex prn Robitussin Tessalon, sputum cx if able
- CXR 10/19 appreciated no acute abn's
Oral thrush
-Clotrimazole 10 mg 5/d for 7 days 10/23-10/29
Prolonged QT resolved on ekg 10/14/25
Benign Hypertension
History of Hypertensive Emergency with Ocular Side Effects
- Stable.
- Continue home Losartan-HCTZ
reported hx DM-II
Steroid induced hyperglycemia
Obesity
- A1C 5.0% (non-diabetic level)
- Metformin resumed (for obesity)
- cont sliding scale
History of lung nodules
Urticaria
Atopy
Chronic sinusitis
History of Breast cancer status post bilateral mastectomy/reconstruction.
GERD
Cholecystectomy
Cervical fusion
Bilateral total knee replacement
Tonsillectomy.
Right shoulder replacement.
Bunionectomy.
Anxiety / Depression
- Continue alprazolam PRN
Chronic Pain Syndrome
- Continue Percocet PRN pain.
Resting Tremor
History of DVT/PE -- IVC filter-removed 2019.
-Continue Xarelto
DVT Prophylaxis: Xarelto
Code Status: Full
I spent a total of 40 minutes with the patient or on the floor. More than 50% of this time involved counseling and coordination of care.
Anticipated Discharge: Within 24 hours
Subjective/Interval History
-
Date of Service: October 23, 2025
seen and examined at bedside in no acute distress, resting comfortably in bed. overall reports feeling better. Wheezing improved though not resolved.
Objective Data
-
Labs:
Laboratory Results
10/23/25
06:04
WBC 9.7
Hgb 12.3
Hct 33.8 L
Plt Count 188
Sodium 130 L
Potassium 4.8
Chloride 98
Carbon Dioxide 28
BUN 26 H
Creatinine 0.9
Glucose 151 H
Calcium 8.5
Vital Signs:
Vital Signs
Temp Pulse Resp BP Pulse Ox
98.3 F 93 16 146/74 98
10/22/25 23:08 10/22/25 23:34 10/22/25 23:34 10/22/25 23:08 10/22/25 23:34
I&O
10/22/25 10/23/25 10/24/25
06:59 06:59 06:59
Intake Total 2560 / 2560 1410 / 1410
Balance 2560 / 2560 1410 / 1410
[2025-10-23 08:02] LABS: Glucose - Point of Care 159 mg/dl (70-99)
[2025-10-23] MEDS: NOVOLOG FLEXPEN-MODERATE RESISTANCE 1 UNITS SC (08:43)
[2025-10-23] MEDS: BUSPAR 15 MG PO ×3 (08:44→22:24)
[2025-10-23] MEDS: MUCINEX 600 MG PO ×2 (08:45→20:41)
[2025-10-23] MEDS: WELLBUTRIN XL (24 hour extended release) 150 MG PO (08:45)
[2025-10-23] MEDS: COZAAR 100 MG PO (08:45)
[2025-10-23] MEDS: DELTASONE 50 MG PO (08:45)
[2025-10-23] MEDS: TESSALON PERLES 200 MG PO ×3 (08:45→22:24)
[2025-10-23] MEDS: PEPCID 20 MG PO (08:46)
[2025-10-23] MEDS: VALTREX 500 MG PO (08:46)
[2025-10-23] MEDS: GLUCOPHAGE 500 MG PO ×2 (08:47→17:41)
[2025-10-23] MEDS: XARELTO 20 MG PO (08:47)
[2025-10-23] MEDS: ORETIC 12.5 MG PO (08:47)
[2025-10-23] MEDS: MYCELEX TROCHE 10 MG PO ×5 (08:48→22:26)
[2025-10-23] MEDS: NON-FORMULARY ITEM 5 MG PO (08:48)
[2025-10-23] MEDS: ROXICODONE 10 MG PO ×2 (09:00→20:48)
[2025-10-23 12:04] LABS: Glucose - Point of Care 255 mg/dl (70-99)
[2025-10-23] MEDS: NOVOLOG FLEXPEN-MODERATE RESISTANCE 5 UNITS SC (13:17)
[2025-10-23 15:00] VITALS: BP 100/74
--- NOTE | 2025-10-23 16:41 | W.PN.PUL3 ---
Today's Communication / Plan
-
Stable on RA, no acute distress, no new complaints
Continue prednisone with slow taper
If patient doing well tomorrow morning (10/24/2025), then she is cleared for discharge from pulmonary perspective with steroid taper and with resumption of her home inhalers. Outpatient follow-up will be arranged.
Ok for d/c planning per team, she has appt next Saturday for FU in our office
Assessment
-
65-year-old former smoking female with history of severe persistent asthma on immunoglobulin replacement therapy as well as IL-5 inhibitor, long QT, DVT and pulm embolism, hypertension, diabetes and breast cancer presented with covid infection 1
week ago and had increasing wheezing, cough, shortness of breath presented to the emergency room with an asthma exacerbation-pulmonary consulted for asthma exacerbation/ covid infection 10/15/2025.
Asthma-severe persistent with acute exacerbation
Covid-19 infection, recent (10/08/2025)
IgG deficiency
Chronic steroid dependence
Mild normocytic anemia
Hyperglycemia
Conditions present prior to admission:
Asthma-severe persistent on IL-5 inhibitor Nucala
History respiratory failure/ventilator dependence.
History of lung nodules
Urticaria
Atopy
Chronic sinusitis
Prolonged QT syndrome.
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
Chronic steroid dependence.
History of DVT/PE.
Hypertension.
Diabetes.
Breast cancer.
Anxiety/depression
Resting tremor
GERD
Bilateral mastectomy/reconstruction. Cholecystectomy. Cervical fusion. Bilateral total knee replacement. Tonsillectomy. IVC filter-removed 2019. Right shoulder replacement. Bunionectomy.
Plan
Respiratory decompensation likely due to recent viral infection inducing asthma exacerbation in a patient with severe persistent asthma
Of note patient had multiple repetitive hospitalizations until IVIG and IL-5 inhibitor were initiated-has been wheeze free for nearly 2 years prior to this event
Continue DuoNeb 4 times daily - -> IV Decadron transitioned to prednisone 50mg daily on 10/22; continue prednisone with slow taper, decreasing by 10mg every 5th day until aat her usual home dose.
Previously we weaned down Decadron from 4 mg IV q8hr to 4mg IV q12hr
Switched Advair to budesonide nebulized twice a day.
No obvious consolidation noted on chest x-ray, discontinued ceftriaxone. s/p doxy from 10/14 - 10/19 for presumed acute bronchitis x 5 days.
Given her significant cough, continue scheduled Tessalon Perles and prn codeine cough syrup, especially if she needs something to help her fall/stay asleep
Sputum culture collected on 10/19, however there was over contamination with oropharyngeal guillermo
Encouraged IS
No obvious bacterial infection
Covid-19 infection on 10/08/2025-not a candidate for antivirals
Of note patient with 3 previous vaccinations and 1 natural infection leading to significant immunity
Resume Nucala and IVIG post discharge.
Trend WBC and monitor temperature curve
DVT prophylaxis-on Xarelto
Nutrition
Early mobilization
Patient last saw Dr. Menjivar 10/19 and has an appointment with Christel MIRELES 10/27/2025 at 11 AM
She will be transitioning to Dr. Longoria
If patient doing well tomorrow morning (10/24/2025), then she is cleared for discharge from pulmonary perspective with steroid taper and with resumption of her home inhalers. Outpatient follow-up will be arranged.
Diagnostic data:
Chest x-ray 10/08/2025-lungs clear
Chest x-ray 10/14/2025-NAD
Echocardiogram 05/27/2024-EF 56%, trace mitral regurgitation,
PFTs 01/14/25:Spirometry demonstrated mild restrictive lung disease. Total lung capacity was 73% of predicted and previously was 73% of predictedand previously was 78% predicted.Forced vital capacity was 2.15 L or 83% of predicted and previously 1.87
L or 71% of predicted and 2.16 L, 1.98 L,, 1.86 L, 1.93 L, 2.10 L 2.09 LFEV1 was 1.76 L or 89% of predicted and previously 1.57 L or 78% of predicted, 1.78 L, 1.64 L, 1.57 L, 1.76 L, 1.84 L and 1.63 L,Total lung capacity was 73% of predicted
indicating mild restrictive lung disease. The total lung capacity was stable.
04-12-09: IgG level 876. IgG 3 low at 16. IgA 124. IgM 2244-5:
RAST screen-[place]- high specific IgE antibody titers
Total time spent on this consultation/encounter __38__ minutes which includes review of history, physical exam, medications, laboratory data, personal review of imaging, extensive review of outpatient records, discussion with care team and
respiratory therapy.
Subjective Data
-
Date of Service:
Date of Service: October 23, 2025
Chief Complaint: Pulmonary Follow Up
Subjective:
Seen today at bedside (late note entry). Afebrile overnight. Started on oral steroids yesterday, and she remains on room air saturating 97%.
Review of Systems
General: Other (Negative unless mentioned above)
Objective Data
Data Reviewed
Vital Signs / I&O / Oxygen:
Vital Signs
Temp Pulse Resp BP Pulse Ox
97.9 F 83 18 122/74 98
10/23/25 07:00 10/23/25 08:45 10/23/25 07:41 10/23/25 08:45 10/23/25 07:41
Intake and Output
10/22/25 10/23/25 10/24/25
06:59 06:59 06:59
Intake Total 2560 / 2560 1410 / 1410
Balance 2560 / 2560 1410 / 1410
SaO2 98
Physical Exam
General: Respiratory Distress (n), Comfortable and Other (NAD)
HEENT: Normocephalic and Anicteric
Cardiovascular: S1-S2 and Peripheral Edema (n)
Respiratory: Wheeze ([place] bilaterally when patient is coughing), Crackles (n), Rhonchi ([place] bilaterally), Non-Labored Respirations and Stridor (n)
GI: Soft, Non Distended, Non Tender and Normal Bowel Sounds
Neurology: Awake, Alert, Oriented and Tremors (n)
Skin: Warm, Dry, Cyanosis (n) and Jaundice (n)
Labs/Micro/Reports
Lab Data
10/23/25 06:04
10/23/25 06:04
Microbiology
10/19/25 21:48 Sputum Respiratory Culture - Final
10/19/25 21:48 Sputum Gram Stain - Final
[2025-10-23 16:50] LABS: Glucose - Point of Care 219 mg/dl (70-99)
[2025-10-23] MEDS: NOVOLOG FLEXPEN-MODERATE RESISTANCE 3 UNITS SC (17:39)
[2025-10-23] MEDS: LIPITOR 20 MG PO (17:41)
[2025-10-23] MEDS: ROBITUSSIN 200 MG PO (20:51)
[2025-10-23] MEDS: AMBIEN 5 MG PO (22:24)
[2025-10-23 22:28] LABS: Glucose - Point of Care 137 mg/dl (70-99)
[2025-10-23 23:11] VITALS: BP 136/78
[2025-10-24 06:00] VITALS: BMI 32.9
[2025-10-24 07:00] VITALS: BP 115/66
[2025-10-24] MEDS: DUONEB 3 ML INH ×4 (07:29→17:34)
[2025-10-24] MEDS: PULMICORT 0.5 MG INH ×2 (07:29→17:34)
[2025-10-24 07:34] LABS: Glucose - Point of Care 103 mg/dl (70-99)
[2025-10-24] MEDS: NOVOLOG FLEXPEN-MODERATE RESISTANCE SC (08:34)
[2025-10-24] MEDS: NON-FORMULARY ITEM 5 MG PO (08:34)
[2025-10-24] MEDS: DELTASONE 50 MG PO (08:35)
[2025-10-24] MEDS: VALTREX 500 MG PO (08:35)
[2025-10-24] MEDS: TESSALON PERLES 200 MG PO ×3 (08:35→22:10)
[2025-10-24] MEDS: XARELTO 20 MG PO (08:35)
[2025-10-24] MEDS: MYCELEX TROCHE 10 MG PO ×5 (08:35→22:11)
[2025-10-24] MEDS: MUCINEX 600 MG PO ×2 (08:36→19:36)
[2025-10-24] MEDS: WELLBUTRIN XL (24 hour extended release) 150 MG PO (08:36)
[2025-10-24] MEDS: ORETIC 12.5 MG PO (08:36)
[2025-10-24] MEDS: PEPCID 20 MG PO (08:36)
[2025-10-24] MEDS: BUSPAR 15 MG PO ×3 (08:36→22:10)
[2025-10-24] MEDS: GLUCOPHAGE 500 MG PO ×2 (08:36→16:47)
--- NOTE | 2025-10-24 08:36 | W.PN.HOSP.TC ---
Today's Communication/Plan
-
cont steroids bronchodilators
slow steroid taper planned
possible discharge tomorrow if cont to improve
Assessment / Plan
Assessment / Plan
Physical Exam
General: Not in acute distress
HEENT: Moist mucous membranes, oral thrush improved/resolving
Respiratory: Decreased breath sounds and expiratory wheezing bilaterally, some improvement noted. stable resp status room air. Wheezing notably better when breathing thru mouth instead of nose (patient follows with ENT outpt)
Cardiac: S1/S2 and RRR
GI: Soft, Non Tender, Non Distended and Normal Bowel Sounds
Musculoskeletal: No Cyanosis and No Edema
Neuro: AAO x 3 conversant coherent
Psych: calm
Assessment/Plan
65y F with H significant for severe persistent asthma (followed outpatient by Dr. Menjivar), immunoglobulin deficiency, long QT and prior VTE who presented to [facility] ED complaining of cough, wheezing and shortness of breath. Patient notes that she
started with headache, sinus congestion and sore throat around 10/07/25-10/08/25. She was seen in the ED here on 10/08/25 and diagnosed with COVID-19 at that time. Patient was not hypoxemic and had no cough, etc at that time. She stated that she
went home and increased her nebs to 4 times daily and increased her usual prednisone (6-7mg daily) to 30mg daily. Her symptoms did not significantly improve. About 2 days prior to presentation, she began to develop cough and wheezing. Her symptoms
have become progressively more severe and she presented to the emergency room for further evaluation.
Severe Persistent Asthma (on outpatient Nucala) with Acute Exacerbation
COVID-19 Infection
History respiratory failure/ventilator dependence when had COVID years ago
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
Chronic Steroid Dependence
Immunocompromised State
- COVID positive on 10/08. Completed Hospital Quarantine protocols.
- stable respiratory status room air
- Continue scheduled Duonebs, IV Decadron steroids tapered to Prednisone 50 mg daily, budesonide. Hold home Advair.
- completed 5 days Doxycycline
- Pulmonary eval appreciated slow prednisone taper recommended, reduce by 10 mg every 5th day till back to usual home dose 6 mg daily
- Continue prophylactic valacyclovir
- supportive care cough, scheduled mucinex prn Robitussin Tessalon, sputum cx if able
- CXR 10/19 appreciated no acute abn's
Oral thrush
-Clotrimazole 10 mg 5/d for 7 days 10/23-10/29
Prolonged QT resolved on ekg 10/14/25
Benign Hypertension
History of Hypertensive Emergency with Ocular Side Effects
- Stable.
- Continue home Losartan-HCTZ
reported hx DM-II
Steroid induced hyperglycemia
Obesity
- A1C 5.0% (non-diabetic level)
- Metformin resumed (for obesity)
- cont sliding scale
History of lung nodules
Urticaria
Atopy
Chronic sinusitis
History of Breast cancer status post bilateral mastectomy/reconstruction.
GERD
Cholecystectomy
Cervical fusion
Bilateral total knee replacement
Tonsillectomy.
Right shoulder replacement.
Bunionectomy.
Anxiety / Depression
- Continue alprazolam PRN
Chronic Pain Syndrome
- Continue Percocet PRN pain.
Resting Tremor
History of DVT/PE -- IVC filter-removed 2019.
-Continue Xarelto
DVT Prophylaxis: Xarelto
Code Status: Full
I spent a total of 40 minutes with the patient or on the floor. More than 50% of this time involved counseling and coordination of care.
Anticipated Discharge: Within 24 hours
Subjective/Interval History
-
Date of Service: October 24, 2025
Improving though symptoms not resolved. Otherwise denies new acute issues.
Objective Data
-
Vital Signs:
Vital Signs
Temp Pulse Resp BP Pulse Ox
98.4 F 89 16 136/78 98
10/23/25 23:11 10/24/25 07:33 10/24/25 07:33 10/23/25 23:11 10/24/25 07:33
I&O
10/23/25 10/24/25 10/25/25
06:59 06:59 06:59
Intake Total 1410 / 1410 1570 / 1570
Balance 1410 / 1410 1570 / 1570
[2025-10-24] MEDS: COZAAR 100 MG PO (08:37)
[2025-10-24 12:46] LABS: Glucose - Point of Care 192 mg/dl (70-99)
[2025-10-24] MEDS: SENOKOT-S 1 TABLET PO (12:47)
[2025-10-24] MEDS: NOVOLOG FLEXPEN-MODERATE RESISTANCE 1 UNITS SC (13:27)
--- NOTE | 2025-10-24 14:55 | W.PN.PUL3 ---
Today's Communication / Plan
-
Stable on RA, no acute distress, no new complaints
Continue prednisone with slow taper - decreasing by 10mg every 5th day until back at her usual home dose.
If patient doing well tomorrow morning (10/25/2025), then she is cleared for discharge from pulmonary perspective with steroid taper and with resumption of her home inhalers. Outpatient follow-up will be arranged.
Discharge planning per hospitalist team.
Pulmonary service will continue to briefly follow along - she already has appt next Saturday for with our office
Assessment
-
65-year-old former smoking female with history of severe persistent asthma on immunoglobulin replacement therapy as well as IL-5 inhibitor, long QT, DVT and pulm embolism, hypertension, diabetes and breast cancer presented with covid infection 1
week ago and had increasing wheezing, cough, shortness of breath presented to the emergency room with an asthma exacerbation-pulmonary consulted for asthma exacerbation/ covid infection 10/15/2025.
Asthma-severe persistent with acute exacerbation
Covid-19 infection, recent (10/08/2025)
IgG deficiency
Chronic steroid dependence
Mild normocytic anemia
Hyperglycemia
Conditions present prior to admission:
Asthma-severe persistent on IL-5 inhibitor Nucala
History respiratory failure/ventilator dependence.
History of lung nodules
Urticaria
Atopy
Chronic sinusitis
Prolonged QT syndrome.
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
Chronic steroid dependence.
History of DVT/PE.
Hypertension.
Diabetes.
Breast cancer.
Anxiety/depression
Resting tremor
GERD
Bilateral mastectomy/reconstruction. Cholecystectomy. Cervical fusion. Bilateral total knee replacement. Tonsillectomy. IVC filter-removed 2019. Right shoulder replacement. Bunionectomy.
Plan
Respiratory decompensation likely due to recent viral infection inducing asthma exacerbation in a patient with severe persistent asthma
Of note patient had multiple repetitive hospitalizations until IVIG and IL-5 inhibitor were initiated-has been wheeze free for nearly 2 years prior to this event
Continue DuoNeb 4 times daily - -> IV Decadron transitioned to prednisone 50mg daily on 10/22; continue prednisone with slow taper, decreasing by 10mg every 5th day until back at her usual home dose.
Previously we weaned down Decadron from 4 mg IV q8hr to 4mg IV q12hr
Switched Advair to budesonide nebulized twice a day.
No obvious consolidation noted on chest x-ray, discontinued ceftriaxone. s/p doxy from 10/14 - 10/19 for presumed acute bronchitis x 5 days.
Given her significant cough, continue scheduled Tessalon Perles and prn codeine cough syrup, especially if she needs something to help her fall/stay asleep
Sputum culture collected on 10/19, however there was over contamination with oropharyngeal guillermo
Encouraged IS
No obvious bacterial infection
Covid-19 infection on 10/08/2025-not a candidate for antivirals
Of note patient with 3 previous vaccinations and 1 natural infection leading to significant immunity
Resume Nucala and IVIG post discharge.
Trend WBC and monitor temperature curve
DVT prophylaxis-on Xarelto
Nutrition
Early mobilization
Patient last saw Dr. Menjivar 10/19 and has an appointment with Christel MIRELES 10/27/2025 at 11 AM
She will be transitioning to Dr. Longoria
Discharge planning per hospitalist team.
Pulmonary service will continue to briefly follow along.
Outpatient follow-up will be arranged.
Diagnostic data:
Chest x-ray 10/08/2025-lungs clear
Chest x-ray 10/14/2025-NAD
Echocardiogram 05/27/2024-EF 56%, trace mitral regurgitation,
PFTs 01/14/25:Spirometry demonstrated mild restrictive lung disease. Total lung capacity was 73% of predicted and previously was 73% of predictedand previously was 78% predicted.Forced vital capacity was 2.15 L or 83% of predicted and previously 1.87
L or 71% of predicted and 2.16 L, 1.98 L,, 1.86 L, 1.93 L, 2.10 L 2.09 LFEV1 was 1.76 L or 89% of predicted and previously 1.57 L or 78% of predicted, 1.78 L, 1.64 L, 1.57 L, 1.76 L, 1.84 L and 1.63 L,Total lung capacity was 73% of predicted
indicating mild restrictive lung disease. The total lung capacity was stable.
04-12-09: IgG level 876. IgG 3 low at 16. IgA 124. IgM 4-5:
RAST screen-[place]- high specific IgE antibody titers
Total time spent on this consultation/encounter __41__ minutes which includes review of history, physical exam, medications, laboratory data, personal review of imaging, extensive review of outpatient records, discussion with care team and
respiratory therapy.
Subjective Data
-
Date of Service:
Date of Service: October 24, 2025
Chief Complaint: Pulmonary Follow Up
Subjective:
Patient was seen and evaluated today at bedside (late note entry). Currently saturating 98% on room air. Afebrile overnight. She does not feel comfortable being discharged home today.
Review of Systems
General: Other (Negative unless mentioned above)
Objective Data
Data Reviewed
Vital Signs / I&O / Oxygen:
Vital Signs
Temp Pulse Resp BP Pulse Ox
98.6 F 89 16 136/78 98
10/24/25 07:00 10/24/25 08:37 10/24/25 07:33 10/24/25 08:37 10/24/25 07:33
Intake and Output
10/23/25 10/24/25 10/25/25
06:59 06:59 06:59
Intake Total 1410 / 1410 1570 / 1570
Balance 1410 / 1410 1570 / 1570
SaO2 98
Physical Exam
General: Respiratory Distress (n), Comfortable and Other (NAD)
HEENT: Normocephalic and Anicteric
Cardiovascular: S1-S2 and Peripheral Edema (n)
Respiratory: Wheeze ([place] bilaterally when patient is coughing), Crackles (n), Rhonchi ([place] bilaterally), Non-Labored Respirations and Stridor (n)
GI: Soft, Non Distended, Non Tender and Normal Bowel Sounds
Neurology: Awake, Alert, Oriented and Tremors (n)
Skin: Warm, Dry, Cyanosis (n) and Jaundice (n)
Labs/Micro/Reports
Lab Data
10/23/25 06:04
10/23/25 06:04
[2025-10-24 15:00] VITALS: BP 116/70
[2025-10-24 17:01] LABS: Glucose - Point of Care 200 mg/dl (70-99)
[2025-10-24] MEDS: LIPITOR 20 MG PO (17:39)
[2025-10-24] MEDS: NOVOLOG FLEXPEN-MODERATE RESISTANCE 3 UNITS SC (17:39)
[2025-10-24 21:29] LABS: Glucose - Point of Care 156 mg/dl (70-99)
[2025-10-24] MEDS: AMBIEN 5 MG PO (22:10)
[2025-10-24] MEDS: PHENERGAN WITH CODEINE SYRUP 5 ML PO (22:11)
[2025-10-24 23:00] VITALS: BP 130/69
[2025-10-25 06:00] VITALS: BMI 33.1
[2025-10-25] MEDS: DUONEB 3 ML INH ×3 (07:15→15:11)
[2025-10-25] MEDS: PULMICORT 0.5 MG INH (07:15)
[2025-10-25 07:27] VITALS: BP 116/69
[2025-10-25 08:16] LABS: Glucose - Point of Care 68 mg/dl (70-99)
--- NOTE | 2025-10-25 08:39 | W.PN.HOSP.TC ---
Today's Communication/Plan
-
Discharge today
Assessment / Plan
Assessment / Plan
Physical Exam
General: Not in acute distress
HEENT: Moist mucous membranes, oral thrush improved/resolving
Respiratory: Decreased breath sounds and expiratory wheezing bilaterally. stable resp status room air.
Cardiac: S1/S2 and RRR
GI: Soft, Non Tender, Non Distended and Normal Bowel Sounds
Musculoskeletal: No Cyanosis and No Edema
Neuro: AAO x 3 conversant coherent
Psych: calm
Assessment/Plan
65y F with [facility] significant for severe persistent asthma (followed outpatient by Dr. Menjivar), immunoglobulin deficiency, long QT and prior VTE who presented to [facility] ED complaining of cough, wheezing and shortness of breath. Patient notes that she
started with headache, sinus congestion and sore throat around 10/07/25-10/08/25. She was seen in the ED here on 10/08/25 and diagnosed with COVID-19 at that time. Patient was not hypoxemic and had no cough, etc at that time. She stated that she
went home and increased her nebs to 4 times daily and increased her usual prednisone (6-7mg daily) to 30mg daily. Her symptoms did not significantly improve. About 2 days prior to presentation, she began to develop cough and wheezing. Her symptoms
have become progressively more severe and she presented to the emergency room for further evaluation.
Severe Persistent Asthma (on outpatient Nucala) with Acute Exacerbation
Asthma-severe persistent on IL-5 inhibitor Nucala
History respiratory failure/ventilator dependence
COVID-19 Infection, recent (10/08/2025)
History respiratory failure/ventilator dependence when had COVID years ago
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
Chronic Steroid Dependence
Immunocompromised State
- COVID positive on 10/08. Completed Hospital Quarantine protocols.
- stable respiratory status room air
- Continue scheduled Duonebs, IV Decadron steroids tapered to Prednisone 50 mg daily (continue Prednisone with slow taper, decreasing by 10mg every 5th day until back at her usual home dose of 6 mg daily),
budesonide - nebulized twice a day. Stop Advair. Continue home inhalers -- use Duonebs Q4H for now.
- Completed 5 days Doxycycline
- Pulmonary eval appreciated slow prednisone taper recommended, reduce by 10 mg every 5th day till back to usual home dose 6 mg daily
- Continue prophylactic valacyclovir
- Supportive care cough, scheduled mucinex prn Robitussin Tessalon, sputum cx if able
- CXR 10/19 appreciated no acute abn's
Oral thrush
-Clotrimazole 10 mg 5/d for 7 days 10/23-10/29
Prolonged QT resolved on ekg 10/14/25
Benign Hypertension
History of Hypertensive Emergency with Ocular Side Effects
- Stable.
- Continue home Losartan-HCTZ
Reported history of Type 2 Diabetes Mellitus
Steroid induced hyperglycemia
Obesity
- A1C 5.0% (non-diabetic level)
- Metformin resumed (for obesity)
- continue sliding scale
History of lung nodules
Urticaria
Atopy
Chronic sinusitis
History of Breast cancer status post bilateral mastectomy/reconstruction.
GERD
Cholecystectomy
Cervical fusion
Bilateral total knee replacement
Tonsillectomy.
Right shoulder replacement.
Bunionectomy.
Anxiety / Depression
- Continue alprazolam PRN
Chronic Pain Syndrome
- Continue Percocet PRN pain.
Resting Tremor
History of DVT/PE -- IVC filter-removed 2019.
-Continue Xarelto
DVT Prophylaxis: Xarelto
Code Status: Full
More than 30 minutes spent in discharge including
Final examination of the patient
Summarizing hospital stay
Instructions for continuing care to all relevant caregivers
Preparation of discharge records, prescriptions, and referral forms
Total time spent (in minutes): 39
Anticipated Discharge: Today
Subjective/Interval History
-
Date of Service: October 25, 2025
Patient was seen and examined. She reported that her shortness of breath and cough are much improved, she feels she is ready to go home.
Objective Data
-
Vital Signs:
Vital Signs
Temp Pulse Resp BP Pulse Ox
97.5 F 80 16 116/69 100
10/25/25 07:27 10/25/25 07:27 10/25/25 07:27 10/25/25 07:27 10/25/25 07:27
I&O
10/24/25 10/25/25 10/26/25
06:59 06:59 06:59
Intake Total 1570 / 1570 1680 / 1680
Balance 1570 / 1570 1680 / 1680
[2025-10-25 08:54] LABS: Glucose - Point of Care 92 mg/dl (70-99)
[2025-10-25] MEDS: NOVOLOG FLEXPEN-MODERATE RESISTANCE SC ×2 (08:55→11:37)
[2025-10-25] MEDS: MUCINEX 600 MG PO (09:00)
[2025-10-25] MEDS: TESSALON PERLES 200 MG PO ×2 (09:00→14:52)
[2025-10-25] MEDS: XARELTO 20 MG PO (09:00)
[2025-10-25] MEDS: DELTASONE 50 MG PO (09:00)
[2025-10-25] MEDS: GLUCOPHAGE 500 MG PO (09:00)
[2025-10-25] MEDS: BUSPAR 15 MG PO ×2 (09:00→14:53)
[2025-10-25] MEDS: WELLBUTRIN XL (24 hour extended release) 150 MG PO (09:00)
[2025-10-25] MEDS: PEPCID 20 MG PO (09:00)
[2025-10-25] MEDS: MYCELEX TROCHE 10 MG PO ×4 (09:00→16:53)
[2025-10-25] MEDS: COZAAR 100 MG PO (09:01)
[2025-10-25] MEDS: NON-FORMULARY ITEM 5 MG PO (09:01)
[2025-10-25] MEDS: ORETIC 12.5 MG PO (09:01)
[2025-10-25 10:50] LABS: Glucose - Point of Care 131 mg/dl (70-99)
--- NOTE | 2025-10-25 11:45 | CM ---
Addendum entered by Dea Acosta 10/25/25 15:12:
IMM form completed and signed form placed on chart. physician stated his plan is for discharge home today.
Original Note:
Patient seen at bedside. Patient does not anticipate seeing any need for VN at home when discharged. Patient stated that she has a ride and CM reviewed IMM verbally with patient. CM will continue to follow for discharge planning needs.
Plan; home with no needs anticipated.
--- NOTE | 2025-10-25 12:38 | W.PN.PUL3 ---
Today's Communication / Plan
-
Okay to discharge from my perspective
Can continue budesonide nebulizer twice a day and DuoNebs 3-4 times a day until fully recovered
Subsequently transition back to usual regimen
Prednisone taper decrease by 10 mg every fifth day to her usual baseline
Restart Nucala as scheduled
IVIG infusions
Discharge planning today
Sign off
Assessment
-
65-year-old former smoking female with history of severe persistent asthma on immunoglobulin replacement therapy as well as IL-5 inhibitor, long QT, DVT and pulm embolism, hypertension, diabetes and breast cancer presented with covid infection 1
week ago and had increasing wheezing, cough, shortness of breath presented to the emergency room with an asthma exacerbation-pulmonary consulted for asthma exacerbation/ covid infection 10/15/2025.
Asthma-severe persistent with acute exacerbation
Covid-19 infection, recent (10/08/2025)
IgG deficiency
Chronic steroid dependence
Mild normocytic anemia
Hyperglycemia
Conditions present prior to admission:
Asthma-severe persistent on IL-5 inhibitor Nucala
History respiratory failure/ventilator dependence.
History of lung nodules
Urticaria
Atopy
Chronic sinusitis
Prolonged QT syndrome.
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
Chronic steroid dependence.
History of DVT/PE.
Hypertension.
Diabetes.
Breast cancer.
Anxiety/depression
Resting tremor
GERD
Bilateral mastectomy/reconstruction. Cholecystectomy. Cervical fusion. Bilateral total knee replacement. Tonsillectomy. IVC filter-removed 2019. Right shoulder replacement. Bunionectomy.
Plan
Respiratory decompensation likely due to recent viral infection inducing asthma exacerbation in a patient with severe persistent asthma.
-
Of note patient had multiple repetitive hospitalizations until IVIG and IL-5 inhibitor were initiated-has been wheeze free for nearly 2 years prior to this event
Continue DuoNeb 4 times daily - -> IV Decadron transitioned to prednisone 50mg daily on 10/22; continue prednisone with slow taper, decreasing by 10mg every 5th day until back at her usual home dose.
Switched Advair to budesonide nebulized twice a day.(Can continue these upon discharge) patient has at home. Can transition inhalers upon improvement.
No obvious consolidation noted on chest x-ray, discontinued ceftriaxone. s/p doxy from 10/14 - 10/19 for presumed acute bronchitis x 5 days.
Sputum culture collected on 10/19, however there was over contamination with oropharyngeal guillermo
-
No obvious bacterial infection
Covid-19 infection on 10/08/2025-not a candidate for antivirals
Of note patient with 3 previous vaccinations and 1 natural infection leading to significant immunity
-
Resume Nucala and IVIG post discharge.
DVT prophylaxis-on Xarelto
Patient last saw Dr. Menjivar 10/19 and has an appointment with Christel MIRELES 10/27/2025 at 11 AM
She will be transitioning to Dr. Longoria
Okay to discharge from my perspective
Prednisone taper
Nebulizer therapy and transition to inhalers upon recovery at home
Sign off
Diagnostic data:
Chest x-ray 10/08/2025-lungs clear
Chest x-ray 10/14/2025-NAD
Echocardiogram 05/27/2024-EF 56%, trace mitral regurgitation,
PFTs 01/14/25:Spirometry demonstrated mild restrictive lung disease. Total lung capacity was 73% of predicted and previously was 73% of predictedand previously was 78% predicted.Forced vital capacity was 2.15 L or 83% of predicted and previously 1.87
L or 71% of predicted and 2.16 L, 1.98 L,, 1.86 L, 1.93 L, 2.10 L 2.09 LFEV1 was 1.76 L or 89% of predicted and previously 1.57 L or 78% of predicted, 1.78 L, 1.64 L, 1.57 L, 1.76 L, 1.84 L and 1.63 L,Total lung capacity was 73% of predicted
indicating mild restrictive lung disease. The total lung capacity was stable.
04-12-09: IgG level 876. IgG 3 low at 16. IgA 124. IgM 2244-5-10:
RAST screen-[place]- high specific IgE antibody titers
Subjective Data
-
Date of Service:
Date of Service: October 25, 2025
Chief Complaint: Pulmonary Follow Up
Subjective:
Patient feels better
Was able to ambulate to the restroom without significant shortness of breath
Occasional coughing without phlegm production
Tolerating diet
Objective Data
Data Reviewed
Vital Signs / I&O / Oxygen:
Vital Signs
Temp Pulse Resp BP Pulse Ox
97.5 F 94 14 116/69 98
10/25/25 07:27 10/25/25 11:34 10/25/25 11:34 10/25/25 09:01 10/25/25 11:34
Intake and Output
10/24/25 10/25/25 10/26/25
06:59 06:59 06:59
Intake Total 1570 / 1570 1680 / 1680
Balance 1570 / 1570 1680 / 1680
SaO2 98
Physical Exam
General: Respiratory Distress (n), Comfortable and Other (NAD)
HEENT: Normocephalic and Anicteric
Cardiovascular: S1-S2 and Peripheral Edema (n)
Respiratory: Wheeze ([place] bilaterally when patient is coughing), Crackles (n), Rhonchi ([place] bilaterally), Non-Labored Respirations and Stridor (n)
GI: Soft, Non Distended, Non Tender and Normal Bowel Sounds
Neurology: Awake, Alert, Oriented and Tremors (n)
Skin: Warm, Dry, Cyanosis (n) and Jaundice (n)
Labs/Micro/Reports
Lab Data
10/23/25 06:04
10/23/25 06:04
[2025-10-25 13:32] LABS: Glucose - Point of Care 198 mg/dl (70-99)
[2025-10-25] MEDS: ROXICODONE 10 MG PO (14:51)
[2025-10-25 15:58] VITALS: BP 137/73
== END 2025-10-25 17:05 | disposition home or self-care (01) | DRG 178 ==
LOC: 2 NORTH 21:50
PROVIDERS: Internal Medicine; Nurse Practitioner; ADMITTING PHYSICIAN Hospitalist; ATTENDING PHYSICIAN Hospitalist; EMERGENCY PHYSICIAN Emergency Medicine; FAMILY PHYSICIAN Family Medicine; OTHER PHYSICIAN Internal Medicine Critical Care Medicine
DX: U07.1 COVID-19 (principal); J45.51 Severe persistent asthma with (acute) exacerbation; Z87.891 Personal history of nicotine dependence; Z79.52 Long term (current) use of systemic steroids; I10 Essential (primary) hypertension; G89.4 Chronic pain syndrome; F41.9 Anxiety disorder, unspecified; F32.A Depression, unspecified; E11.65 Type 2 diabetes mellitus with hyperglycemia; Z79.01 Long term (current) use of anticoagulants
CPT/HCPCS: 71046; 80048; 80053; 82805; 82962; 83036; 83735; 84100; 85025; 85027; 87070; 87205; 93005; 94640; 94644; 96374; 99285

== ENCOUNTER 2025-11-16 11:15 | Outpatient (RCR) | payer MEDICARE, OTHER, SELFPAY ==
[2025-11-04] VITALS (10 sets, daily range): BP systolic 143–170; BP diastolic 65–97; BMI 32.2
[2025-11-04] MEDS: NSS 1000 IV (10:32)
[2025-11-04] MEDS: TYLENOL 650 MG PO (10:33)
[2025-11-04] MEDS: SOLU-CORTEF 100 MG IV (10:51)
[2025-11-04] MEDS: BENADRYL 51 MG IV (10:52)
[2025-11-04] MEDS: GAMMAGARD 50 IV (11:25)
[2025-11-04] MEDS: GAMMAGARD 300 IV (12:22)
[2025-11-16 11:30] VITALS: BP 141/65
[2025-11-16] MEDS: NUCALA 1 MG SC (11:37)
== END 2025-11-17 10:09 | disposition home or self-care (01) ==
LOC: OID 11:15
PROVIDERS: ATTENDING PHYSICIAN Internal Medicine Critical Care Medicine; FAMILY PHYSICIAN Family Medicine
DX: J45.50 Severe persistent asthma, uncomplicated (principal); L50.9 Urticaria, unspecified; D80.1 Nonfamilial hypogammaglobulinemia; J82.83 Eosinophilic asthma; R06.89 Other abnormalities of breathing; J98.4 Other disorders of lung; D80.9 Immunodeficiency with predominantly antibody defects, unspecified; R91.8 Other nonspecific abnormal finding of lung field
CPT/HCPCS: 96361; 96365; 96366; 96367; 96372; 96375; J1569; J2182